=== PATIENT | male | born 1950 | race Caucasian/White ===

== ENCOUNTER 2016-11-11 10:48 | Inpatient (IN) | payer MEDICARE ==
[~2016-11-11] VITALS: Ht 177.8 cm; Wt 79.3 kg
[~2016-11-11 10:48] MED LIST: ALBU1AER INH; BACL10TA PO; FENT25DI T-DERMAL; LORA0.5T PO; METO25 PO; NITR.4 SL; OMEP40CA2 PO; PERC10TA27 PO
[2016-11-11 10:50] VITALS: BP 183/77; PULSE 74; RESP 18; TEMP 97.9; O2SAT 97
[2016-11-11 11:25] VITALS: RESP 18; O2SAT 97
--- NOTE | 2016-11-11 11:29 | PD ---
HPI Chief Complaint: Chest Pain Time Seen by Provider: 11:07 Travel History International Travel<30 days: No Contact w/Intl Traveler<30days: No Traveled to known affect area: No History of Present Illness HPI This patient complains of chest heaviness and pressure. It's located in the central sternal region. This been going on and off for 2 weeks now. He's had history of bypass grafting. He follows with Dr. Zuniga and reports having a nuclear stress test about one year ago. He has declined recommendations from the doctor to take aspirin and/or Plavix and does not do that. No shortness of breath. He is currently pain-free at this time. Severity is moderate when occurring. No obvious alleviating factors. PFSH Past Medical History Arthritis: Yes Asthma: No Autoimmune Disease: No Blood Disorders: No Anxiety: No Depression: No Heart Rhythm Problems: Yes Cancer: No Cardiovascular Problems: Yes (CABG (3 VESSEL)) High Cholesterol: Yes Chest Pain: Yes Congestive Heart Failure: No COPD: Yes Cerebrovascular Accident: No Coronary Artery Disease: Yes Diabetes: No Diminished Hearing: No Endocrine: No Gastrointestinal Disorders: Yes GERD: Yes Genitourinary: No Hepatitis: No Hiatal Hernia: Yes Hypertension: Yes Immune Disorder: No Implanted Vascular Access Dvce: Yes Kidney Stones: No Musculoskeletal: Yes (ARTHRITIS, DDD) Neurologic: Yes (NEUROPATHY LEFT FOOT/LEG/ARM/HAND) Psychiatric: Yes (ANXIETY) Reproductive: No Respiratory: Yes (COPD) Immunizations Current: No Migraines: No Renal Failure: No Seizures: No Sleep Apnea: No Thyroid Disease: No Triglycerides - High: Yes Ulcer: No PNEUMOCCOCAL Vaccine (Year): 2 Past Surgical History Abdominal Surgery: Yes (SARAH. ING. REP., (RIGHT SIDE X2), APPY) AICD: No Appendectomy: Yes Arteriovenous Shunt: No Body Medical Devices: LUMBAR HARDWARE Coronary Artery Bypass Graft: Yes (3x vessel) Ear Surgery: No Endocrine Surgery: No Eye Surgery: No Genitourinary Surgery: No Gynecologic Surgery: No Insulin Pump: No Joint Replacement: No Neurologic Surgery: Yes Oral Surgery: No Pacemaker: No Thoracic Surgery: Yes (CABG (3 VESSEL)) Social History Alcohol Use: No Tobacco Use: No Substance Use: No Allergies-Medications (Allergen,Severity, Reaction): Coded Allergies: Adhesives (Unverified Allergy, Severe, SKIN BREAKDOWN, 12/03/15) PAPER TAPE [place] Contrast Media (Verified Allergy, Severe, Anaphylaxis, 12/03/15) Flu Vaccine (Verified Allergy, Severe, GUILLIAN BARRE, 12/03/15) Betadine (Verified Allergy, Unknown, 12/03/15) Pt reacted to contrast dye request no Betadine Reported Meds & Prescriptions Reported Meds & Active Scripts Active Reported Infumorph 200 Inj (Morphine Sulfate) 10 Mg/Ml Inj 0.75 Mg EPIDURAL CONTINUOUS PRN Lorazepam 1 Mg Tab 1 Mg PO DAILY PRN Omeprazole 40 Mg Cap 40 Mg PO DAILY Oxycodone (Oxycodone HCl) 10 Mg Tab 10 Mg PO Q6H PRN Reglan (Metoclopramide HCl) 5 Mg Tab 5 Mg PO TIDAC Baclofen 10 Mg Tab 10 Mg PO Q8HR PRN Metoprolol Tartrate 25 Mg Tab 25 Mg PO DAILY Review of Systems General / Constitutional: No: Fever Eyes: No: Visual changes HENT: No: Headaches Cardiovascular: Positive: Chest Pain or Discomfort Respiratory: No: Shortness of Breath Gastrointestinal: No: Abdominal Pain Genitourinary: No: Dysuria Musculoskeletal: No: Pain Skin: No Rash Neurologic: No: Weakness Psychiatric: No: Depression Endocrine: No: Polydipsia Hematologic/Lymphatic: No: Easy Bruising Physical Exam Narrative GENERAL: Well-nourished, well-developed patient in no apparent distress. SKIN: Focused skin assessment reveals no rash and nodules. Skin is Warm and dry. HEAD: Atraumatic. Normocephalic. EYES: Pupils equal and round. No scleral icterus. No injection or drainage. ENT: No nasal bleeding or discharge. Mucous membranes pink and moist. NECK: Trachea midline. No JVD. CARDIOVASCULAR: Regular rate and rhythm. No murmur appreciated. RESPIRATORY: No accessory muscle use. Clear to auscultation. Breath sounds equal bilaterally. GASTROINTESTINAL: Abdomen soft, non-tender, nondistended. Hepatic and splenic margins not palpable. MUSCULOSKELETAL: No obvious deformities. No clubbing. No cyanosis. No edema. NEUROLOGICAL: Awake and alert. No obvious cranial nerve deficits. Motor grossly within normal limits. Normal speech. PSYCHIATRIC: Appropriate mood and affect; insight and judgment normal. Data Data Last Documented VS Vital Signs Date Time Temp Pulse Resp B/P Pulse Ox O2 Delivery O2 Flow Rate FiO2 11/11/16 12:04 68 18 132/84 98 Nasal Cannula 2 5/18/17 10:50 97.9 Orders Electrocardiogram (11/11/16 11:18) Basic Metabolic Panel (Bmp) (11/11/16 11:18) Ckmb (Isoenzyme) Profile (11/11/16 11:18) Complete Blood Count With Diff (11/11/16 11:18) Prothrombin Time / Inr (Pt) (11/11/16 11:18) Act Partial Throm Time (Ptt) (11/11/16 11:18) Troponin I (11/11/16 11:18) Chest, Single Ap (11/11/16 11:18) Ecg Monitoring (11/11/16 11:18) Iv Access Insert/Monitor (11/11/16 11:18) Oximetry (11/11/16 11:18) Aspirin (Aspirin) (11/11/16 11:30) Sodium Chloride 0.9% Flush (Ns Flush) (11/11/16 11:30) CKMB (11/11/16 11:26) CKMB% (11/11/16 11:26) Admit Order (Ed Use Only) (11/11/16 13:31) Labs Laboratory Tests Test 11/11/16 11:26 White Blood Count 10.2 TH/MM3 Red Blood Count 4.49 MIL/MM3 Hemoglobin 13.5 GM/DL Hematocrit 40.8 % Mean Corpuscular Volume 91.0 FL Mean Corpuscular Hemoglobin 30.2 PG Mean Corpuscular Hemoglobin 33.1 % Concent Red Cell Distribution Width 13.8 % Platelet Count 287 TH/MM3 Mean Platelet Volume 8.6 FL Neutrophils (%) (Auto) 52.5 % Lymphocytes (%) (Auto) 37.9 % Monocytes (%) (Auto) 6.4 % Eosinophils (%) (Auto) 2.0 % Basophils (%) (Auto) 1.2 % Neutrophils # (Auto) 5.3 TH/MM3 Lymphocytes # (Auto) 3.9 TH/MM3 Monocytes # (Auto) 0.6 TH/MM3 Eosinophils # (Auto) 0.2 TH/MM3 Basophils # (Auto) 0.1 TH/MM3 CBC Comment DIFF FINAL Differential Comment Prothrombin Time 11.0 SEC Prothromb Time International 1.0 RATIO Ratio Activated Partial 24.2 SEC Thromboplast Time Sodium Level 141 MEQ/L Potassium Level 3.8 MEQ/L Chloride Level 102 MEQ/L Carbon Dioxide Level 30.7 MEQ/L Anion Gap 8 MEQ/L Blood Urea Nitrogen 16 MG/DL Creatinine 0.98 MG/DL Estimat Glomerular Filtration 76 ML/MIN Rate Random Glucose 102 MG/DL Calcium Level 9.1 MG/DL Total Creatine Kinase 952 U/L Creatine Kinase MB 13.8 NG/ML Creatine Kinase MB % 1.4 % Troponin I LESS THAN 0.02 NG/ML MDM Medical Decision Making Medical Screen Exam Complete: Yes Emergency Medical Condition: Yes Medical Record Reviewed: Yes Differential Diagnosis Differential diagnosis includes MN, angina, pericarditis, pleurisy, GERD, anxiety. Narrative Course I have reviewed the patient's electronic medical record. Has been here multiple times for neck pain related events. He has had cervical surgery and has chronic pain and has a morphine pump IV placed I reviewed the EKG which shows sinus rhythm without ST elevation I reviewed the chest x-ray shows sinus rhythm without ectopy Extended cardiac monitoring shows sinus rhythm without ectopy CBC is normal Metabolic profile is normal CK is normal Troponin is normal Coagulation studies are normal I gave him an aspirin Patient's workup is negative and he is pain-free and asymptomatic. However he does have known coronary disease and has been having chest tightness on and off for 2 weeks. I was going to review with his registration representative Dr. Zuniga but he is out of town on vacation and unavailable. I'm going to make him a 23 hour observation in the chest pain center in order to rule out cardiac cause of his symptoms. Diagnosis Primary Impression: Chest pain Qualified Code: R07.2 - Precordial pain Admitting Information Admitting Physician Requests: Observation Darrion Griggs MD November 11, 2016 11:29
[2016-11-11] MEDS ORDERED: SODIUM CHLORIDE 0.9% FLUSH 10 ML FLUSH IVF PRN (11:30)
[2016-11-11] MEDS ORDERED: ASPIRIN 325 MG TAB PO ONE (11:30)
[2016-11-11 11:36] LABS: AUTOMATED NEUTROPHIL # 5.3 TH/MM3 (1.8-7.7); BASOPHIL # 0.1 TH/MM3 (0-0.2); BASOPHIL % 1.2 % (0.0-2.0); EOSINOPHIL # 0.2 TH/MM3 (0-0.4); HEMATOCRIT 40.8 % (39.0-51.0); HEMO FLAGS DIFF FINAL; LYMPH % 37.9 % (9.0-44.0); LYMPHOCYTE # 3.9 TH/MM3 (1.0-4.8); MEAN CORPUSCULAR HEMOGLOBIN 30.2 PG (27.0-34.0); MEAN CORPUSCULAR HGB CONC 33.1 % (32.0-36.0); MONO % 6.4 % (0.0-8.0); NEUT % 52.5 % (16.0-70.0); PLATELET COUNT 287 TH/MM3 (150-450); RED BLOOD COUNT 4.49 MIL/MM3 (4.50-5.90); RED CELL DISTRIBUTION WIDTH 13.8 % (11.6-17.2); WHITE BLOOD COUNT 10.2 TH/MM3 (4.0-11.0)
[2016-11-11 11:47] LABS: APTT (PATIENT) 24.2 SEC (24.3-30.1)
--- NOTE | 2016-11-11 11:50 | RADRPT ---
EXAM DATE/TIME: 11/11/2016 11:20 [place] COMPARISON: No previous studies available for comparison. INDICATIONS : Chest pains with shortness of breath. MEDICAL HISTORY : Myocardial infarction. Myocardial infarction. Diabetes mellitus type I. SURGICAL HISTORY : CABG. ENCOUNTER: Initial ACUITY: 1 day PAIN SCORE: Non-responsive. LOCATION: Bilateral chest FINDINGS: A single view of the chest demonstrates the lungs to be symmetrically aerated without evidence of mas s, infiltrate or effusion other than stable nodule right upper lobe. Clips and wires suggest CABG Th e cardiomediastinal contours are unremarkable. Osseous structures are intact. CONCLUSION: Stable examination. Clips and wires suggest CABG. Maxwell Edmondson MD on November 11, 2016 at 11:47 Board Certified Radiologist. This report was verified electronically.
[2016-11-11 11:51] LABS: ANION GAP 8 MEQ/L (5-15); BICARBONATE 30.7 MEQ/L (21.0-32.0); BLOOD UREA NITROGEN 16 MG/DL (7-18); CHLORIDE 102 MEQ/L (98-107); GLOMERULAR FILTRATION RATE 76 ML/MIN (>89); POTASSIUM 3.8 MEQ/L (3.5-5.1); SODIUM (NA) 141 MEQ/L (136-145)
[2016-11-11 11:55] LABS: CREATINE KINASE 952 U/L (39-308)
[2016-11-11 12:04] VITALS: BP 132/84; PULSE 68; RESP 18; O2SAT 98
[2016-11-11 12:07] LABS: CKMB 13.8 NG/ML (0.5-3.6)
[2016-11-11] MEDS ORDERED: LORA1TAB12 PO (12:38)
[2016-11-11] MEDS ORDERED: REGL5TAB PO (12:38)
[2016-11-11] MEDS ORDERED: METO25TA3 PO (12:38)
[2016-11-11] MEDS ORDERED: BACL10TA PO (12:38)
[2016-11-11] MEDS ORDERED: OXYC-395 PO (12:38)
[2016-11-11] MEDS ORDERED: [UNRECOGNIZED DRUG - CODE] EPIDURAL (12:38)
[2016-11-11] MEDS ORDERED: OMEP40CA2 PO (12:38)
[2016-11-11] MEDS ORDERED: SODIUM CHLOR 0.9% 1000 ML INJ 1,000 ML IV SCH (14:10)
[2016-11-11] MEDS ORDERED: ACETAMINOPHEN 500 MG CPLT PO PRN (14:15)
[2016-11-11] MEDS ORDERED: ONDANSETRON HCL 4 MG/2 ML VIAL IV PRN (14:15)
[2016-11-11] MEDS ORDERED: ALPRAZolam 0.25 MG TAB PO PRN (14:15)
[2016-11-11] MEDS ORDERED: SODIUM CHLORIDE 0.9% FLUSH 5 ML FLUSH IVF PRN (14:15)
--- NOTE | 2016-11-11 15:15 | HHI.HP ---
[facility] Primary Care Physician Ravi Ornelas DO Chief Complaint Chest pain History of Present Illness This is a 66-year-old male with history of CAD having a three-vessel bypass [address] Ortez that presents to ED complaining of one week of constant central chest pressure. He has been short of breath and diaphoretic intermittently. No nausea. He also states that he is having a hard time even standing up. He states after standing for about 45 minutes his legs become very weak and start to hurt and he has to sit down. He is having a difficult time even doing dishes. After sitting down for an hour the weakness will resolve. It doesn't really seem to affect his discomfort in his chest. He also history of hypertension. History of hyperlipidemia but does not take statins secondary to myalgias and weakness in extremities when he had a. He also has had Guillain [place] about 5 years ago. Review of Systems General: Patient denies fevers, chills recent, and recent travel HEENT: Patient denies headache, sore throat, difficulty swallowing. Cardiovascular: Has the chest discomfort as mentioned above. Denies sensation of heart beating rapidly or irregularly. No syncope. He has had diaphoresis. Respiratory: He has been short of breath. Denies inspirational chest discomfort. Denies coughing wheezing or hemoptysis. GI: Patient denies nausea, vomiting, diarrhea, abdominal pain, bloody stools. Musculoskeletal: He has had generalized myalgias were more so in the legs. Patient denies joint pain or edema. Denies calf pain or edema. Neurovascular: He has had generalized weakness but more so in the legs. Patient denies numbness, tingling. Denies headache. Endocrine: Denies polyuria and polydipsia. Hematologic: Denies easy bruising. Skin: Denies rash or itching. Past Family Social History Allergies: Coded Allergies: Adhesives (Unverified Allergy, Severe, SKIN BREAKDOWN, 12/03/15) PAPER TAPE OK Contrast Media (Verified Allergy, Severe, Anaphylaxis, 12/03/15) Flu Vaccine (Verified Allergy, Severe, GUILLIAN BARRE, 12/03/15) Betadine (Verified Allergy, Unknown, 12/03/15) Pt reacted to contrast dye request no Betadine Past Medical History CAD with a three-vessel bypass in 2009. Hypertension. Hyperlipidemia. Chronic neck pain. Guillan [place] 5 years ago. Denies diabetes. Past Surgical History He has had neck and back surgeries. He has had hernia repairs. He has had a three-vessel bypass in 2009. Appendectomy. Reported Medications Reported Meds & Active Scripts Active Reported Infumorph 200 Inj (Morphine Sulfate) 10 Mg/Ml Inj 0.75 Mg EPIDURAL CONTINUOUS PRN Lorazepam 1 Mg Tab 1 Mg PO DAILY PRN Omeprazole 40 Mg Cap 40 Mg PO DAILY Oxycodone (Oxycodone HCl) 10 Mg Tab 10 Mg PO Q6H PRN Reglan (Metoclopramide HCl) 5 Mg Tab 5 Mg PO TIDAC Baclofen 10 Mg Tab 10 Mg PO Q8HR PRN Metoprolol Tartrate 25 Mg Tab 25 Mg PO DAILY Active Ordered Medications Current Medications Medications (Trade) Dose Ordered Sig/Faviola Route Start Time Stop Time Status Last Admin (NS Flush) 2 ml UNSCH PRN IVF 11/11/16 14:15 (NS Flush) 2 ml BID IVF 11/11/16 21:00 (Tylenol) 500 mg Q4H PRN PO 11/11/16 14:15 ([place] 7.5-325 Mg) 1 tab Q4H PRN PO 11/11/16 14:15 (Zofran Inj) 4 mg Q6H PRN IV 11/11/16 14:15 Alprazolam 0.25 mg 0.25 mg Q8H PRN PO 11/11/16 14:15 (NS 1000 ml Inj) 1,000 ml @ 125 mls/hr Q8H IV 11/11/16 14:10 11/11/16 22:09 11/11/16 14:10 Family History His father had CAD. Social History Patient quit smoking in 2009 just prior to his bypass. Prior to that he smoked 2 and a pack of cigarettes daily for about 45 years. He denies alcohol or illicit drugs. He is . Physical Exam Vital Signs Vital Signs Date Time Temp Pulse Resp B/P Pulse Ox O2 Delivery O2 Flow Rate FiO2 11/11/16 12:04 68 18 132/84 98 Nasal Cannula 2 11/11/16 11:25 18 97 Room Air 11/11/16 10:58 70 18 98 Nasal Cannula 2 11/11/16 10:50 97.9 74 18 183/77 97 Physical Exam GENERAL: This is a well-nourished, well-developed patient, in no apparent distress. Patient speaks in clear complete sentences. Patient is pleasant. HEENT: Head is atraumatic and normocephalic. Neck is supple without lymphadenopathy and trachea is midline. No JVD or carotid bruits. CARDIOVASCULAR: Regular rate and rhythm without murmurs, gallops, or rubs. RESPIRATORY: Clear to auscultation. Breath sounds equal bilaterally. No wheezes , rales, or rhonchi. Chest wall is nontender. No use of accessory muscles. Well-healed midline scar over the sternum. GASTROINTESTINAL: Abdomen is nontender, nondistended. Abdomen soft. No obvious pulsatile mass or bruit. No CVA tenderness. Strong femoral pulses bilaterally. Normal bowel sounds in all quadrants. MUSCULOSKELETAL: Patient is moving upper and lower extremities freely however lower extremities are somewhat weaker. No calf tenderness or edema, no Homans sign. Strong pulses in upper and lower extremities. NEUROLOGICAL: Patient is alert and oriented. Cranial nerves 2-12 are grossly intact. Lower extremities are somewhat weaker as about a 4 out of 5 but symmetrical. Speech is clear. SKIN: No rash and turgor is normal. Laboratory Laboratory Tests Test 11/11/16 11:26 White Blood Count 10.2 Red Blood Count 4.49 Hemoglobin 13.5 Hematocrit 40.8 Mean Corpuscular Volume 91.0 Mean Corpuscular Hemoglobin 30.2 Mean Corpuscular Hemoglobin 33.1 Concent Red Cell Distribution Width 13.8 Platelet Count 287 Mean Platelet Volume 8.6 Neutrophils (%) (Auto) 52.5 Lymphocytes (%) (Auto) 37.9 Monocytes (%) (Auto) 6.4 Eosinophils (%) (Auto) 2.0 Basophils (%) (Auto) 1.2 Neutrophils # (Auto) 5.3 Lymphocytes # (Auto) 3.9 Monocytes # (Auto) 0.6 Eosinophils # (Auto) 0.2 Basophils # (Auto) 0.1 CBC Comment DIFF FINAL Differential Comment Prothrombin Time 11.0 Prothromb Time International 1.0 Ratio Activated Partial 24.2 Thromboplast Time Sodium Level 141 Potassium Level 3.8 Chloride Level 102 Carbon Dioxide Level 30.7 Anion Gap 8 Blood Urea Nitrogen 16 Creatinine 0.98 Estimat Glomerular Filtration 76 Rate Random Glucose 102 Calcium Level 9.1 Total Creatine Kinase 952 Creatine Kinase MB 13.8 Creatine Kinase MB % 1.4 Troponin I LESS THAN 0.02 Result Diagram: 11/11/16 1126 11/11/16 1126 Imaging Last 24 hours Impressions Chest X-Ray 11/11/16 1118 Signed Impressions: Service Date/Time: October 11:20 - CONCLUSION: Stable examination. Clips and wires suggest CABG. Maxwell Edmondson MD Course Initial EKG has sinus rhythm without significant ST segment depressions or elevations. Assessment and Plan Assessment and Plan * Chest pain: Patient's chest discomfort is atypical. He has had constant chest pressure for a week and his first troponin is normal. He has been seen by Dr. Moe Farrar of cardiology and the chest pain center. He will continue to have serial cardiac enzymes and EKGs for ruling out purposes. [facility] the weakness in his extremities and elevated CPK. * Elevated CPK: Patient will be given IV hydration. Will continue to trend. Will also get a ESR. * Weakness: This be further evaluated by Dr. Evans. I discussed this patient with Dr. Evans he will go for medical care at this time. Patient is agreeable to this plan. * Hypertension: Continue current medication. * Hyperlipidemia: Patient states he cannot tolerate statins. This can be discussed with his transfer specialist Dr. Zuniga. * Chronic neck and back pain: Patient has a morphine pump. Gabriel Chase November 11, 2016 15:15
[2016-11-11 15:30] LABS: CREATINE KINASE 839 U/L (39-308)
[2016-11-11 15:42] LABS: CKMB 10.6 NG/ML (0.5-3.6)
[2016-11-11] MEDS ORDERED: NALOXONE HCL 0.4 MG/ML AMP IV PRN (15:45)
[2016-11-11 15:49] VITALS: BP 139/74; PULSE 70; RESP 18; TEMP 98.3; O2SAT 93
--- NOTE | 2016-11-11 15:54 | HHI.HP ---
[facility] Service [facility] Primary Care Physician Ravi Ornelas DO Admission Diagnosis chest pain Diagnoses: (1) Chest pain (2) Lower extremity weakness (3) Hypertension (4) Rhabdomyolysis (5) Hyperlipidemia Chief Complaint: Chest pressure, leg weakness Travel History International Travel<30 Days: No Contact w/Intl Traveler <30 Da: No Traveled to Known Affected Are: No History of Present Illness The patient is a 66-year-old male with history of coronary artery disease and prior CABG 3 vessels who presented to the emergency department with complaint of chest pressure over the past week. He also states that he has been having episodes of significant lower extremity weakness. These have been occurring more frequently over the past few days. He reports that with chest pressure and lower extremity weakness, he has had dyspnea and diaphoretic episodes. He does not have chest pain currently. He reports intermittent shortness of breath, worse with exertion. He has a history of Guillain-Cuello syndrome, which was diagnosed about 5 years ago. Review of Systems Constitutional: COMPLAINS OF: Night Sweats (chronic), DENIES: Fever, Chills Eyes: DENIES: Blurred vision, Vision loss Ears, nose, mouth, throat: DENIES: Hearing loss Respiratory: COMPLAINS OF: Shortness of breath, DENIES: Cough, Wheezing, Sputum production Cardiovascular: COMPLAINS OF: Chest pain ("pressure"), Dyspnea on Exertion, DENIES: Palpitations, Lower Extremity Edema Gastrointestinal: DENIES: Abdominal pain, Constipation, Diarrhea, Nausea, Vomiting Genitourinary: DENIES: Urinary frequency, Urinary incontinence, Urgency, Hematuria, Dysuria, Nocturia Musculoskeletal: DENIES: Joint pain, Muscle aches Integumentary: DENIES: Pruritus, Rash Hematologic/lymphatic: DENIES: Bruising Neurologic: COMPLAINS OF: Localized weakness, DENIES: Headache, Paresthesias Past Family Social History Past Medical History Coronary artery disease Hypertension Hyperlipidemia Chronic neck pain Chronic back pain History of Guillain-Cuello syndrome Past Surgical History CABG 3 vessels in 2009 Multiple neck and back surgeries Multiple inguinal hernia repairs Appendectomy Reported Medications Infumorph 200 Inj (Morphine Sulfate) 10 Mg/Ml Inj 0.75 Mg EPIDURAL CONTINUOUS PRN Lorazepam 1 Mg Tab 1 Mg PO DAILY PRN Omeprazole 40 Mg Cap 40 Mg PO DAILY Oxycodone (Oxycodone HCl) 10 Mg Tab 10 Mg PO Q6H PRN Reglan (Metoclopramide HCl) 5 Mg Tab 5 Mg PO TIDAC Baclofen 10 Mg Tab 10 Mg PO Q8HR PRN Metoprolol Tartrate 25 Mg Tab 25 Mg PO DAILY Allergies: Coded Allergies: Adhesives (Unverified Allergy, Severe, SKIN BREAKDOWN, 12/03/15) PAPER TAPE OK Contrast Media (Verified Allergy, Severe, Anaphylaxis, 12/03/15) Flu Vaccine (Verified Allergy, Severe, GUILLIAN BARRE, 12/03/15) Betadine (Verified Allergy, Unknown, 12/03/15) Pt reacted to contrast dye request no Betadine Family History Denies Social History Denies alcohol or illicit drug use. Quit smoking in 2009. Had smoked 2 packs per day for about 45 years. Physical Exam Vital Signs Vital Signs Date Time Temp Pulse Resp B/P Pulse Ox O2 Delivery O2 Flow Rate FiO2 11/11/16 12:04 68 18 132/84 98 Nasal Cannula 2 11/11/16 11:25 18 97 Room Air 11/11/16 10:58 70 18 98 Nasal Cannula 2 11/11/16 10:50 97.9 74 18 183/77 97 Physical Exam GENERAL: Well-nourished, well-developed male in no acute distress. HEENT: Normocephalic, atraumatic. Pupils equal, round and reactive. Extraocular movements intact. No scleral icterus. No injection or drainage. Oropharynx is clear. Mucous membranes are moist. CARDIOVASCULAR: Regular rate and rhythm without murmurs, gallops, or rubs. RESPIRATORY: Clear to auscultation. No wheezes, rales, or rhonchi. Breathing is non-labored. GASTROINTESTINAL: Abdomen soft, non-tender, nondistended. EXTREMITIES: No lower extremity edema. No calf tenderness. PSYCH: Alert and oriented x 3. NEURO: Cranial nerves II through XII are grossly intact. Strength is 5/5 in all 4 extremities. Laboratory Laboratory Tests Test 11/11/16 11/11/16 11:26 14:36 White Blood Count 10.2 Red Blood Count 4.49 Hemoglobin 13.5 Hematocrit 40.8 Mean Corpuscular Volume 91.0 Mean Corpuscular Hemoglobin 30.2 Mean Corpuscular Hemoglobin 33.1 Concent Red Cell Distribution Width 13.8 Platelet Count 287 Mean Platelet Volume 8.6 Neutrophils (%) (Auto) 52.5 Lymphocytes (%) (Auto) 37.9 Monocytes (%) (Auto) 6.4 Eosinophils (%) (Auto) 2.0 Basophils (%) (Auto) 1.2 Neutrophils # (Auto) 5.3 Lymphocytes # (Auto) 3.9 Monocytes # (Auto) 0.6 Eosinophils # (Auto) 0.2 Basophils # (Auto) 0.1 CBC Comment DIFF FINAL Differential Comment Prothrombin Time 11.0 Prothromb Time International 1.0 Ratio Activated Partial 24.2 Thromboplast Time Sodium Level 141 Potassium Level 3.8 Chloride Level 102 Carbon Dioxide Level 30.7 Anion Gap 8 Blood Urea Nitrogen 16 Creatinine 0.98 Estimat Glomerular Filtration 76 Rate Random Glucose 102 Calcium Level 9.1 Total Creatine Kinase 952 839 Creatine Kinase MB 13.8 10.6 Creatine Kinase MB % 1.4 1.3 Troponin I LESS THAN 0.02 LESS THAN 0.02 Result Diagram: 11/11/16 1126 11/11/16 1126 Imaging Last Impressions Chest X-Ray 11/11/16 1118 Signed Impressions: Service Date/Time: October 11:20 - CONCLUSION: Stable examination. Clips and wires suggest CABG. Maxwell Edmondson MD Assessment and Plan Assessment and Plan 1. Chest pain/pressure: No pain currently. Initial troponin is negative. Patient sees Dr. Zuniga for cardiology. Check serial cardiac enzymes and EKGs. Continue aspirin, oxygen. 2. Lower extremity weakness: Uncertain etiology. CK is elevated. Possible rheumatologic versus neurologic etiology. Consult neurology. Monitor CK level. 3. Rhabdomyolysis: CK is elevated. Continue IV fluids. Monitor serum CK level as well as renal function. 4. Hypertension: Continue metoprolol. 5. Hyperlipidemia: Patient does not take statin secondary to adverse reactions in the past. 6. Coronary artery disease: Patient status post CABG 3 vessels in 2009. Continue blood pressure control. Will consult patient's chief electrician if necessary. 7. DVT prophylaxis: Heparin. Problem Qualifiers (1) Chest pain: Qualified Code: R07.2 - Precordial pain Darrion Evans MD November 11, 2016 15:54
[2016-11-11] MEDS ORDERED: BACLOFEN 10 MG TAB PO PRN (16:00)
[2016-11-11] MEDS ORDERED: PILL SPLITTER OTHER PRN (16:15)
--- NOTE | 2016-11-11 17:56 | MB ---
cc: BOLA EDWARDS DATE OF CONSULTATION: 11/11/2016 REASON FOR CONSULTATION: Weakness, rule out recurrent Guillain-Logan syndrome. HISTORY OF PRESENT ILLNESS Mr. Bonilla is a 66-year-old man who had a history Guillain Logan syndrome about ten years ago which responded well to IVIG. For the past week he notices a heaviness of his chest, difficulty with shortness of breath. Congestion feeling. He has had progressive weakness of both legs as well. No real weakness of the arms. PAST HISTORY 1. 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 History of hypertension 2. Hyperlipidemia 3. Coronary artery disease 4. Coronary artery bypass graft in 2009. MEDICATIONS: At home are; 1. Oxycodone for pain 2. Morphine sulfate 3. Lorazepam 4. Reglan 5. Baclofen 6. Metoprolol. ALLERGIES ADHESIVES CONTRAST MEDIA FLU VACCINE BETADINE NEUROLOGIC EXAMINATION VITAL SIGNS: Blood pressure is 139/74, pulse 70, respirations 18, temperature 9 degrees. NEUROLOGIC EXAMINATION: Higher cortical functions normal. Cranial nerves are intact. Motor exam he has 5/5 strength in all major groups in both upper extremities. She has 4/5 iliopsoas symmetric 5/5 quads symmetric 4/5 hamstring symmetric 4+/5 tib anterior and gastrocnemius after symmetric. He is areflexic in both upper and lower extremities. There is no Babinski. Sensory exam intact. LABORATORY DATA White count 10,002, hemoglobin 13.5, 140.8% platelet count 287,000, PT 11, INR one, APTT 24.2. Sodium is 141, potassium 3.8, chloride two, CO2 is 30.7. The BUN is 16, creatinine 0.98. 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 RECOMMENDATIONS We will get an MRI cervical, thoracic and lumbar spine if this is unremarkable. I recommend lumbar puncture and consider IVIG therapy. MD LITZY Mcneill/jori /4:53 PM /5:42 PM
[2016-11-11] MEDS: METOCLOPRAMIDE HCL 10 MG TAB PO SCH (18:00)
[2016-11-11] MEDS ORDERED: HEPARIN SODIUM - SQ 10,000 UNITS/ML VIAL SQ SCH (18:00)
[2016-11-11 18:23] LABS: CREATINE KINASE 955 U/L (39-308)
[2016-11-11 18:35] LABS: CKMB 11.4 NG/ML (0.5-3.6)
[2016-11-11] MEDS: LORazepam 1 MG TAB PO PRN (18:50)
[2016-11-11] MEDS: SODIUM CHLORIDE 0.9% FLUSH 5 ML FLUSH IVF SCH (19:52)
[2016-11-11] MEDS ORDERED: MORPHINE SULFATE 10 MG/ML OTHER PRN (20:00)
[2016-11-11] MEDS ORDERED: [UNRECOGNIZED DRUG - OTHER] OTHER PRN (20:00)
--- NOTE | 2016-11-11 21:09 | RADRPT ---
EXAM DATE/TIME: 11/11/2016 20:16 [facility] COMPARISON: No previous studies available for comparison. INDICATIONS : Neck pain. RADIATION DOSE: 29.79 CTDIvol (mGy) MEDICAL HISTORY : Gastroesophageal reflux disease. Anneliese Cuello, hiatal hernia SURGICAL HISTORY : Fusion, lumbar. CABG ENCOUNTER: Initial ACUITY: 1 day PAIN SCALE: 5/10 LOCATION: Bilateral neck TECHNIQUE: Volumetric scanning of the cervical spine was performed. Multiplanar reconstructions i n the sagittal, coronal and oblique axial planes were performed. Using automated exposure control a nd adjustment of the mA and/or kV according to patient size, radiation dose was kept as low as reason ably achievable to obtain optimal diagnostic quality images. FINDINGS: The patient has had a large laminectomy from C3 to C6 with unilateral fixation on the l eft. There is minimal central bulging at C2-C3 that is touching but not effacing the cord. There is inters pace ridging at C3-C4, C4-C5 and C5-C6. At C6-C7 there is a central disc bulge that is touching the cord. There is interspace ridging at C7-T1 that is touching the cord. CONCLUSION: 1. Extensive degenerative changes as described above. 2. Moderate spinal stenosis at C6-C7 and C7-T1. Kevin Lindquist MD FACR on November 11, 2016 at 20:52 Board Certified Radiologist. This report was verified electronically.
--- NOTE | 2016-11-11 21:21 | RADRPT ---
EXAM DATE/TIME: 11/11/2016 20:24 [facility] COMPARISON: No previous studies available for comparison. INDICATIONS : Upper back pain. RADIATION DOSE: 21.67 CTDIvol (mGy) ; Combined studies MEDICAL HISTORY : Chronic obstructive pulmonary disease. Anneliese Cuello, hiatal hernia SURGICAL HISTORY : CABG Fusion, lumbar. ENCOUNTER: Initial ACUITY: 1 day PAIN SCALE: 5/10 LOCATION: Bilateral upper back TECHNIQUE: Volumetric scanning of the thoracic spine was performed. Multiplanar reconstructions in the sagittal, coronal and oblique axial planes were performed. Using automated exposure control a nd adjustment of the mA and/or kV according to patient size, radiation dose was kept as low as reason ably achievable to obtain optimal diagnostic quality images. FINDINGS: There are degenerative changes in the thoracic spine. Upper thoracic spine is unremark able. T7-T8: There is mild interspace ridging at T7-T8 without significant spinal stenosis. T8-T9: The thecal sac has a normal diameter. No evidence of disc bulge or protrusion. T9-T10: The thecal sac has a normal diameter. No evidence of disc bulge or protrusion. T10-T11: The thecal sac has a normal diameter. No evidence of disc bulge or protrusion. T11-T12: The thecal sac has a normal diameter. No evidence of disc bulge or protrusion. T12-L1: There is mild interspace ridging. Spinal stimulator is noted. CONCLUSION: Degenerative changes, otherwise negative for radiographically significant stenosis. Kevin Lindquist MD FACR on November 11, 2016 at 21:16 Board Certified Radiologist. This report was verified electronically.
[2016-11-11 21:30] VITALS: BP 135/75; PULSE 70; RESP 19; TEMP 98.2; O2SAT 95
--- NOTE | 2016-11-11 21:38 | RADRPT ---
EXAM DATE/TIME: 11/11/2016 20:24 [facility] COMPARISON: No previous studies available for comparison. INDICATIONS : Lower back pain. RADIATION DOSE: 21.67 CTDIvol (mGy) ; Combined studies MEDICAL HISTORY : Chronic obstructive pulmonary disease. Anneliese Cuello, hiatal hernia SURGICAL HISTORY : CABG Inguinal hernia repair. Fusion, lumbar. ENCOUNTER: Initial ACUITY: 1 day PAIN SCALE: 5/10 LOCATION: Bilateral lower back TECHNIQUE: Volumetric scanning of the lumbar spine was performed. Multiplanar reconstructions in the sagittal, coronal and oblique axial planes were performed. Using automated exposure control and adjustment of the mA and/or kV according to patient size, radiation dose was kept as low as reasonab ly achievable to obtain optimal diagnostic quality images. FINDINGS: The patient has a spinal stimulator in place. There is hardware at the L3-4 level. L1-L2: Moderate interspace ridging is present at L1-2 with vacuum changes evident. Spinal stenosi s is minimal. L2-L3: There is mild disc bulging at L2-3 with degenerative changes of the facets. Spinal stenosi s is mild. L3-L4: Transpedicular fixation is evident. Spinal stenosis is mild. There is a hemilaminectomy o n the left. L4-L5: There is minimal anterolisthesis of L4 on L5 with moderate spinal stenosis and bilateral ne ural foraminal encroachment. Neural foraminal encroachment is worse on the right than the left. Lat eral recess stenosis is evident. L5-S1: There is mild bulging L5-S1 causing some flattening of the anterior thecal space. Mild deg enerative changes are present in the facets. CONCLUSION: Degenerative changes and previous fixation as described above. Most significant steno sis at the L4-5 level. Kevin Lindquist MD FACR on November 11, 2016 at 21:30 Board Certified Radiologist. This report was verified electronically.
[2016-11-11 23:35] VITALS: BP 125/70; PULSE 73; RESP 19; TEMP 98.2; O2SAT 96
[2016-11-12] VITALS (7 sets, daily range): BP systolic 103–130; BP diastolic 59–84; PULSE 68–93; RESP 18–20; TEMP 97.2–98.7; O2SAT 94–97
[2016-11-12 07:57] LABS: ALKALINE PHOSPHATASE 68 U/L (45-117); ALT (GPT) 21 U/L (12-78); ANION GAP 8 MEQ/L (5-15); AST (GOT) 23 U/L (15-37); BICARBONATE 28.9 MEQ/L (21.0-32.0); BLOOD UREA NITROGEN 15 MG/DL (7-18); CHLORIDE 104 MEQ/L (98-107); GLOMERULAR FILTRATION RATE 86 ML/MIN (>89); POTASSIUM 3.9 MEQ/L (3.5-5.1); SODIUM (NA) 141 MEQ/L (136-145); TOTAL BILIRUBIN ADULT 0.5 MG/DL (0.2-1.0)
--- NOTE | 2016-11-12 08:33 | HHI.PR ---
Review/Management Diagnosis Le weakness could be related to spinal stenosis Plan Will ask Dr Brewster opinion before proceeding with LP Diagnosis/Plan: Subjective Subjective Comments No acute events reported Active Medications Current Medications Medications (Trade) Dose Ordered Sig/Faviola Route Start Time Stop Time Status Last Admin (NS Flush) 2 ml UNSCH PRN IVF 11/11/16 14:15 (NS Flush) 2 ml BID IVF 11/11/16 21:00 (Tylenol) 500 mg Q4H PRN PO 11/11/16 14:15 (Smoaks 7.5-325 Mg) 1 tab Q4H PRN PO 11/11/16 14:15 (Zofran Inj) 4 mg Q6H PRN IV 11/11/16 14:15 (Xanax) 0.25 mg Q8H PRN PO 11/11/16 14:15 (Narcan Inj) 0.4 mg UNSCH PRN IV 11/11/16 15:45 (Lioresal) 10 mg Q8HR PRN PO 11/11/16 16:00 (Ativan) 1 mg DAILY PRN PO 11/11/16 16:00 11/11/16 18:50 (Lopressor) 25 mg DAILY PO 11/12/16 09:00 Patient Own Medication PT OWN MED: CONTINUOUS PRN OTHER 11/11/16 20:00 (Reglan) 5 mg TIDAC PO 11/11/16 17:00 11/11/16 18:00 (Protonix) 40 mg DAILY PO 11/12/16 09:00 (Pill Splitter) 1 ea UNSCH PRN OTHER 11/11/16 16:15 Allergies Allergies Coded Allergies Adhesives (Unverified Allergy, Severe, SKIN BREAKDOWN, 12/03/15) Contrast Media (Verified Allergy, Severe, Anaphylaxis, 12/03/15) Flu Vaccine (Verified Allergy, Severe, GUILLIAN BARRE, 12/03/15) Betadine (Verified Allergy, Unknown, 12/03/15) Exam I&O / VS Vital Signs Date Time Temp Pulse Resp B/P Pulse Ox O2 Delivery O2 Flow Rate FiO2 11/12/16 07:07 97.8 80 20 128/73 95 11/12/16 05:23 98.2 72 20 130/72 97 11/12/16 01:58 73 11/11/16 23:35 98.2 73 19 125/70 96 11/11/16 21:36 21 11/11/16 21:30 98.2 70 19 135/75 95 11/11/16 15:49 98.3 70 18 139/74 93 11/11/16 12:04 68 18 132/84 98 Nasal Cannula 2 11/11/16 11:25 18 97 Room Air 11/11/16 10:58 70 18 98 Nasal Cannula 2 11/11/16 10:50 97.9 74 18 183/77 97 Exam Comments alert, speech normal CN 2-12 normal MOTOR--5/5 BUE, 5/5 Bilateral iliopsoas, 4/5 bilateral hamstring, 5/5 bilateral tibialis anterior . He has spasticity in the right leg DTR--absent BUE and BLE, has babinski sign on left Objective Radiology Results CT cervical spine--stenosis C56, C7T1. Lumbar DT--stenosis Micro and Labs Laboratory Tests Test 11/11/16 11/11/16 11/11/16 11/12/16 11:26 14:36 17:30 06:58 White Blood Count 10.2 Red Blood Count 4.49 Hemoglobin 13.5 Hematocrit 40.8 Mean Corpuscular Volume 91.0 Mean Corpuscular Hemoglobin 30.2 Mean Corpuscular Hemoglobin 33.1 Concent Red Cell Distribution Width 13.8 Platelet Count 287 Mean Platelet Volume 8.6 Neutrophils (%) (Auto) 52.5 Lymphocytes (%) (Auto) 37.9 Monocytes (%) (Auto) 6.4 Eosinophils (%) (Auto) 2.0 Basophils (%) (Auto) 1.2 Neutrophils # (Auto) 5.3 Lymphocytes # (Auto) 3.9 Monocytes # (Auto) 0.6 Eosinophils # (Auto) 0.2 Basophils # (Auto) 0.1 CBC Comment DIFF FINAL Differential Comment Erythrocyte Sedimentation Rate 17 Prothrombin Time 11.0 Prothromb Time International 1.0 Ratio Activated Partial 24.2 Thromboplast Time Sodium Level 141 141 Potassium Level 3.8 3.9 Chloride Level 102 104 Carbon Dioxide Level 30.7 28.9 Anion Gap 8 8 Blood Urea Nitrogen 16 15 Creatinine 0.98 0.88 Estimat Glomerular Filtration 76 86 Rate Random Glucose 102 103 Calcium Level 9.1 8.7 Total Creatine Kinase 952 839 955 Creatine Kinase MB 13.8 10.6 11.4 Creatine Kinase MB % 1.4 1.3 1.2 Troponin I LESS THAN 0.02 LESS THAN 0.02 LESS THAN 0.02 Thyroid Stimulating Hormone 2.410 3rd Gen Total Bilirubin 0.5 Aspartate Amino Transf 23 (AST/SGOT) Alanine Aminotransferase 21 (ALT/SGPT) Alkaline Phosphatase 68 Total Protein 6.3 Albumin 3.2 Ravi Alvarado PhD November 12, 2016 08:33
--- NOTE | 2016-11-12 08:36 | HHI.PR ---
Subjective Remarks Follow up lower extremity weakness, chest pressure. Patient states that he has not been out of bed this morning, but still feels weak. He is still having chest pressure as well. Objective Vitals Vital Signs Date Time Temp Pulse Resp B/P Pulse Ox O2 Delivery O2 Flow Rate FiO2 11/12/16 07:07 97.8 80 20 128/73 95 11/12/16 05:23 98.2 72 20 130/72 97 11/12/16 01:58 73 11/11/16 23:35 98.2 73 19 125/70 96 11/11/16 21:36 21 11/11/16 21:30 98.2 70 19 135/75 95 11/11/16 15:49 98.3 70 18 139/74 93 11/11/16 12:04 68 18 132/84 98 Nasal Cannula 2 11/11/16 11:25 18 97 Room Air 11/11/16 10:58 70 18 98 Nasal Cannula 2 11/11/16 10:50 97.9 74 18 183/77 97 Result Diagram: 11/11/16 1126 11/12/16 0658 Imaging Last Impressions Chest X-Ray 11/11/16 1118 Signed Impressions: Service Date/Time: October 11:20 - CONCLUSION: Stable examination. Clips and wires suggest CABG. Maxwell Edmondson MD Thoracic Spine CT 11/11/16 0000 Signed Impressions: Service Date/Time: October 20:24 - CONCLUSION: Degenerative changes, otherwise negative for radiographically significant stenosis. Kevin Lindquist MD FACR Lumbar Spine CT 11/11/16 0000 Signed Impressions: Service Date/Time: October 20:24 - CONCLUSION: Degenerative changes and previous fixation as described above. Most significant stenosis at the L4-5 level. Kevin Lindquist MD FACR Cervical Spine CT 11/11/16 0000 Signed Impressions: Service Date/Time: October 20:16 - CONCLUSION: 1. Extensive degenerative changes as described above. 2. Moderate spinal stenosis at C6- C7 and C7-T1. Kevin Lindquist MD FACR Objective Remarks General: No acute distress. Heart: Regular rate and rhythm. No murmur. Lungs: Clear to auscultation bilaterally. No wheezes, rales, or rhonchi. Breathing is nonlabored. Abdomen: Soft, nontender, nondistended. Extremities: No lower extremity edema. Psych: Alert and oriented. Procedures None Urinary Catheter: No Vascular Central Line Catheter: No A/P Problem List: (1) Chest pain ICD Code: R07.9 Status: Acute (2) Lower extremity weakness ICD Code: R29.898 Status: Acute (3) Hypertension ICD Code: I10 Status: Chronic (4) Rhabdomyolysis ICD Code: M62.82 Status: Acute (5) Hyperlipidemia ICD Code: E78.5 Status: Chronic Assessment and Plan 1. Chest pain/pressure: Still having chest pressure. Serial troponins are negative. CK remains elevated. Consult patient's shirt marker, Dr. Zuniga. Continue aspirin, oxygen. 2. Lower extremity weakness: Uncertain etiology. CK remained elevated. Possible rheumatologic versus neurologic etiology. Appreciate neurology recommendations. Monitor CK level. CT reports noted. May need lumbar puncture. 3. Rhabdomyolysis: CK is elevated. Continue IV fluids. Monitor serum CK level as well as renal function. 4. Hypertension: Continue metoprolol. 5. Hyperlipidemia: Patient does not take statin secondary to adverse reactions in the past. 6. Coronary artery disease: Patient status post CABG 3 vessels in 2009. Continue blood pressure control. Will consult patient's shirt marker. 7. DVT prophylaxis: Heparin. Problem Qualifiers (1) Chest pain: Qualified Code: R07.2 - Precordial pain Darrion Evans MD November 12, 2016 08:36
[2016-11-12] MEDS ORDERED: METOPROLOL TARTRATE 25 MG TAB PO SCH (09:00)
[2016-11-12] MEDS ORDERED: ASPIRIN EC 325 MG TABEC PO SCH (09:00)
[2016-11-12] MEDS: METOCLOPRAMIDE HCL 10 MG TAB PO SCH ×3 (09:13→17:46)
[2016-11-12] MEDS: PANTOPRAZOLE SOD 40 MG DELAYED RELEASE TAB PO SCH (09:13)
[2016-11-12] MEDS: SODIUM CHLORIDE 0.9% FLUSH 5 ML FLUSH IVF SCH ×2 (09:14→19:56)
[2016-11-12 13:33] LABS: CKMB 7.5 NG/ML (0.5-3.6)
--- NOTE | 2016-11-12 18:14 | MB ---
cc: IAN REZA DATE OF CONSULTATION: 11/12/2016. HISTORY OF PRESENT ILLNESS: Mr. Bonilla is a 63-year-old white male with history of three-vessel bypass. He is a patient of Dr. Zuniga. He has had a one week history of substernal chest pressure and dyspnea on exertion. He has also had lower extremity weakness and episodes of diaphoresis. He continues to have intermittent chest pressure and dyspnea. History of Guillain-Davenport syndrome. PAST MEDICAL HISTORY: His past medical history is positive for: 1. Coronary bypass in 2009. 2. Hypertension. 3. Dyslipidemia. 4. Chronic neck pain and back pain. 5. History of Guillain-Davenport syndrome. 6. History of hernia repair. 7. Appendectomy. MEDICATIONS: His medications include: 1. Metoprolol. 2. Baclofen. 3. Reglan. 4. Oxycodone. 5. Lorazepam. ALLERGIES: 2. CONTRAST. 3. FLU VACCINE. 4. BETADINE. SOCIAL HISTORY: The patient does not smoke. He quit smoking in 2009. He does not drink alcohol. FAMILY HISTORY: Family history is negative for heart disease. REVIEW OF SYSTEMS: The review of systems is otherwise negative. PHYSICAL EXAMINATION: VITAL SIGNS: Blood pressure 125/64, pulse 68 and regular. HEAD, EYES, EARS, NOSE, THROAT: Negative. NECK: 2+ carotid upstrokes, no bruits. LUNGS: Clear. HEART: Regular with no murmurs, rubs or gallops. ABDOMEN: Abdomen soft. No bruits. EXTREMITIES: Without edema. 2+ distal pulses. NEUROLOGIC: Grossly nonfocal. EKGS: EKG was reviewed and showed normal sinus rhythm, normal axis and intervals, nonspecific T wave changes. LABS: Hemoglobin 13.5. Potassium 3.9, creatinine 0.9. CK 839, 955 and 1162. Troponin negative x3. DIAGNOSIS: 1. Unstable angina. 2. 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 3. Hypertension. 4. Rhabdomyolysis. 5. Dyslipidemia. 6. Previous history of smoking. DISPOSITION: Mr. Bonilla has continuing episodes of angina. He has been ruled out for myocardial infarction by enzymes. He has a history of previous bypass. 1. I recommend to continue therapy for angina. 2. Given his previous history, he may need cardiac catheterization for his further evaluation. 3. Dr. Zuniga, his primary tire man, will see him on Tuesday. MD GAYLE Handy/BEL /4:40 PM /6:02 PM RUTHY
--- NOTE | 2016-11-12 18:26 | MB ---
cc: MAYE LARSON M.D., ROHIT K. M.D. BYRNE, JAMES J. D.O. SCOTT, JAMES A. M.D. DATE OF CONSULTATION: 11/12/2016. REASON FOR CONSULTATION: Weakness. HISTORY OF PRESENT ILLNESS: This is a 66-year-old gentleman who presented to the emergency room on 11/11/16 with complaints of anterior chest and sternal area pressure and heaviness along with discomfort. He has a chronic history of neck and low back pain along with some numbness and paresthesias in the left ulnar aspect and the right anterior thigh. He has undergone C3-7 laminectomies with lateral mass fixation for multilevel cervical stenosis with spinal cord compression and myelopathy on August 04, 2015. He also has a history of L3-4 TLIF undertaken in March of 2014. More recently about five months ago, he had an intrathecal pain pump placed by the pain specialist which is helping with his back pain, but not as much the neck pain, he states. He also has a history of Guillain-Morley syndrome involving the lower extremities and from the mid thoracic spine area down although this was about twelve years ago. Because of his intrathecal pain pump, an MRI scan cannot be obtained but there is a complete spine CT scan obtained on 11/11/2016 which shows degenerative changes in the cervical, thoracic and lumbar spine. There is some degree of stenosis at the C6-7 and C7-T1 levels as well as L4-5 levels but it does not appear to be severe. He also had an MRI scan of the cervical and lumbar spine and January 20, 2016 which I reviewed 90 and this also did not show any significant cervical or lumbar spinal stenosis or any cord compression. There was mild to moderate stenosis noted at that time. PAST MEDICAL HISTORY: 1. Guillain-Morley syndrome. 2. Cervical myelopathy with multilevel stenosis status post decompression over a year ago. 3. chronic neck and low back pain with an intrathecal morphine pain pump placement. 4. Coronary artery disease status post bypass grafting in 2009. 5. Hyperlipidemia. MEDICATIONS: His medications are: 1. Baclofen 10 milligrams q. 8 hours PRN. 2. Lorazepam 1 milligram daily PRN. 3. Reglan 5 milligrams three times a day. 4. Metoprolol 25 milligrams daily. 5. Morphine intrathecal infusion. 6. Oxycodone 10 milligrams q. 6 hours PRN. 7. Prilosec 40 milligrams daily. ALLERGIES: 1. CONTRAST MEDIA. 2. FLU VACCINE. 3. BETADINE. 4. ADHESIVES. SOCIAL HISTORY: He is . Denies any alcohol or tobacco use. LABORATORY FINDINGS: White blood cell count is 10.2, hemoglobin 13.5, platelet count is 287,000. Sedimentation rate is 17. His creatine kinase is elevated at 1262, although his troponin level is less than 0.02. Sodium 141, potassium 3.9, BUN 15, creatinine 0.88, glucose 103. Toxicology screen is negative. PHYSICAL EXAMINATION: VITAL SIGNS: Temperature 97.2, pulse is 68, respiratory 18, blood pressure 125/64, oxygen saturation 96% on room air. HEAD: No Gonzalez's or raccoon sign. NECK: He has a posterior cervical well-healed incision site with moderate restriction of range of motion. CHEST: Clear bilaterally. HEART: Regular rate rhythm. Normal S1-S2. ABDOMEN: Abdomen soft and nontender. EXTREMITIES: No cyanosis or edema. NEUROLOGICAL EXAMINATION: He is awake, alert. Cranial nerves intact. Motor strength in the upper extremities is 5/5 and in the lower extremities overall slight iliopsoas weakness but 5/5 strength. No Lola's. No Babinski. Sensation is intact. No clonus. He denies any incontinence. IMPRESSION: History of multilevel cervical stenosis with myelopathy status post posterior cervical decompression over a year ago and subsequent postoperative MRI scan did not reveal any residual stenosis or any cord compression. He has also had an MRI scan last year which revealed mild to moderate L4-5 spinal stenosis. Findings currently on CT scan appear to be similar. His complaints of anterior chest wall pain and tightness along with subjective lower extremity weakness do not appear to be related to any spinal pathology at this point. PLAN: 1. Further work up per the neurology service and I believe lumbar puncture and workup for Guillain-Morley is being undertaken also. 2. Recommend rehabilitation with physical therapy along with pain control. 3. I believe is also awaiting a cardiology evaluation. At this point, he will not benefit from any neurosurgical intervention. I have discussed with the patient who appreciated evaluation and understands and all questions were answered. MD CHAPARRITA Moran/BEL /4:58 PM /6:11 PM
--- NOTE | 2016-11-12 19:40 | EKG ---
Date Performed: 11/11/2016 Time Performed: 17:38:07 PTAGE: 66 years EKG: Sinus rhythm NONSPECIFIC T-WAVE ABNORMALITY BORDERLINE ECG Artifact Since PREVIOUS TRACING , no significant change noted PREVIOUS TRACIN11/11/2016 11.00 DOCTOR: Margaret Do Interpretating Date/Time 11/12/2016 19:40:05
--- NOTE | 2016-11-12 19:41 | EKG ---
Date Performed: 11/11/2016 Time Performed: 14:27:07 PTAGE: 66 years EKG: Sinus rhythm NONSPECIFIC T-WAVE ABNORMALITY BORDERLINE ECG Since previous tracing, no significant change noted NO PREVIOUS TRACING DOCTOR: Margaret Do Interpretating Date/Time 11/12/2016 19:41:06
[2016-11-12] MEDS: LORazepam 1 MG TAB PO PRN (19:56)
[2016-11-12] MEDS: METOPROLOL TARTRATE 25 MG TAB PO SCH (19:56)
--- NOTE | 2016-11-12 20:11 | EKG ---
Date Performed: 11/11/2016 Time Performed: 11:00:31 PTAGE: 66 years EKG: Sinus rhythm WITH SINUS ARRHYTHMIA POSSIBLE LEFT ATRIAL ENLARGEMENT NONSPECIFIC T-WAVE ABNORMALITY BORDERLINE ECG Since PREVIOUS TRACING , no significant change noted DOCTOR: Margaret Do Interpretating Date/Time 11/12/2016 20:10:45
[2016-11-13] VITALS (9 sets, daily range): BP systolic 103–128; BP diastolic 56–81; PULSE 68–95; RESP 17–20; TEMP 96.8–98.6; O2SAT 93–99
[2016-11-13 06:09] LABS: CKMB 6.9 NG/ML (0.5-3.6)
[2016-11-13] MEDS: ISOSORBIDE MONONITRATE 30 MG TAB PO SCH (06:22)
[2016-11-13] MEDS ORDERED: ASPIRIN EC 81 MG TABEC PO SCH (09:00)
[2016-11-13] MEDS: SODIUM CHLORIDE 0.9% FLUSH 5 ML FLUSH IVF SCH ×2 (09:00→19:59)
--- NOTE | 2016-11-13 10:00 | HHI.PR ---
Subjective Remarks Follow up for lower extremity weakness, chest heaviness. The patient reports continued diffuse lower extremity weakness and unsteadiness with ambulation. 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 He is also still having episodes of chest heaviness and associated shortness of breath. He would like to proceed with lumbar puncture when possible. Thoroughly discussed the plan and recommendations with him and his . The patient is also requesting a room upstairs, wants a shower. Objective Vitals Vital Signs Date Time Temp Pulse Resp B/P Pulse Ox O2 Delivery O2 Flow Rate FiO2 11/13/16 07:51 96.8 79 17 103/70 93 11/13/16 03:44 77 11/13/16 03:43 98.2 68 18 115/60 94 11/12/16 23:48 98.3 78 19 103/59 94 11/12/16 19:05 98.7 93 19 130/84 94 11/12/16 15:25 97.2 68 18 125/64 96 11/12/16 11:13 98.4 71 18 125/63 95 Result Diagram: 11/11/16 1126 11/12/16 0658 Imaging Last Impressions Chest X-Ray 11/11/16 1118 Signed Impressions: Service Date/Time: October 11:20 - CONCLUSION: Stable examination. Clips and wires suggest CABG. Maxwell Edmondson MD Thoracic Spine CT 11/11/16 0000 Signed Impressions: Service Date/Time: October 20:24 - CONCLUSION: Degenerative changes, otherwise negative for radiographically significant stenosis. Kevin Lindquist MD FACR Lumbar Spine CT 11/11/16 0000 Signed Impressions: Service Date/Time: October 20:24 - CONCLUSION: Degenerative changes and previous fixation as described above. Most significant stenosis at the L4-5 level. Kevin Lindquist MD FACR Cervical Spine CT 11/11/16 0000 Signed Impressions: Service Date/Time: October 20:16 - CONCLUSION: 1. Extensive degenerative changes as described above. 2. Moderate spinal stenosis at C6- C7 and C7-T1. Kevin Lindquist MD FACR Objective Remarks GENERAL: Well-nourished, well-developed pleasant male patient in NAD. SKIN: Warm and dry. No rash. HEENT: Normocephalic. Atraumatic. Pupils equal and round. Mucous membranes pink and moist. NECK: Supple. Trachea midline. CARDIOVASCULAR: Regular rate and rhythm. S1, S2 noted. No murmur appreciated. RESPIRATORY: No accessory muscle use. Clear to auscultation. Breath sounds equal bilaterally. GASTROINTESTINAL: Abdomen soft, non-tender, nondistended. Normoactive bowel sounds x4. MUSCULOSKELETAL: No obvious deformities. Extremities without clubbing, cyanosis , or edema. NEUROLOGICAL: Awake and alert. No obvious cranial nerve deficits. Motor grossly within normal limits. 5/5 muscle strength in bilateral upper extremities , 4/5 strength bilateral lower extremities. Normal speech. PSYCHIATRIC: Appropriate mood and affect; insight and judgment normal. Procedures None Medications and IVs Current Medications Medications (Trade) Dose Ordered Sig/Faviola Route Start Time Stop Time Status Last Admin (NS Flush) 2 ml UNSCH PRN IVF 11/11/16 14:15 (NS Flush) 2 ml BID IVF 11/11/16 21:00 11/12/16 19:56 (Tylenol) 500 mg Q4H PRN PO 11/11/16 14:15 ([place] 7.5-325 Mg) 1 tab Q4H PRN PO 11/11/16 14:15 (Zofran Inj) 4 mg Q6H PRN IV 11/11/16 14:15 (Narcan Inj) 0.4 mg UNSCH PRN IV 11/11/16 15:45 (Lioresal) 10 mg Q8HR PRN PO 11/11/16 16:00 (Ativan) 1 mg DAILY PRN PO 11/11/16 16:00 11/12/16 19:56 Patient Own Medication PT OWN MED: CONTINUOUS PRN OTHER 11/11/16 20:00 (Reglan) 5 mg TIDAC PO 11/11/16 17:00 11/12/16 17:46 (Protonix) 40 mg DAILY PO 11/12/16 09:00 11/12/16 09:13 (Pill Splitter) 1 ea UNSCH PRN OTHER 11/11/16 16:15 (Lopressor) 25 mg BID PO 11/12/16 21:00 11/12/16 19:56 (Imdur) 30 mg DAILY@07 PO 11/13/16 07:00 11/13/16 06:22 A/P Problem List: (1) Chest pain ICD Code: R07.9 Status: Acute (2) Lower extremity weakness ICD Code: R29.898 Status: Acute (3) Hypertension ICD Code: I10 Status: Chronic (4) Rhabdomyolysis ICD Code: M62.82 Status: Acute (5) Hyperlipidemia ICD Code: E78.5 Status: Chronic Assessment and Plan 66-year-old male with history of CAD s/p CABG 3 vessels, 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 Chest pain/pressure/heaviness with hx of CAD s/p CABG: Still having chest pressure. ACS ruled out with negative serial troponins x3 however CK remains elevated. Consult patient's pediatric dentist, Dr. Zuniga, seen by Dr. Valverde who recommends continuing medical management for now and have Dr. Zuniga see him on Wednesday 11/15, may need cardiac catheterization. Aspirin on hold for LP. Continue BB, Imdur. O2 as needed. 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 CK remains elevated at 1250, Monitor CK level. 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 Consulted neurology, patient may need lumbar puncture, last received aspirin 325mg on 11/11. Neurosurgery consulted by neurologist, agrees with proceeding with LP. Await further neurology recommendations. Rhabdomyolysis: CK elevated 1250. Continue IV fluids. Monitor serum CK level as well as renal function. Hypertension: Continue metoprolol. Hyperlipidemia: Patient does not take statin secondary to adverse reactions in the past. DVT prophylaxis: teds/SCDs. Chemical prophylaxis on hold for possible upcoming Lumbar Puncture. Problem Qualifiers (1) Chest pain: Qualified Code: R07.2 - Precordial pain Blanca Day PA-C November 13, 2016 10:00 am
[2016-11-13] MEDS: METOCLOPRAMIDE HCL 10 MG TAB PO SCH ×3 (10:34→17:14)
[2016-11-13] MEDS: METOPROLOL TARTRATE 25 MG TAB PO SCH ×2 (10:34→19:59)
[2016-11-13] MEDS: PANTOPRAZOLE SOD 40 MG DELAYED RELEASE TAB PO SCH (10:34)
--- NOTE | 2016-11-13 19:36 | HHI.PR ---
Review/Management Diagnosis H/o GBS Recent onset LE weakness right > left Muscle cramps H/o cervical myelopathy, C6-7 spinal stenosis Lumbar spine degenerative disc disease, L4-5 Plan Neuro checks Q 4h Schedule LP for Tuesday morning Hold ASA Coordinated with ANIA Day in this regards Diagnosis/Plan: Subjective Subjective Comments No new complaints Mild chest pressure, denies SOB, difficulty swallowing or palpitations No neck pain or back pain NSG do not feel the symptoms are related to lumbar stenosis Active Medications Current Medications Medications (Trade) Dose Ordered Sig/Faviola Route Start Time Stop Time Status Last Admin (NS Flush) 2 ml UNSCH PRN IVF 11/11/16 14:15 (NS Flush) 2 ml BID IVF 11/11/16 21:00 11/12/16 19:56 (Tylenol) 500 mg Q4H PRN PO 11/11/16 14:15 ([place] 7.5-325 Mg) 1 tab Q4H PRN PO 11/11/16 14:15 (Zofran Inj) 4 mg Q6H PRN IV 11/11/16 14:15 (Narcan Inj) 0.4 mg UNSCH PRN IV 11/11/16 15:45 (Lioresal) 10 mg Q8HR PRN PO 11/11/16 16:00 (Ativan) 1 mg DAILY PRN PO 11/11/16 16:00 11/12/16 19:56 Patient Own Medication PT OWN MED: CONTINUOUS PRN OTHER 11/11/16 20:00 (Reglan) 5 mg TIDAC PO 11/11/16 17:00 11/13/16 17:14 (Protonix) 40 mg DAILY PO 11/12/16 09:00 11/13/16 10:34 (Pill Splitter) 1 ea UNSCH PRN OTHER 11/11/16 16:15 (Lopressor) 25 mg BID PO 11/12/16 21:00 11/13/16 10:34 (Imdur) 30 mg DAILY@07 PO 11/13/16 07:00 11/13/16 06:22 Allergies Allergies Coded Allergies Adhesives (Unverified Allergy, Severe, SKIN BREAKDOWN, 12/03/15) Contrast Media (Verified Allergy, Severe, Anaphylaxis, 12/03/15) Flu Vaccine (Verified Allergy, Severe, GUILLIAN BARRE, 12/03/15) Betadine (Verified Allergy, Unknown, 12/03/15) Exam I&O / VS 11/12/16 11/12/16 11/13/16 15:00 23:00 07:00 # Voids 3 Vital Signs Date Time Temp Pulse Resp B/P Pulse Ox O2 Delivery O2 Flow Rate FiO2 11/13/16 18:25 95 11/13/16 16:00 98.4 69 17 128/70 95 11/13/16 12:00 98.2 73 18 108/56 95 11/13/16 07:51 96.8 79 17 103/70 93 11/13/16 03:44 77 11/13/16 03:43 98.2 68 18 115/60 94 11/12/16 23:48 98.3 78 19 103/59 94 General: Alert and Oriented, No acute distress Eye: PERRL, Normal conjuctiva Respiratory: Lungs CTA Cardiology: Normal rate, No murmur Neurologic: Alert, Oriented, Normal sensory, CN II-XII intact, Other Psychiatric: Cooperative, Appropriate mood & affect Objective Radiology Results Last 72 hours Impressions Chest X-Ray 11/11/16 1118 Signed Impressions: Service Date/Time: October 11:20 - CONCLUSION: Stable examination. Clips and wires suggest CABG. Maxwell Edmondson MD Thoracic Spine CT 11/11/16 0000 Signed Impressions: Service Date/Time: October 20:24 - CONCLUSION: Degenerative changes, otherwise negative for radiographically significant stenosis. Kevin Lindquist MD FACR Lumbar Spine CT 11/11/16 0000 Signed Impressions: Service Date/Time: October 20:24 - CONCLUSION: Degenerative changes and previous fixation as described above. Most significant stenosis at the L4-5 level. Kevin Lindquist MD FACR Cervical Spine CT 11/11/16 0000 Signed Impressions: Service Date/Time: October 20:16 - CONCLUSION: 1. Extensive degenerative changes as described above. 2. Moderate spinal stenosis at C6- C7 and C7-T1. Kevin Lindquist MD FACR Micro and Labs Laboratory Tests Test 11/13/16 04:25 Total Creatine Kinase 1250 Creatine Kinase MB 6.9 Creatine Kinase MB % 0.6 Luis Hunt MD November 13, 2016 19:35
[2016-11-13] MEDS: ACETAMINOPHEN/HYDROcodone 325 MG/7.5 MG TAB PO PRN (19:59)
[2016-11-13] MEDS: LORazepam 1 MG TAB PO PRN (21:39)
[2016-11-14] VITALS (8 sets, daily range): BP systolic 106–128; BP diastolic 55–70; PULSE 69–85; RESP 16–20; TEMP 98–98.5; O2SAT 92–95
[2016-11-14] MEDS: ACETAMINOPHEN/HYDROcodone 325 MG/7.5 MG TAB PO PRN ×3 (06:21→21:21)
[2016-11-14] MEDS: ISOSORBIDE MONONITRATE 30 MG TAB PO SCH (06:21)
[2016-11-14] MEDS: SODIUM CHLORIDE 0.9% FLUSH 5 ML FLUSH IVF SCH ×2 (09:00→21:00)
[2016-11-14 09:38] LABS: CREATINE KINASE 1606 U/L (39-308)
[2016-11-14] MEDS: METOCLOPRAMIDE HCL 10 MG TAB PO SCH ×3 (09:42→17:00)
[2016-11-14] MEDS: METOPROLOL TARTRATE 25 MG TAB PO SCH ×2 (09:42→21:20)
[2016-11-14] MEDS: PANTOPRAZOLE SOD 40 MG DELAYED RELEASE TAB PO SCH (09:43)
[2016-11-14 09:50] LABS: CKMB 10.9 NG/ML (0.5-3.6)
[2016-11-14] MEDS ORDERED: HEPARIN SODIUM - SQ 10,000 UNITS/ML VIAL SQ ONE ×3 (11:30→22:00)
--- NOTE | 2016-11-14 11:52 | HHI.PR ---
Subjective Remarks Follow up for lower extremity weakness, chest heaviness. The patient believes his symptoms are worsening. He reports continued lower extremity weakness with muscle cramps in his calves and quadriceps; although still able to ambulate the hallway. He also reports continued chest heaviness and associated shortness of breath. He also feels he is now getting weak in his neck and starting to lose his voice. He is very concerned this is reactivation of Guillain [place]. He wants to proceed with lumbar puncture tomorrow as discussed with Dr. Alvarado and Dr. Hunt. Discussed extensively with patient and at bedside, the patient was very worried about anticoagulation ordered by cardiology. He does not want to delay his lumbar puncture however he does also agree to cardiac catheterization after the LP if recommended by his fire claims adjuster Dr. Zuniga. All questions were answered. Objective Vitals Vital Signs Date Time Temp Pulse Resp B/P Pulse Ox O2 Delivery O2 Flow Rate FiO2 11/14/16 08:00 98.2 85 18 127/61 92 11/14/16 04:00 98.1 75 18 106/55 94 11/14/16 00:00 98.0 73 16 108/66 94 11/13/16 20:48 99 11/13/16 20:03 Room Air 11/13/16 20:00 98.5 71 18 120/61 95 11/13/16 19:51 70 11/13/16 18:25 95 11/13/16 16:30 Room Air 11/13/16 16:00 98.4 69 17 128/70 95 11/13/16 12:00 98.2 73 18 108/56 95 I/O 11/13/16 11/13/16 11/13/16 11/14/16 11/14/16 11/14/16 07:00 15:00 23:00 07:00 15:00 23:00 Intake Total 1080 ml 240 ml Output Total 500 ml Balance 580 ml 240 ml Intake Oral 1080 ml 240 ml Output Urine Total 500 ml # Voids 1 # Bowel Movements 0 0 Result Diagram: 11/11/16 1126 11/12/16 0658 Imaging Last Impressions Chest X-Ray 11/11/16 1118 Signed Impressions: Service Date/Time: October 11:20 - CONCLUSION: Stable examination. Clips and wires suggest CABG. Maxwell Edmondson MD Thoracic Spine CT 11/11/16 0000 Signed Impressions: Service Date/Time: October 20:24 - CONCLUSION: Degenerative changes, otherwise negative for radiographically significant stenosis. Kevin Lindquist MD FACR Lumbar Spine CT 11/11/16 0000 Signed Impressions: Service Date/Time: October 20:24 - CONCLUSION: Degenerative changes and previous fixation as described above. Most significant stenosis at the L4-5 level. Kevin Lindquist MD FACR Cervical Spine CT 11/11/16 0000 Signed Impressions: Service Date/Time: October 20:16 - CONCLUSION: 1. Extensive degenerative changes as described above. 2. Moderate spinal stenosis at C6- C7 and C7-T1. Kevin Lindquist MD FACR Objective Remarks GENERAL: Well-nourished, well-developed pleasant male patient in [facility]. SKIN: Warm and dry. No rash. HEENT: Normocephalic. Atraumatic. Pupils equal and round. Mucous membranes pink and moist. NECK: Supple. Trachea midline. CARDIOVASCULAR: Regular rate and rhythm. S1, S2 noted. No murmur appreciated. RESPIRATORY: No accessory muscle use. Clear to auscultation. Breath sounds equal bilaterally. GASTROINTESTINAL: Abdomen soft, non-tender, nondistended. Normoactive bowel sounds x4. MUSCULOSKELETAL: No obvious deformities. Extremities without clubbing, cyanosis , or edema. NEUROLOGICAL: Awake and alert. No obvious cranial nerve deficits. Motor grossly within normal limits. 5/5 muscle strength in bilateral upper extremities , 4/5 strength bilateral lower extremities. Normal speech. PSYCHIATRIC: Appropriate mood and affect; insight and judgment normal. Procedures None Medications and IVs Current Medications Medications (Trade) Dose Ordered Sig/Faviola Route Start Time Stop Time Status Last Admin (NS Flush) 2 ml UNSCH PRN IVF 11/11/16 14:15 (NS Flush) 2 ml BID IVF 11/11/16 21:00 11/14/16 09:00 (Tylenol) 500 mg Q4H PRN PO 11/11/16 14:15 ([place] 7.5-325 Mg) 1 tab Q4H PRN PO 11/11/16 14:15 11/14/16 11:28 (Zofran Inj) 4 mg Q6H PRN IV 5/18/17 14:15 (Narcan Inj) 0.4 mg UNSCH PRN IV 11/11/16 15:45 (Lioresal) 10 mg Q8HR PRN PO 11/11/16 16:00 (Ativan) 1 mg DAILY PRN PO 11/11/16 16:00 11/13/16 21:39 Patient Own Medication PT OWN MED: CONTINUOUS PRN OTHER 11/11/16 20:00 (Reglan) 5 mg TIDAC PO 11/11/16 17:00 11/14/16 09:42 (Protonix) 40 mg DAILY PO 11/12/16 09:00 11/14/16 09:43 (Pill Splitter) 1 ea UNSCH PRN OTHER 11/11/16 16:15 (Lopressor) 25 mg BID PO 11/12/16 21:00 11/14/16 09:42 (Welchol) 625 mg Q12H PO 11/14/16 12:00 (Nitroglycerin 2% Oint) 0.5 inch Q6H TOPICAL 11/14/16 11:00 (Heparin Inj) 5,000 units ONCE ONCE SQ 11/14/16 16:00 11/14/16 16:01 (Heparin Inj) 5,000 units ONCE ONCE SQ 11/14/16 22:00 11/14/16 22:01 A/P Problem List: (1) Chest pain ICD Code: R07.9 Status: Acute (2) Lower extremity weakness ICD Code: R29.898 Status: Acute (3) Hypertension ICD Code: I10 Status: Chronic (4) Rhabdomyolysis ICD Code: M62.82 Status: Acute (5) Hyperlipidemia ICD Code: E78.5 Status: Chronic Assessment and Plan 66-year-old male with history of CAD s/p CABG 3 vessels, 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 Chest pain/pressure/heaviness with hx of CAD s/p CABG 7yrs ago: Still having chest "heaviness". ACS ruled out with negative serial troponins x3 however CK remains elevated. Consult patient's fire claims adjuster Dr. Zuniga, seen by Dr. Valverde & Dr. Green who recommends continuing medical management for now and have Dr. Zuniga see him on Wednesday 11/15, may need cardiac catheterization. Aspirin on hold for LP. Continue BB, Imdur. O2 as needed. Started on nitro paste. Cardiology ordered sq Heparin, RN confirmed with interventional radiology ok to give prior to LP tomorrow, discussed with the patient. 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 CK trending up to 1606, Monitor CK level. 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 Consulted neurology, ordered LP for tomorrow 11/15, last received aspirin 325mg on 11/11. Neurosurgery consulted by neurologist, agrees with proceeding with LP. Rhabdomyolysis: CK elevated 1606. Continue IV fluids. Monitor serum CK level as well as renal function. Hypertension: Continue metoprolol. Hyperlipidemia: Patient does not take statin secondary to adverse reactions in the past. Started on Welchol. DVT prophylaxis: teds/SCDs. SQ heparin for now. Problem Qualifiers (1) Chest pain: Qualified Code: R07.2 - Precordial pain Blanca Day PA-C November 14, 2016 11:52 Blanca Day PA-C November 14, 2016 11:52
[2016-11-14] MEDS: COLESEVELAM HCL 625 MG TAB PO SCH (12:02)
[2016-11-14] MEDS: NITROGLYCERIN 2% OINT 1 GM PACKET TOPICAL SCH ×3 (12:03→22:10)
[2016-11-14] MEDS: SODIUM CHLOR 0.9% 1000 ML INJ 1,000 ML IV SCH ×2 (12:09→22:10)
--- NOTE | 2016-11-14 16:51 | EKG ---
Date Performed: 11/14/2016 Time Performed: 06:16:56 PTAGE: 66 years EKG: Sinus rhythm . Possible anterior infarct - age undetermined Lateral T wave changes may be due to myocardial ischem ia Abnormal ECG PREVIOUS TRACING 11/11/16 @ 17.38.07 Compared to prior tracing no significant change DOCTOR: Margaret Do Interpretating Date/Time 11/14/2016 16:48:27
--- NOTE | 2016-11-14 20:58 | MG ---
cc: GABRIELA MA M.D. Lab No: Date: 11/14/2016 Age: Sex: M Race: DATE OF 1950, 66 years old ELECTROENCEPHALOGRAM NUMBER [id number] Hunt. ROOM 1412 With photic stimulation. EEG is awake, drowsy asleep. No imaging reported. This is a 66-year-old man with lower extremity weakness, right greater than left. History of cervical myelopathy, C6-C7 stenosis. Lumbar disease, Guillain-[place] syndrome history, heart disease, irregular heartbeat, posttraumatic stress disorder. MEDICATIONS 1. Imdur. 2. Protonix. 3. [place]. DESCRIPTION OF RECORD There is a lot of eye flutter. Some mild 5-6 Hz slowing seen. Somewhat low amplitude EEG. The patient noted to be talking, interference with muscle artifact, overall a slow background. There is some PVCs seen. Washcloth is put over his eyes. Looks like a sinus rhythm but difficult to tell on this one lead EKG. There is no epileptiform features. Just mild driving response with photic stimulation seen. IMPRESSION Abnormal EEG due to background slowing consistent with encephalopathy of various etiology. No evidence of any epileptic activity in this one recording. Clinical correlation. MD EVER Youssef/JONAS /8:25 PM /8:51 PM
[2016-11-14] MEDS: LORazepam 1 MG TAB PO PRN (22:10)
[2016-11-15] VITALS (7 sets, daily range): BP systolic 104–144; BP diastolic 60–76; PULSE 62–82; RESP 16–20; TEMP 97.4–98.8; O2SAT 92–96
[2016-11-15] MEDS: NITROGLYCERIN 2% OINT 1 GM PACKET TOPICAL SCH ×4 (06:25→23:18)
[2016-11-15 07:54] LABS: BASOPHIL # 0.1 TH/MM3 (0-0.2); BASOPHIL % 1.1 % (0.0-2.0); EOSINOPHIL # 0.3 TH/MM3 (0-0.4); EOSINOPHIL % 3.9 % (0.0-4.0); HEMATOCRIT 37.2 % (39.0-51.0); HEMO FLAGS DIFF FINAL; LYMPH % 38.1 % (9.0-44.0); MEAN CELL VOLUME 90.6 FL (80.0-100.0); MEAN CORPUSCULAR HEMOGLOBIN 30.8 PG (27.0-34.0); MONO % 7.1 % (0.0-8.0); NEUT % 49.8 % (16.0-70.0); PLATELET COUNT 219 TH/MM3 (150-450); RED CELL DISTRIBUTION WIDTH 13.5 % (11.6-17.2)
[2016-11-15 08:22] LABS: ANION GAP 5 MEQ/L (5-15); BICARBONATE 30.6 MEQ/L (21.0-32.0); BLOOD UREA NITROGEN 15 MG/DL (7-18); CHLORIDE 105 MEQ/L (98-107); CREATINE KINASE 1213 U/L (39-308); GLOMERULAR FILTRATION RATE 78 ML/MIN (>89); POTASSIUM 4.1 MEQ/L (3.5-5.1); SODIUM (NA) 141 MEQ/L (136-145)
[2016-11-15 08:35] LABS: CKMB 9.2 NG/ML (0.5-3.6)
[2016-11-15] MEDS: METOCLOPRAMIDE HCL 10 MG TAB PO SCH ×3 (08:36→16:43)
[2016-11-15] MEDS: PANTOPRAZOLE SOD 40 MG DELAYED RELEASE TAB PO SCH (08:37)
[2016-11-15] MEDS: ACETAMINOPHEN/HYDROcodone 325 MG/7.5 MG TAB PO PRN ×4 (08:37→23:19)
[2016-11-15] MEDS: SODIUM CHLORIDE 0.9% FLUSH 5 ML FLUSH IVF SCH ×2 (08:38→20:28)
[2016-11-15] MEDS: METOPROLOL TARTRATE 25 MG TAB PO SCH ×2 (08:43→20:29)
[2016-11-15] MEDS: COLESEVELAM HCL 625 MG TAB PO SCH ×3 (11:03→23:18)
[2016-11-15] MEDS: SODIUM CHLOR 0.9% 1000 ML INJ 1,000 ML IV SCH ×2 (11:05→23:19)
--- NOTE | 2016-11-15 14:23 | HHI.PR ---
Subjective Remarks Follow up for lower extremity weakness, chest heaviness. Patient seen and examined with Dr. Jones. The patient reports continued lower extremity weakness which he believes is getting worse. He is still able to ambulate the unit without difficulty but does report fatigue after ambulation. He reports continued shortness of breath and chest heaviness. Denies any dysphagia but does report losing some of his voice after talking for an extended period. Denies any other medical complaints at this time. Going for LP tomorrow. Objective Vitals Vital Signs Date Time Temp Pulse Resp B/P Pulse Ox O2 Delivery O2 Flow Rate FiO2 11/15/16 12:00 97.5 71 20 137/71 96 11/15/16 10:00 96 21 11/15/16 08:00 98.3 73 20 144/70 96 11/15/16 04:00 97.8 82 16 123/73 95 11/15/16 00:00 98.1 69 18 104/60 93 11/14/16 20:00 98.3 73 20 114/63 93 11/14/16 19:51 78 11/14/16 16:00 98.4 73 18 118/61 95 I/O 11/14/16 11/14/16 11/14/16 11/15/16 11/15/16 11/15/16 07:00 15:00 23:00 07:00 15:00 23:00 Intake Total 240 ml 960 ml 240 ml Balance 240 ml 960 ml 240 ml Intake Oral 240 ml 960 ml 240 ml IV Total 0 ml # Voids 1 4 1 # Bowel Movements 0 0 0 Result Diagram: 11/15/16 0700 11/15/16 0700 Imaging Last Impressions Chest X-Ray 11/11/16 1118 Signed Impressions: Service Date/Time: October 11:20 - CONCLUSION: Stable examination. Clips and wires suggest CABG. Maxwell Edmondson MD Thoracic Spine CT 11/11/16 0000 Signed Impressions: Service Date/Time: October 20:24 - CONCLUSION: Degenerative changes, otherwise negative for radiographically significant stenosis. Kevin Lindquist MD FACR Lumbar Spine CT 11/11/16 0000 Signed Impressions: Service Date/Time: October 20:24 - CONCLUSION: Degenerative changes and previous fixation as described above. Most significant stenosis at the L4-5 level. Kevin Lindquist MD FACR Cervical Spine CT 11/11/16 0000 Signed Impressions: Service Date/Time: October 20:16 - CONCLUSION: 1. Extensive degenerative changes as described above. 2. Moderate spinal stenosis at C6- C7 and C7-T1. Kevin Lindquist MD FACR Objective Remarks GENERAL: Well-nourished, well-developed pleasant male patient in NAD. SKIN: Warm and dry. No rash. HEENT: Normocephalic. Atraumatic. Pupils equal and round. Mucous membranes pink and moist. NECK: Supple. Trachea midline. CARDIOVASCULAR: Regular rate and rhythm. S1, S2 noted. No murmur appreciated. RESPIRATORY: No accessory muscle use. Clear to auscultation. Breath sounds equal bilaterally. GASTROINTESTINAL: Abdomen soft, non-tender, nondistended. Normoactive bowel sounds x4. MUSCULOSKELETAL: No obvious deformities. Extremities without clubbing, cyanosis , or edema. NEUROLOGICAL: Awake and alert. No obvious cranial nerve deficits. Motor grossly within normal limits. 5/5 muscle strength in bilateral upper extremities , 4/5 strength bilateral lower extremities. Normal speech. PSYCHIATRIC: Appropriate mood and affect; insight and judgment normal. Procedures None Medications and IVs Current Medications Medications (Trade) Dose Ordered Sig/Faviola Route Start Time Stop Time Status Last Admin (NS Flush) 2 ml UNSCH PRN IVF 11/11/16 14:15 (NS Flush) 2 ml BID IVF 11/11/16 21:00 11/15/16 08:38 (Tylenol) 500 mg Q4H PRN PO 11/11/16 14:15 ([place] 7.5-325 Mg) 1 tab Q4H PRN PO 11/11/16 14:15 11/15/16 12:27 (Zofran Inj) 4 mg Q6H PRN IV 11/11/16 14:15 (Narcan Inj) 0.4 mg UNSCH PRN IV 11/11/16 15:45 (Lioresal) 10 mg Q8HR PRN PO 11/11/16 16:00 (Ativan) 1 mg DAILY PRN PO 11/11/16 16:00 11/14/16 22:10 Patient Own Medication PT OWN MED: CONTINUOUS PRN OTHER 11/11/16 20:00 (Reglan) 5 mg TIDAC PO 11/11/16 17:00 11/15/16 11:03 (Protonix) 40 mg DAILY PO 11/12/16 09:00 11/15/16 08:37 (Pill Splitter) 1 ea UNSCH PRN OTHER 11/11/16 16:15 (Lopressor) 25 mg BID PO 11/12/16 21:00 11/15/16 08:43 (Welchol) 625 mg Q12H PO 11/14/16 12:00 11/15/16 11:03 Nitroglycerin 0.5 inch 0.5 inch Q6H TOPICAL 11/14/16 11:00 11/15/16 11:05 (NS 1000 ml Inj) 1,000 ml @ 84 mls/hr [id number] IV 11/14/16 12:00 11/15/16 11:05 A/P Problem List: (1) Chest pain ICD Code: R07.9 Status: Acute (2) Lower extremity weakness ICD Code: R29.898 Status: Acute (3) Hypertension ICD Code: I10 Status: Chronic (4) Rhabdomyolysis ICD Code: M62.82 Status: Acute (5) Hyperlipidemia ICD Code: E78.5 Status: Chronic Assessment and Plan 66-year-old male with history of CAD s/p CABG 3 vessels, hx of Guillain Shock 10years ago, who presented to the ED with complaint of chest pressure over the past week and episodes of significant lower extremity weakness. Chest pain/pressure/heaviness with hx of CAD s/p CABG 7yrs ago: Still having chest "heaviness". ACS ruled out with negative serial troponins x3 however CK remains elevated. Consult patient's kier hand Dr. Zuniga, may need cardiac catheterization. Aspirin on hold for LP. Continue BB, Imdur. O2 as needed. Started on nitro paste. Cardiology ordered sq Heparin, will continue, confirmed with IR ok to give prior to LP tomorrow. 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 CK trended up to 1606, Monitor CK level. 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 Consulted neurology, ordered LP for tomorrow 11/16, last received aspirin 325mg on 11/11. Neurosurgery consulted by neurologist, agrees with proceeding with LP. Rhabdomyolysis: CK elevated at 1606. Continue IV fluids. Monitor serum CK level as well as renal function. CK trending down, 1200 today. Hypertension: Continue metoprolol. Hyperlipidemia: Patient does not take statin secondary to adverse reactions in the past. Started on Welchol. DVT prophylaxis: teds/SCDs. SQ heparin for now. Discussed with RN and Dr. Jones. Attending Statement The exam, history, and the medical decision-making described in the above note were completed with the assistance of the mid-level provider. I reviewed and agree with the findings presented. I attest that I had a [id number] encounter with the patient on the same day, and personally performed and documented my assessment and findings in the medical record. Follow-up bilateral lower extremity weakness and chest pain. Still having bilateral lower extremity weakness but ambulating. No incontinence or numbness. Denies chest pain. Discussed with RN Regular rate and rhythm Lungs clear to auscultation Generalized weakness Chest pain with history of CAD. Plan for cardiac catheterization versus nuclear stress test Bilateral lower extremity weakness with history of GBS and lumbar degenerative disc disease. For lumbar puncture in the morning Problem Qualifiers (1) Chest pain: Qualified Code: R07.2 - Precordial pain Blanca Day PA-C November 15, 2016 14:23 Aly Jones MD November 15, 2016 18:19
[2016-11-15] MEDS ORDERED: HEPARIN SODIUM - SQ 10,000 UNITS/ML VIAL SQ ONE ×2 (16:00→22:00)
--- NOTE | 2016-11-15 17:22 | HHI.PR ---
Review/Management Diagnosis H/o GBS Recent onset LE weakness right > left Muscle cramps H/o cervical myelopathy, C6-7 spinal stenosis Lumbar spine degenerative disc disease, L4-5 Plan for LP tomorrow Diagnosis/Plan: Subjective Subjective Comments No acute events reported Active Medications Current Medications Medications (Trade) Dose Ordered Sig/Faviola Route Start Time Stop Time Status Last Admin (NS Flush) 2 ml UNSCH PRN IVF 11/11/16 14:15 (NS Flush) 2 ml BID IVF 11/11/16 21:00 11/15/16 08:38 (Tylenol) 500 mg Q4H PRN PO 11/11/16 14:15 ([place] 7.5-325 Mg) 1 tab Q4H PRN PO 11/11/16 14:15 11/15/16 16:42 (Zofran Inj) 4 mg Q6H PRN IV 11/11/16 14:15 (Narcan Inj) 0.4 mg UNSCH PRN IV 11/11/16 15:45 (Lioresal) 10 mg Q8HR PRN PO 11/11/16 16:00 (Ativan) 1 mg DAILY PRN PO 11/11/16 16:00 11/14/16 22:10 Patient Own Medication PT OWN MED: CONTINUOUS PRN OTHER 11/11/16 20:00 (Reglan) 5 mg TIDAC PO 11/11/16 17:00 11/15/16 16:43 (Protonix) 40 mg DAILY PO 11/12/16 09:00 11/15/16 08:37 (Pill Splitter) 1 ea UNSCH PRN OTHER 11/11/16 16:15 (Lopressor) 25 mg BID PO 11/12/16 21:00 11/15/16 08:43 (Welchol) 625 mg Q12H PO 11/14/16 12:00 11/15/16 11:03 Nitroglycerin 0.5 inch 0.5 inch Q6H TOPICAL 11/14/16 11:00 11/15/16 16:43 (NS 1000 ml Inj) 1,000 ml @ 84 mls/hr [id number] IV 11/14/16 12:00 11/15/16 11:05 (Heparin Inj) 5,000 units ONCE ONCE SQ 11/15/16 22:00 11/15/16 22:01 Allergies Allergies Coded Allergies Adhesives (Unverified Allergy, Severe, SKIN BREAKDOWN, 12/03/15) Contrast Media (Verified Allergy, Severe, Anaphylaxis, 12/03/15) Flu Vaccine (Verified Allergy, Severe, GUILLIAN BARRE, 12/03/15) Betadine (Verified Allergy, Unknown, 12/03/15) Exam I&O / VS 11/14/16 11/14/16 11/15/16 15:00 23:00 07:00 Intake Total 960 ml 240 ml Balance 960 ml 240 ml Intake Oral 960 ml 240 ml IV Total 0 ml # Voids 4 1 # Bowel Movements 0 0 Vital Signs Date Time Temp Pulse Resp B/P Pulse Ox O2 Delivery O2 Flow Rate FiO2 11/15/16 16:07 97.9 71 20 127/67 95 11/15/16 12:00 97.5 71 20 137/71 96 11/15/16 10:00 96 21 11/15/16 08:00 98.3 73 20 144/70 96 11/15/16 04:00 97.8 82 16 123/73 95 11/15/16 00:00 98.1 69 18 104/60 93 11/14/16 20:00 98.3 73 20 114/63 93 11/14/16 19:51 78 General: Alert and Oriented, No acute distress Eye: PERRL, Normal conjuctiva Respiratory: Lungs CTA Cardiology: Normal rate, No murmur Neurologic: Alert, Oriented, Normal sensory, CN II-XII intact, Other Psychiatric: Cooperative, Appropriate mood & affect Exam Comments alert, speech normal CN 2-12 normal MOTOR--5/5 BUE, 5/5 Bilateral iliopsoas, 4/5 bilateral hamstring, 5/5 bilateral tibialis anterior . He has spasticity in the right leg DTR--absent BUE and BLE, has babinski sign on left Objective Micro and Labs Laboratory Tests Test 11/15/16 07:00 White Blood Count 8.0 Red Blood Count 4.10 Hemoglobin 12.6 Hematocrit 37.2 Mean Corpuscular Volume 90.6 Mean Corpuscular Hemoglobin 30.8 Mean Corpuscular Hemoglobin 34.0 Concent Red Cell Distribution Width 13.5 Platelet Count 219 Mean Platelet Volume 8.6 Neutrophils (%) (Auto) 49.8 Lymphocytes (%) (Auto) 38.1 Monocytes (%) (Auto) 7.1 Eosinophils (%) (Auto) 3.9 Basophils (%) (Auto) 1.1 Neutrophils # (Auto) 4.0 Lymphocytes # (Auto) 3.0 Monocytes # (Auto) 0.6 Eosinophils # (Auto) 0.3 Basophils # (Auto) 0.1 CBC Comment DIFF FINAL Differential Comment Sodium Level 141 Potassium Level 4.1 Chloride Level 105 Carbon Dioxide Level 30.6 Anion Gap 5 Blood Urea Nitrogen 15 Creatinine 0.96 Estimat Glomerular Filtration 78 Rate Random Glucose 94 Calcium Level 8.3 Total Creatine Kinase 1213 Creatine Kinase MB 9.2 Creatine Kinase MB % 0.8 Troponin I LESS THAN 0.02 Ravi Alvarado PhD November 15, 2016 17:22
[2016-11-15 19:48] LABS: APTT (PATIENT) 24.5 SEC (24.3-30.1)
[2016-11-15] MEDS: LORazepam 1 MG TAB PO PRN (23:19)
[2016-11-16] VITALS (10 sets, daily range): BP systolic 130–169; BP diastolic 70–85; PULSE 64–99; RESP 16–20; TEMP 97.8–98.2; O2SAT 92–97
[2016-11-16] MEDS: NITROGLYCERIN 2% OINT 1 GM PACKET TOPICAL SCH ×4 (05:16→23:00)
[2016-11-16] MEDS: ACETAMINOPHEN/HYDROcodone 325 MG/7.5 MG TAB PO PRN ×4 (05:42→20:34)
[2016-11-16] MEDS: METOPROLOL TARTRATE 25 MG TAB PO SCH ×2 (08:02→20:37)
[2016-11-16] MEDS: METOCLOPRAMIDE HCL 10 MG TAB PO SCH ×3 (08:02→16:17)
[2016-11-16] MEDS: PANTOPRAZOLE SOD 40 MG DELAYED RELEASE TAB PO SCH (08:03)
[2016-11-16] MEDS: SODIUM CHLORIDE 0.9% FLUSH 5 ML FLUSH IVF SCH ×2 (08:03→20:33)
[2016-11-16 10:51] LABS: GROSS BLOOD TUBE #1 1+ (0); GROSS BLOOD TUBE #2 TRACE (0); GROSS BLOOD TUBE #3 TRACE (0); SUPERNATE COLOR TUBE #1 CLEAR (CLEAR); SUPERNATE COLOR TUBE #2 CLEAR (CLEAR); SUPERNATE COLOR TUBE #3 CLEAR (CLEAR); VOLUME TUBE # 1 3.3 ML; VOLUME TUBE # 3 2.3 ML; VOLUME TUBE # 4 2.2 ML; WBC TUBE #4 64 /MM3 (0-10)
[2016-11-16 10:52] LABS: CSF LYMPHOCYTES 89 %; CSF MONOCYTES 7 %; CSF NEUTROPHILS 4 %
[2016-11-16 10:57] LABS: GROSS BLOOD TUBE #4 TRACE (0); SUPERNATE COLOR TUBE #4 CLEAR (CLEAR)
--- NOTE | 2016-11-16 11:22 | RADRPT ---
EXAM DATE/TIME: 11/16/2016 09:32 [place] COMPARISON: No previous studies available for comparison. INDICATIONS : Patient is in need of a lumbar puncture for evaluation of CSF due to lower extremity weakness. MEDICAL HISTORY : History of Guillain-[place] syndrome, CAD, HTN, COPD, CHF, hyperlipidemia, cervical myelopathy, spinal stenosis, lumbar spine degenerative disc disease, irregular heartbeat. SURGICAL HISTORY : History of CABG, multiple neck and back surgeries, pain pump insertion, inguinal hernia repairs, appe ndectomy. ENCOUNTER: Initial ACUITY: 4 -6 days PAIN SCORE: 0/10 LUMBAR PUNCTURE TIME: 0932 hours FLUORO TIME: 2.2 minutes IMAGE SERIES: 0 ACCESS LEVEL: L2-3 FLUID: 10.5 cc of clear CSF was collected and sent to the laboratory for analysis. PROCEDURE : 1. Fluoroscopic guided lumbar puncture. The risks, benefits and alternatives to the procedure were explained and verbal and written consent w as obtained. The site was prepped in sterile fashion. Full sterile technique was used, including ca p, mask, sterile gloves and gown and a large sterile sheet. Hand hygiene and 2% chlorhexidine and/or betadine/alcohol prep was utilized per protocol for cutaneous antisepsis. The skin and subcutaneous tissues were infiltrated with local anesthetic solution. With fluoroscopic guidance the lumbar thecal sac was punctured at the level above. The fluid describ ed above was removed without difficulty. The patient tolerated the procedure well and there were no complications. CONCLUSION: Uncomplicated fluoroscopically guided lumbar puncture. Moe Colorado MD on November 16, 2016 at 11:20 Board Certified Radiologist. This report was verified electronically.
[2016-11-16] MEDS: COLESEVELAM HCL 625 MG TAB PO SCH (11:44)
[2016-11-16] MEDS: SODIUM CHLOR 0.9% 1000 ML INJ 1,000 ML IV SCH ×2 (12:02→23:00)
[2016-11-16 14:45] LABS: CKMB 7.7 NG/ML (0.5-3.6)
--- NOTE | 2016-11-16 14:57 | HHI.PR ---
Subjective Remarks Follow-up chest pressure and bilateral lower extremity weakness. States continues to have intermittent chest pressure and bilateral lower extremities weakness. No shortness of breath. Discussed with family and RN Objective Vitals Vital Signs Date Time Temp Pulse Resp B/P Pulse Ox O2 Delivery O2 Flow Rate FiO2 11/16/16 12:00 98.0 65 20 148/79 97 11/16/16 08:30 99 11/16/16 08:30 93 21 11/16/16 08:00 98.0 79 20 151/78 94 11/16/16 04:00 97.9 80 17 132/76 92 11/16/16 00:00 97.8 78 17 130/79 92 11/15/16 20:00 98.8 78 18 138/76 94 11/15/16 16:07 97.9 71 20 127/67 95 I/O 11/15/16 11/15/16 11/15/16 11/16/16 11/16/16 11/16/16 06:59 14:59 22:59 06:59 14:59 22:59 Intake Total 240 ml 289 ml 933 ml Balance 240 ml 289 ml 933 ml Intake Oral 240 ml IV Total 289 ml 933 ml # Voids 1 # Bowel Movements 0 Result Diagram: 11/15/16 0700 11/15/16 0700 Objective Remarks GENERAL: Well-nourished, well-developed pleasant male patient in [facility]. SKIN: Warm and dry. No rash. HEENT: Normocephalic. Atraumatic. Pupils equal and round. Mucous membranes pink and moist. NECK: Supple. Trachea midline. CARDIOVASCULAR: Regular rate and rhythm. S1, S2 noted. No murmur appreciated. RESPIRATORY: No accessory muscle use. Clear to auscultation. Breath sounds equal bilaterally. GASTROINTESTINAL: Abdomen soft, non-tender, nondistended. Normoactive bowel sounds x4. MUSCULOSKELETAL: No obvious deformities. Extremities without clubbing, cyanosis , or edema. NEUROLOGICAL: Awake and alert. No obvious cranial nerve deficits. Motor grossly within normal limits. 5/5 muscle strength in bilateral upper extremities , 4/5 strength bilateral lower extremities. Normal speech. PSYCHIATRIC: Appropriate mood and affect; insight and judgment normal. Procedures Lumbar puncture A/P Problem List: (1) Chest pain ICD Code: R07.9 Status: Acute (2) Lower extremity weakness ICD Code: R29.898 Status: Acute (3) Hypertension ICD Code: I10 Status: Chronic (4) Rhabdomyolysis ICD Code: M62.82 Status: Acute (5) Hyperlipidemia ICD Code: E78.5 Status: Chronic Assessment and Plan 66-year-old male with history of CAD s/p CABG 3 vessels, hx of Guillain [place] 10years ago, who presented to the ED with complaint of chest pressure over the past week and episodes of significant lower extremity weakness. Chest pain/pressure/heaviness with hx of CAD s/p CABG 7yrs ago: Still having chest "heaviness". ACS ruled out with negative serial troponins x3 however CK remains elevated. Consult patient's e commerce marketing manager Dr. Zuniga, may need cardiac catheterization. Aspirin on hold for LP. Continue BB, nitrate. O2 as needed. 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 CK trended up to 1606, Monitor CK level. 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 Consulted neurology, ordered LP for tomorrow 11/16, last received aspirin 325mg on 11/11. Neurosurgery consulted by neurologist, agrees with proceeding with LP. CSF studies indicate traumatic tap Rhabdomyolysis: CK elevated at 1606. Continue IV fluids. Monitor serum CK level as well as renal function. CK worse today we'll discontinue WelChol. PPI can also cause rhabdomyolysis. Repeat BMP and CK in the morning Hypertension: Continue metoprolol. Hyperlipidemia: Patient does not take statin secondary to adverse reactions in the past. WelChol on hold DVT prophylaxis: teds/SCDs. SQ heparin for now. Problem Qualifiers (1) Chest pain: Qualified Code: R07.2 - Precordial pain Aly Jones MD November 16, 2016 14:57
--- NOTE | 2016-11-16 15:36 | EKG ---
Date Performed: 11/15/2016 Time Performed: 06:23:38 PTAGE: 66 years EKG: Sinus rhythm . Ant/septal and lateral T wave changes are nonspecific Borderline ECG Compared to prior tracing no s ignificant change PREVIOUS TRACING : 11/14/2016 06.16 DOCTOR: Cate Zuniga Interpretating Date/Time 11/16/2016 15:34:30
--- NOTE | 2016-11-16 16:02 | HHI.PR ---
Review/Management Diagnosis There is a modest elevation in CSF protein and wbc which is out of proportion to the csf RBC count. 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 Diagnosis/Plan: Subjective Subjective Comments No acute events reported Tolerated LP well. Active Medications Current Medications Medications (Trade) Dose Ordered Sig/Faviola Route Start Time Stop Time Status Last Admin (NS Flush) 2 ml UNSCH PRN IVF 11/11/16 14:15 (NS Flush) 2 ml BID IVF 11/11/16 21:00 11/15/16 08:38 (Tylenol) 500 mg Q4H PRN PO 11/11/16 14:15 ([place] 7.5-325 Mg) 1 tab Q4H PRN PO 11/11/16 14:15 11/16/16 11:45 (Zofran Inj) 4 mg Q6H PRN IV 11/11/16 14:15 (Narcan Inj) 0.4 mg UNSCH PRN IV 11/11/16 15:45 (Lioresal) 10 mg Q8HR PRN PO 11/11/16 16:00 (Ativan) 1 mg DAILY PRN PO 11/11/16 16:00 11/15/16 23:19 Patient Own Medication PT OWN MED: CONTINUOUS PRN OTHER 11/11/16 20:00 (Reglan) 5 mg TIDAC PO 11/11/16 17:00 11/16/16 11:44 (Protonix) 40 mg DAILY PO 11/12/16 09:00 11/16/16 08:03 (Pill Splitter) 1 ea UNSCH PRN OTHER 11/11/16 16:15 (Lopressor) 25 mg BID PO 11/12/16 21:00 11/16/16 08:02 Nitroglycerin 0.5 inch 0.5 inch Q6H TOPICAL 11/14/16 11:00 11/16/16 11:44 (NS 1000 ml Inj) 1,000 ml @ 84 mls/hr [id number] IV 11/14/16 12:00 11/16/16 12:02 Allergies Allergies Coded Allergies Adhesives (Unverified Allergy, Severe, SKIN BREAKDOWN, 12/03/15) Contrast Media (Verified Allergy, Severe, Anaphylaxis, 12/03/15) Flu Vaccine (Verified Allergy, Severe, GUILLIAN BARRE, 12/03/15) Betadine (Verified Allergy, Unknown, 12/03/15) Exam I&O / VS 11/15/16 11/15/16 11/16/16 15:00 23:00 07:00 Intake Total 289 ml 933 ml Balance 289 ml 933 ml IV Total 289 ml 933 ml Vital Signs Date Time Temp Pulse Resp B/P Pulse Ox O2 Delivery O2 Flow Rate FiO2 11/16/16 12:00 98.0 65 20 148/79 97 11/16/16 08:30 99 11/16/16 08:30 93 21 11/16/16 08:00 98.0 79 20 151/78 94 11/16/16 04:00 97.9 80 17 132/76 92 11/16/16 00:00 97.8 78 17 130/79 92 11/15/16 20:00 98.8 78 18 138/76 94 11/15/16 16:07 97.9 71 20 127/67 95 General: Alert and Oriented, No acute distress Eye: PERRL, Normal conjuctiva Respiratory: Lungs CTA Cardiology: Normal rate, No murmur Neurologic: Alert, Oriented, Normal sensory, CN II-XII intact, Other Psychiatric: Cooperative, Appropriate mood & affect Exam Comments alert, speech normal CN 2-12 normal MOTOR--5/5 BUE, 5/5 Bilateral iliopsoas, 4/5 bilateral hamstring, 5/5 bilateral tibialis anterior . He has spasticity in the right leg DTR--absent BUE and BLE, has babinski sign on left Objective Micro and Labs Laboratory Tests Test 11/15/16 11/16/16 11/16/16 19:05 09:34 12:58 Activated Partial 24.5 Thromboplast Time CSF Volume (Tube 1) 3.3 CSF Supernatant Color (tube 1) CLEAR CSF Gross Blood (Tube 1) 1+ CSF Volume (Tube 2) 2.0 CSF Supernatant Color (tube 2) CLEAR CSF Gross Blood (Tube 2) TRACE CSF Volume (Tube 3) 2.3 CSF Supernatant Color (tube 3) CLEAR CSF Gross Blood (Tube 3) TRACE CSF Volume (Tube 4) 2.2 CSF Supernatant Color (tube 4) CLEAR CSF Gross Blood (Tube 4) TRACE CSF WBC (Tube 4) 64 CSF RBC (Tube 4) 2201 CSF Neutrophils 4 CSF Lymphocytes 89 CSF Monocytes 7 CSF Glucose 52 CSF Total Protein 60.0 Total Creatine Kinase 2002 Creatine Kinase MB 7.7 Creatine Kinase MB % 0.4 Ravi Alvarado PhD November 16, 2016 16:02
[2016-11-16] MEDS ORDERED: IMMUNE GLOBULIN IV SCH (17:15)
[2016-11-16] MEDS ORDERED: DIPHENHYDRAMINE HCL 50 MG/ML VIAL Reaction Med IV PUSH PRN (17:30)
[2016-11-16] MEDS ORDERED: EPINEPHRINE HCL (1:1000) 1 MG/ML AMP Reaction Med OTHER PRN (17:30)
[2016-11-16] MEDS: DIPHENHYDRAMINE HCL 25 MG CAP Pre-med PO SCH (18:47)
[2016-11-16] MEDS: ACETAMINOPHEN 325 MG TAB Pre-med PO SCH (18:48)
[2016-11-16] MEDS: NS 500 ML Pre-hydration IV SCH (19:00)
--- NOTE | 2016-11-16 19:34 | PD.CARD.PN ---
Subjective Subjective Remarks Has marked pressure in chest and leg discomfort identical to the prior G [place] activation. Offered cath he would like to hold off and see if the immunoglobulin works to help his breathing and chest tightness Objective Medications Administered Medications Medications (Trade) Dose Ordered Sig/Faviola Route PRN Reason Start Time Stop Time Status Last Admin Dose Admin IV Flush (NS Flush) 2 ml BID IVF 11/11/16 21:00 11/15/16 08:38 Acetaminophen/ Hydrocodone Bitart ([place] 7.5-325 Mg) 1 tab Q4H PRN PO PAIN SCALE 1 TO 10 11/11/16 14:15 11/16/16 16:17 Lorazepam (Ativan) 1 mg DAILY PRN PO ANXIETY 11/11/16 16:00 11/15/16 23:19 Metoclopramide HCl (Reglan) 5 mg TIDAC PO 11/11/16 17:00 11/16/16 16:17 Pantoprazole Sodium (Protonix) 40 mg DAILY PO 11/12/16 09:00 11/16/16 08:03 Metoprolol Tartrate (Lopressor) 25 mg BID PO 11/12/16 21:00 11/16/16 08:02 Nitroglycerin 0.5 inch 0.5 inch Q6H TOPICAL 11/14/16 11:00 11/16/16 16:17 Sodium Chloride (NS 1000 ml Inj) 1,000 ml @ 84 mls/hr [id number] IV 11/14/16 12:00 11/16/16 12:02 Acetaminophen (Tylenol) 650 mg Q24H PO 11/16/16 19:00 11/20/16 19:01 11/16/16 18:48 Diphenhydramine HCl (Benadryl) 25 mg Q24H PO 11/16/16 19:00 11/20/16 19:01 11/16/16 18:47 Vital Signs / I&O Vital Signs Date Time Temp Pulse Resp B/P Pulse Ox O2 Delivery O2 Flow Rate FiO2 11/16/16 17:55 97 21 11/16/16 16:00 98.2 76 20 169/81 97 11/16/16 12:00 98.0 65 20 148/79 97 11/16/16 08:30 99 11/16/16 08:30 93 21 11/16/16 08:00 98.0 79 20 151/78 94 11/16/16 04:00 97.9 80 17 132/76 92 11/16/16 00:00 97.8 78 17 130/79 92 11/15/16 20:00 98.8 78 18 138/76 94 I/O 11/15/16 11/15/16 11/15/16 11/16/16 11/16/16 11/16/16 06:59 14:59 22:59 06:59 14:59 22:59 Intake Total 240 ml 289 ml 933 ml Balance 240 ml 289 ml 933 ml Intake Oral 240 ml IV Total 289 ml 933 ml # Voids 1 # Bowel Movements 0 Physical Exam GENERAL: Well-nourished, well-developed patient in no apparent distress. SKIN: Warm and dry. NECK: JVD normal - less than or equal to 5 cm H20. CARDIOVASCULAR: Regular rate and rhythm without murmurs, gallops or rubs. RESPIRATORY: Normal breath sounds - equal bilaterally. No accessory muscle use. No wheezes, rales or rubs. PERIPHERY: No cyanosis or edema. Laboratory Laboratory Tests Test 11/16/16 11/16/16 09:34 12:58 CSF Volume (Tube 1) 3.3 ML CSF Supernatant Color (tube 1) CLEAR CSF Gross Blood (Tube 1) 1+ CSF Volume (Tube 2) 2.0 ML CSF Supernatant Color (tube 2) CLEAR CSF Gross Blood (Tube 2) TRACE CSF Volume (Tube 3) 2.3 ML CSF Supernatant Color (tube 3) CLEAR CSF Gross Blood (Tube 3) TRACE CSF Volume (Tube 4) 2.2 ML CSF Supernatant Color (tube 4) CLEAR CSF Gross Blood (Tube 4) TRACE CSF WBC (Tube 4) 64 /MM3 CSF RBC (Tube 4) 2201 /MM3 CSF Neutrophils 4 % CSF Lymphocytes 89 % CSF Monocytes 7 % CSF Glucose 52 MG/DL CSF Total Protein 60.0 MG/DL Total Creatine Kinase 2003 U/L Creatine Kinase MB 7.7 NG/ML Creatine Kinase MB % 0.4 % Assessment and Plan Assessment and Plan Will hold cath and see if immunoglobulin helps his symptoms as the csf is suggestive of need for immunoglobulin treatment. If not better consider cath. Pt and family feel this episode is very similar to prior GB episode and would like to hold off cath. Cate Zuniga MD November 16, 2016 19:34
[2016-11-16] MEDS: D5W as prime bag (IVIG as secondary) IV SCH (20:00)
[2016-11-16] MEDS: IMMUNE GLOBULIN INJ 30 GM in SYRINGE/BAG 1 EA IV SCH (20:30)
[2016-11-16] MEDS: LORazepam 1 MG TAB PO PRN (23:00)
[2016-11-17] VITALS (8 sets, daily range): BP systolic 137–149; BP diastolic 69–79; PULSE 70–90; RESP 16–18; TEMP 97.5–98.5; O2SAT 91–97
[2016-11-17] MEDS: NITROGLYCERIN 2% OINT 1 GM PACKET TOPICAL SCH ×4 (04:53→22:26)
[2016-11-17] MEDS: ACETAMINOPHEN/HYDROcodone 325 MG/7.5 MG TAB PO PRN ×5 (05:02→22:32)
[2016-11-17] MEDS: METOPROLOL TARTRATE 25 MG TAB PO SCH ×2 (08:17→20:38)
[2016-11-17] MEDS: PANTOPRAZOLE SOD 40 MG DELAYED RELEASE TAB PO SCH (08:17)
[2016-11-17] MEDS: METOCLOPRAMIDE HCL 10 MG TAB PO SCH ×3 (08:18→17:07)
[2016-11-17] MEDS: SODIUM CHLORIDE 0.9% FLUSH 5 ML FLUSH IVF SCH ×2 (08:20→20:37)
[2016-11-17 08:26] LABS: BICARBONATE 32.2 MEQ/L (21.0-32.0); MAGNESIUM 2.1 MG/DL (1.5-2.5); POTASSIUM 4.1 MEQ/L (3.5-5.1)
[2016-11-17 08:56] LABS: CKMB 6.7 NG/ML (0.5-3.6)
--- NOTE | 2016-11-17 11:11 | HHI.PR ---
Subjective Remarks Follow-up GBS. Improving strength after receiving first dose of IVIG last night. Seen with family. Discussed with RN Objective Vitals Vital Signs Date Time Temp Pulse Resp B/P Pulse Ox O2 Delivery O2 Flow Rate FiO2 11/17/16 08:30 74 11/17/16 08:00 97.8 76 18 141/73 94 11/17/16 04:15 97.5 70 16 149/79 91 11/16/16 23:18 97.9 64 16 136/70 92 11/16/16 20:12 98.2 74 16 144/85 95 11/16/16 20:00 68 11/16/16 17:55 97 21 11/16/16 16:00 98.2 76 20 169/81 97 11/16/16 12:00 98.0 65 20 148/79 97 I/O 11/16/16 11/16/16 11/16/16 11/17/16 11/17/16 11/17/16 07:00 15:00 23:00 07:00 15:00 23:00 Intake Total 933 ml 1518 ml 685 ml Output Total 1000 ml Balance 933 ml 1518 ml -315 ml Intake Oral 240 ml 360 ml IV Total 933 ml 1278 ml 325 ml Output Urine Total 1000 ml # Voids 7 # Bowel Movements 1 0 Result Diagram: 11/15/16 0700 11/17/16 0719 Imaging Last Impressions Lumbar Puncture Fluoroscopy 11/15/16 0700 Signed Impressions: Service Date/Time: Wednesday, November 16, 2016 09:32 - CONCLUSION: Uncomplicated fluoroscopically guided lumbar puncture. Moe Colorado MD Chest X-Ray 11/11/16 1118 Signed Impressions: Service Date/Time: October 11:20 - CONCLUSION: Stable examination. Clips and wires suggest CABG. Maxwell Edmondson MD Thoracic Spine CT 11/11/16 0000 Signed Impressions: Service Date/Time: October 20:24 - CONCLUSION: Degenerative changes, otherwise negative for radiographically significant stenosis. Kevin Lindquist MD FACR Lumbar Spine CT 11/11/16 0000 Signed Impressions: Service Date/Time: October 20:24 - CONCLUSION: Degenerative changes and previous fixation as described above. Most significant stenosis at the L4-5 level. Kevin Lindquist MD FACR Cervical Spine CT 11/11/16 0000 Signed Impressions: Service Date/Time: October 20:16 - CONCLUSION: 1. Extensive degenerative changes as described above. 2. Moderate spinal stenosis at C6- C7 and C7-T1. Kevin Lindquist MD FACR Objective Remarks GENERAL: Well-nourished, well-developed pleasant male patient in [facility]. SKIN: Warm and dry. No rash. HEENT: Normocephalic. Atraumatic. Pupils equal and round. Mucous membranes pink and moist. NECK: Supple. Trachea midline. CARDIOVASCULAR: Regular rate and rhythm. S1, S2 noted. No murmur appreciated. RESPIRATORY: No accessory muscle use. Clear to auscultation. Breath sounds equal bilaterally. GASTROINTESTINAL: Abdomen soft, non-tender, nondistended. Normoactive bowel sounds x4. MUSCULOSKELETAL: No obvious deformities. Extremities without clubbing, cyanosis , or edema. NEUROLOGICAL: Awake and alert. No obvious cranial nerve deficits. Motor grossly within normal limits. 5/5 muscle strength in bilateral upper extremities , 4/5 strength bilateral lower extremities. Normal speech. PSYCHIATRIC: Appropriate mood and affect; insight and judgment normal. 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 Chest pain/pressure/heaviness with hx of CAD s/p CABG 7yrs ago: Still having chest "heaviness". ACS ruled out with negative serial troponins x3 however CK remains elevated. Consult patient's lead project manager Dr. Zuniga, may need cardiac catheterization. Restart aspirin status post appendectomy Continue BB, nitrate. O2 as needed. 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 CK trended up to 1606, Monitor CK level. 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 Neurology started IVIG for 5 days. Monitor for response Rhabdomyolysis: CK elevated at 1606. Continue IV fluids. Monitor serum CK level as well as renal function. CK improve today off WelChol. PPI can also cause rhabdomyolysis. Repeat BMP and CK in the morning Hypertension: Continue metoprolol. Hyperlipidemia: Patient does not take statin secondary to adverse reactions in the past. WelChol on hold DVT prophylaxis: teds/SCDs. SQ heparin for now. Problem Qualifiers (1) Chest pain: Qualified Code: R07.2 - Precordial pain Aly Jones MD November 17, 2016 11:11
[2016-11-17] MEDS: SODIUM CHLOR 0.9% 1000 ML INJ 1,000 ML IV SCH ×2 (12:17→22:29)
--- NOTE | 2016-11-17 15:09 | PD.CARD.PN ---
Subjective Subjective Remarks Better, much better, sob better tightness better following immunoglobulin shot. Objective Medications Laboratory Tests Test 11/15/16 11/16/16 11/16/16 11/17/16 07:00 09:34 12:58 07:19 Red Blood Count 4.10 MIL/MM3 (4.50-5.90) Hemoglobin 12.6 GM/DL (13.0-17.0) Hematocrit 37.2 % (39.0-51.0) Estimat Glomerular Filtration 78 ML/MIN (>89) 82 ML/MIN (>89) Rate Calcium Level 8.3 MG/DL (8.5-10.1) Total Creatine Kinase 1213 U/L 2002 U/L 1840 U/L (39-308) (39-308) (39-308) Creatine Kinase MB 9.2 NG/ML 7.7 NG/ML 6.7 NG/ML (0.5-3.6) (0.5-3.6) (0.5-3.6) Troponin I LESS THAN 0.02 NG/ML (0.02-0.05) CSF Gross Blood (Tube 1) 1+ (0) CSF Gross Blood (Tube 2) TRACE (0) CSF Gross Blood (Tube 3) TRACE (0) CSF Gross Blood (Tube 4) TRACE (0) CSF WBC (Tube 4) 64 /MM3 (0-10) CSF RBC (Tube 4) 2201 /MM3 (NONE) CSF Total Protein 60.0 MG/DL (15.0-45.0) Carbon Dioxide Level 32.2 MEQ/L (21.0-32.0) Administered Medications Medications (Trade) Dose Ordered Sig/[place] Route PRN Reason Start Time Stop Time Status Last Admin Dose Admin IV Flush (NS Flush) 2 ml BID IVF 11/11/16 21:00 11/15/16 08:38 Acetaminophen/ Hydrocodone Bitart ([place] 7.5-325 Mg) 1 tab Q4H PRN PO PAIN SCALE 1 TO 10 11/11/16 14:15 11/17/16 14:33 Lorazepam (Ativan) 1 mg DAILY PRN PO ANXIETY 11/11/16 16:00 11/16/16 23:00 Metoclopramide HCl (Reglan) 5 mg TIDAC PO 11/11/16 17:00 11/17/16 12:12 Pantoprazole Sodium (Protonix) 40 mg DAILY PO 11/12/16 09:00 11/17/16 08:17 Metoprolol Tartrate (Lopressor) 25 mg BID PO 11/12/16 21:00 11/17/16 08:17 Nitroglycerin 0.5 inch 0.5 inch Q6H TOPICAL 11/14/16 11:00 11/17/16 12:12 Sodium Chloride 1,000 ml @ 84 mls/hr [id number] IV 11/14/16 12:00 11/17/16 12:17 Immune Globulin/ Syringe / Bag (Privigen Inj/ Syringe/Bag) 300 ml @ 23.34 mls/ hr Q24H IV 11/16/16 20:00 11/21/16 08:52 11/16/16 20:30 Acetaminophen (Tylenol) 650 mg Q24H PO 11/16/16 19:00 11/20/16 19:01 11/16/16 18:48 Diphenhydramine HCl 25 mg 25 mg Q24H PO 11/16/16 19:00 11/20/16 19:01 11/16/16 18:47 Dextrose (D5W 500 ml Inj) 500 ml @ 30 mls/hr Q24H IV 11/16/16 20:00 11/21/16 12:39 11/16/16 20:00 Vital Signs / I&O Vital Signs Date Time Temp Pulse Resp B/P Pulse Ox O2 Delivery O2 Flow Rate FiO2 11/17/16 13:42 97 21 11/17/16 12:00 98.5 80 18 142/69 96 11/17/16 08:30 74 11/17/16 08:00 97.8 76 18 141/73 94 11/17/16 04:15 97.5 70 16 149/79 91 11/16/16 23:18 97.9 64 16 136/70 92 11/16/16 20:12 98.2 74 16 144/85 95 11/16/16 20:00 68 11/16/16 17:55 97 21 11/16/16 16:00 98.2 76 20 169/81 97 I/O 11/16/16 11/16/16 11/16/16 11/17/16 11/17/16 11/17/16 07:00 15:00 23:00 07:00 15:00 23:00 Intake Total 933 ml 1518 ml 685 ml Output Total 1000 ml Balance 933 ml 1518 ml -315 ml Intake Oral 240 ml 360 ml IV Total 933 ml 1278 ml 325 ml Output Urine Total 1000 ml # Voids 7 # Bowel Movements 1 0 Physical Exam GENERAL: breathing better SKIN: Warm and dry. NECK: JVD normal - less than or equal to 5 cm H20. CARDIOVASCULAR: Regular rate and rhythm without murmurs, gallops or rubs. RESPIRATORY: Normal breath sounds - equal bilaterally. No accessory muscle use. No wheezes, rales or rubs. PERIPHERY: No cyanosis or edema. 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 will follow as needed next week . Cate Zuniga MD November 17, 2016 15:09
--- NOTE | 2016-11-17 15:56 | HHI.PR ---
Review/Management Diagnosis There is a modest elevation in CSF protein and wbc which is out of proportion to the csf RBC count. 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 Diagnosis/Plan: Subjective Subjective Comments No acute events reported received first ivig and tolerated it well. He feels stronger in legs. Active Medications Current Medications Medications (Trade) Dose Ordered Sig/Faviola Route Start Time Stop Time Status Last Admin (NS Flush) 2 ml UNSCH PRN IVF 11/11/16 14:15 (NS Flush) 2 ml BID IVF 11/11/16 21:00 11/15/16 08:38 (Tylenol) 500 mg Q4H PRN PO 11/11/16 14:15 ([place] 7.5-325 Mg) 1 tab Q4H PRN PO 11/11/16 14:15 11/17/16 14:33 (Zofran Inj) 4 mg Q6H PRN IV 11/11/16 14:15 (Narcan Inj) 0.4 mg UNSCH PRN IV 11/11/16 15:45 (Lioresal) 10 mg Q8HR PRN PO 11/11/16 16:00 (Ativan) 1 mg DAILY PRN PO 11/11/16 16:00 11/16/16 23:00 Patient Own Medication PT OWN MED: CONTINUOUS PRN OTHER 11/11/16 20:00 (Reglan) 5 mg TIDAC PO 11/11/16 17:00 11/17/16 12:12 (Protonix) 40 mg DAILY PO 11/12/16 09:00 11/17/16 08:17 (Pill Splitter) 1 ea UNSCH PRN OTHER 11/11/16 16:15 (Lopressor) 25 mg BID PO 11/12/16 21:00 11/17/16 08:17 Nitroglycerin 0.5 inch 0.5 inch Q6H TOPICAL 11/14/16 11:00 11/17/16 12:12 Sodium Chloride 1,000 ml @ 84 mls/hr [id number] IV 11/14/16 12:00 11/17/16 12:17 Sodium Chloride 500 ml @ 500 mls/hr Q24H IV 11/16/16 19:00 11/20/16 19:59 (Privigen Inj/ Syringe/Bag) 300 ml @ 23.34 mls/ hr Q24H IV 11/16/16 20:00 11/21/16 08:52 11/16/16 20:30 (Tylenol) 650 mg Q24H PO 11/16/16 19:00 11/20/16 19:01 11/16/16 18:48 Diphenhydramine HCl 25 mg 25 mg Q24H PO 11/16/16 19:00 11/20/16 19:01 11/16/16 18:47 (D5W 500 ml Inj) 500 ml @ 30 mls/hr Q24H IV 11/16/16 20:00 11/21/16 12:39 11/16/16 20:00 (Benadryl Inj) 50 mg UNSCH PRN IV PUSH 11/16/16 17:30 11/21/16 12:00 (Adrenalin (1:1000) Inj) 0.3 mg Q10M PRN OTHER 11/16/16 17:30 11/21/16 12:00 (Ecotrin Ec) 325 mg DAILY PO 11/18/16 09:00 Allergies Allergies Coded Allergies Adhesives (Unverified Allergy, Severe, SKIN BREAKDOWN, 12/03/15) Contrast Media (Verified Allergy, Severe, Anaphylaxis, 12/03/15) Flu Vaccine (Verified Allergy, Severe, GUILLIAN BARRE, 12/03/15) Betadine (Verified Allergy, Unknown, 12/03/15) Exam I&O / VS 11/16/16 11/16/16 11/17/16 15:00 23:00 07:00 Intake Total 1518 ml 685 ml Output Total 1000 ml Balance 1518 ml -315 ml Intake Oral 240 ml 360 ml IV Total 1278 ml 325 ml Output Urine Total 1000 ml # Voids 7 # Bowel Movements 1 0 Vital Signs Date Time Temp Pulse Resp B/P Pulse Ox O2 Delivery O2 Flow Rate FiO2 11/17/16 13:42 97 21 11/17/16 12:00 98.5 80 18 142/69 96 11/17/16 08:30 74 11/17/16 08:00 97.8 76 18 141/73 94 11/17/16 04:15 97.5 70 16 149/79 91 11/16/16 23:18 97.9 64 16 136/70 92 11/16/16 20:12 98.2 74 16 144/85 95 11/16/16 20:00 68 11/16/16 17:55 97 21 11/16/16 16:00 98.2 76 20 169/81 97 General: Alert and Oriented, No acute distress Eye: PERRL, Normal conjuctiva Respiratory: Lungs CTA Cardiology: Normal rate, No murmur Neurologic: Alert, Oriented, Normal sensory, CN II-XII intact, Other Psychiatric: Cooperative, Appropriate mood & affect Exam Comments alert, speech normal CN 2-12 normal MOTOR--5/5 BUE, 5/5 Bilateral iliopsoas, 5/5 bilateral hamstring, 5/5 bilateral tibialis anterior . DTR--absent BUE and BLE, has babinski sign on left Objective Micro and Labs Laboratory Tests Test 11/17/16 07:19 Sodium Level 142 Potassium Level 4.1 Chloride Level 105 Carbon Dioxide Level 32.2 Anion Gap 5 Blood Urea Nitrogen 14 Creatinine 0.92 Estimat Glomerular Filtration 82 Rate Random Glucose 92 Calcium Level 8.6 Magnesium Level 2.1 Total Creatine Kinase 1840 Creatine Kinase MB 6.7 Creatine Kinase MB % 0.4 Ravi Alvarado PhD November 17, 2016 15:56
[2016-11-17] MEDS: DIPHENHYDRAMINE HCL 25 MG CAP Pre-med PO SCH (18:38)
[2016-11-17] MEDS: ACETAMINOPHEN 325 MG TAB Pre-med PO SCH (18:38)
[2016-11-17] MEDS: NS 500 ML Pre-hydration IV SCH (19:00)
[2016-11-17] MEDS: D5W as prime bag (IVIG as secondary) IV SCH (20:00)
[2016-11-17] MEDS: IMMUNE GLOBULIN INJ 30 GM in SYRINGE/BAG 1 EA IV SCH (20:37)
[2016-11-17] MEDS: LORazepam 1 MG TAB PO PRN (22:26)
[2016-11-18] VITALS (8 sets, daily range): BP systolic 118–164; BP diastolic 57–85; PULSE 61–88; RESP 16–20; TEMP 97.2–98.3; O2SAT 92–97
[2016-11-18] MEDS: ACETAMINOPHEN/HYDROcodone 325 MG/7.5 MG TAB PO PRN ×5 (02:37→21:15)
[2016-11-18] MEDS: NITROGLYCERIN 2% OINT 1 GM PACKET TOPICAL SCH ×4 (06:44→22:11)
[2016-11-18] MEDS: ASPIRIN EC 325 MG TABEC PO SCH (08:55)
[2016-11-18] MEDS: METOPROLOL TARTRATE 25 MG TAB PO SCH ×2 (08:56→21:15)
[2016-11-18] MEDS: METOCLOPRAMIDE HCL 10 MG TAB PO SCH ×3 (08:56→17:32)
[2016-11-18] MEDS: PANTOPRAZOLE SOD 40 MG DELAYED RELEASE TAB PO SCH (08:56)
[2016-11-18] MEDS: SODIUM CHLORIDE 0.9% FLUSH 5 ML FLUSH IVF SCH ×2 (08:58→21:00)
--- NOTE | 2016-11-18 10:50 | HHI.PR ---
Subjective Remarks Follow-up GBS. States he is improving each day looking forward for his discharge. Intermittent chest discomfort. Wants to wait for completion of IVIG before making a decision regarding cardiac catheterization. Currently on room air. Seen with sister. Discussed with RN Objective Vitals Vital Signs Date Time Temp Pulse Resp B/P Pulse Ox O2 Delivery O2 Flow Rate FiO2 11/18/16 08:00 98.2 69 18 158/82 92 11/18/16 07:43 18 11/18/16 04:00 97.2 68 20 135/77 92 11/18/16 00:00 97.8 73 16 118/57 92 11/17/16 20:47 Room Air 11/17/16 20:03 90 11/17/16 20:00 97.9 80 18 144/78 93 11/17/16 17:51 21 11/17/16 16:00 98.2 71 18 137/77 93 11/17/16 13:42 97 21 11/17/16 12:00 98.5 80 18 142/69 96 I/O 11/17/16 11/17/16 11/17/16 11/18/16 11/18/16 11/18/16 07:00 15:00 23:00 07:00 15:00 23:00 Intake Total 685 ml 720 ml 240 ml 0 ml Output Total 1000 ml 750 ml 250 ml Balance -315 ml -30 ml 240 ml -250 ml Intake Oral 360 ml 720 ml 240 ml 0 ml IV Total 325 ml Output Urine Total 1000 ml 750 ml 250 ml # Voids 0 1 # Bowel Movements 0 0 0 0 Result Diagram: 11/15/16 0700 11/17/16 0719 Imaging Last Impressions Lumbar Puncture Fluoroscopy 11/15/16 0700 Signed Impressions: Service Date/Time: Wednesday, November 16, 2016 09:32 - CONCLUSION: Uncomplicated fluoroscopically guided lumbar puncture. Moe [place] MD Chest X-Ray 11/11/16 1118 Signed Impressions: Service Date/Time: October 11:20 - CONCLUSION: Stable examination. Clips and wires suggest CABG. Maxwell Edmondson MD Thoracic Spine CT 11/11/16 0000 Signed Impressions: Service Date/Time: October 20:24 - CONCLUSION: Degenerative changes, otherwise negative for radiographically significant stenosis. Kevin Lindquist MD FACR Lumbar Spine CT 11/11/16 0000 Signed Impressions: Service Date/Time: October 20:24 - CONCLUSION: Degenerative changes and previous fixation as described above. Most significant stenosis at the L4-5 level. Kevin Lindquist MD FACR Cervical Spine CT 11/11/16 0000 Signed Impressions: Service Date/Time: October 20:16 - CONCLUSION: 1. Extensive degenerative changes as described above. 2. Moderate spinal stenosis at C6- C7 and C7-T1. Kevin Lindquist MD FACR Objective Remarks GENERAL: Well-nourished, well-developed pleasant male patient in NAD. SKIN: Warm and dry. No rash. HEENT: Normocephalic. Atraumatic. Pupils equal and round. Mucous membranes pink and moist. NECK: Supple. Trachea midline. CARDIOVASCULAR: Regular rate and rhythm. S1, S2 noted. No murmur appreciated. RESPIRATORY: No accessory muscle use. Clear to auscultation. Breath sounds equal bilaterally. GASTROINTESTINAL: Abdomen soft, non-tender, nondistended. Normoactive bowel sounds x4. MUSCULOSKELETAL: No obvious deformities. Extremities without clubbing, cyanosis , or edema. NEUROLOGICAL: Awake and alert. No obvious cranial nerve deficits. Motor grossly within normal limits. 5/5 muscle strength in bilateral upper extremities , 4/5 strength bilateral lower extremities. Normal speech. Nonfocal PSYCHIATRIC: Appropriate mood and affect; insight and judgment normal. 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 Chest pain/pressure/heaviness with hx of CAD s/p CABG 7yrs ago: Still having chest "heaviness". ACS ruled out with negative serial troponins x3 however CK remains elevated. 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 Zuniga, may need cardiac catheterization. Restarted aspirin status post lumbar puncture Continue BB, nitrate. O2 as needed. 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 CK trended up to 1606, Monitor CK level. 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 Neurology started IVIG for 5 days last dose November 20. Monitor for response Rhabdomyolysis: CK elevated at 1606. Continue IV fluids. Monitor serum CK level as well as renal function. Off WelChol. PPI can also cause rhabdomyolysis. Repeat BMP and CK in the morning Hypertension: Continue metoprolol. Hyperlipidemia: Patient does not take statin secondary to adverse reactions in the past. WelChol on hold DVT prophylaxis: teds/SCDs. Patient ambulatory Discharge Planning Discharge after last dose of IVIG 11/20/16 Problem Qualifiers (1) Chest pain: Qualified Code: R07.2 - Precordial pain Aly Jones MD November 18, 2016 10:50
[2016-11-18] MEDS: SODIUM CHLOR 0.9% 1000 ML INJ 1,000 ML IV SCH ×2 (11:50→22:13)
--- NOTE | 2016-11-18 14:06 | PD.CARD.PN ---
Subjective Subjective Remarks Feels better with immunoglobulin Objective Medications Administered Medications Medications (Trade) Dose Ordered Sig/Faviola Route PRN Reason Start Time Stop Time Status Last Admin Dose Admin IV Flush (NS Flush) 2 ml BID IVF 11/11/16 21:00 11/18/16 08:58 Acetaminophen/ Hydrocodone Bitart ([place] 7.5-325 Mg) 1 tab Q4H PRN PO PAIN SCALE 1 TO 10 11/11/16 14:15 11/18/16 11:43 Lorazepam (Ativan) 1 mg DAILY PRN PO ANXIETY 11/11/16 16:00 11/17/16 22:26 Metoclopramide HCl (Reglan) 5 mg TIDAC PO 11/11/16 17:00 11/18/16 11:44 Pantoprazole Sodium (Protonix) 40 mg DAILY PO 11/12/16 09:00 11/18/16 08:56 Metoprolol Tartrate (Lopressor) 25 mg BID PO 11/12/16 21:00 11/18/16 08:56 Nitroglycerin 0.5 inch 0.5 inch Q6H TOPICAL 11/14/16 11:00 11/18/16 11:00 Sodium Chloride 1,000 ml @ 84 mls/hr [id number] IV 11/14/16 12:00 11/18/16 11:50 Sodium Chloride (NS 500 ml Inj) 500 ml @ 500 mls/hr Q24H IV 11/16/16 19:00 11/20/16 19:59 11/17/16 19:00 Acetaminophen (Tylenol) 650 mg Q24H PO 11/16/16 19:00 11/20/16 19:01 11/17/16 18:38 Diphenhydramine HCl 25 mg 25 mg Q24H PO 11/16/16 19:00 11/20/16 19:01 11/17/16 18:38 Dextrose (D5W 500 ml Inj) 500 ml @ 30 mls/hr Q24H IV 11/16/16 20:00 11/21/16 12:39 11/17/16 20:00 Aspirin (Ecotrin Ec) 325 mg DAILY PO 11/18/16 09:00 11/18/16 08:55 Vital Signs / I&O Vital Signs Date Time Temp Pulse Resp B/P Pulse Ox O2 Delivery O2 Flow Rate FiO2 11/18/16 12:00 98.3 88 18 149/68 97 11/18/16 08:00 98.2 69 18 158/82 92 11/18/16 07:43 18 11/18/16 04:00 97.2 68 20 135/77 92 11/18/16 00:00 97.8 73 16 118/57 92 11/17/16 20:47 Room Air 11/17/16 20:03 90 11/17/16 20:00 97.9 80 18 144/78 93 11/17/16 17:51 21 11/17/16 16:00 98.2 71 18 137/77 93 I/O 11/17/16 11/17/16 11/17/16 11/18/16 11/18/16 11/18/16 07:00 15:00 23:00 07:00 15:00 23:00 Intake Total 685 ml 720 ml 240 ml 0 ml Output Total 1000 ml 750 ml 250 ml Balance -315 ml -30 ml 240 ml -250 ml Intake Oral 360 ml 720 ml 240 ml 0 ml IV Total 325 ml Output Urine Total 1000 ml 750 ml 250 ml # Voids 0 1 # Bowel Movements 0 0 0 0 Physical Exam GENERAL:Feels much better on therapy for GB SKIN: Warm and dry. NECK: JVD normal - less than or equal to 5 cm H20. CARDIOVASCULAR: Regular rate and rhythm without murmurs, gallops or rubs. RESPIRATORY: Normal breath sounds - equal bilaterally. No accessory muscle use. No wheezes, rales or rubs. PERIPHERY: No cyanosis or edema. 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 Laboratory Laboratory Tests Test 11/16/16 11/16/16 11/17/16 09:34 12:58 07:19 CSF Gross Blood (Tube 1) 1+ (0) CSF Gross Blood (Tube 2) TRACE (0) CSF Gross Blood (Tube 3) TRACE (0) CSF Gross Blood (Tube 4) TRACE (0) CSF WBC (Tube 4) 64 /MM3 (0-10) CSF RBC (Tube 4) 2201 /MM3 (NONE) CSF Total Protein 60.0 MG/DL (15.0-45.0) Total Creatine Kinase 2003 U/L 1840 U/L (39-308) (39-308) Creatine Kinase MB 7.7 NG/ML 6.7 NG/ML (0.5-3.6) (0.5-3.6) Carbon Dioxide Level 32.2 MEQ/L (21.0-32.0) Estimat Glomerular Filtration 82 ML/MIN (>89) Rate Assessment and Plan Assessment and Plan Overall stable cv, doing better Will sign off and see Cate Francois MD November 18, 2016 14:06
[2016-11-18] MEDS: NS 500 ML Pre-hydration IV SCH (15:00)
[2016-11-18] MEDS: ACETAMINOPHEN 325 MG TAB Pre-med PO SCH (15:00)
[2016-11-18] MEDS: DIPHENHYDRAMINE HCL 25 MG CAP Pre-med PO SCH (15:00)
[2016-11-18] MEDS: D5W as prime bag (IVIG as secondary) IV SCH ×2 (16:00→16:32)
[2016-11-18] MEDS ORDERED: IMMUNE GLOBULIN INJ 30 GM in SYRINGE/BAG 1 EA IV ONE (16:00)
--- NOTE | 2016-11-18 20:44 | HHI.PR ---
Review/Management Diagnosis There is a modest elevation in CSF protein and wbc which is out of proportion to the csf RBC count. 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 Diagnosis/Plan: Subjective Subjective Comments No acute events reported day 2 ivig Active Medications Current Medications Medications (Trade) Dose Ordered Sig/Faviola Route Start Time Stop Time Status Last Admin (NS Flush) 2 ml UNSCH PRN IVF 11/11/16 14:15 (NS Flush) 2 ml BID IVF 11/11/16 21:00 11/18/16 08:58 (Tylenol) 500 mg Q4H PRN PO 11/11/16 14:15 ([place] 7.5-325 Mg) 1 tab Q4H PRN PO 11/11/16 14:15 11/18/16 17:00 (Zofran Inj) 4 mg Q6H PRN IV 11/11/16 14:15 (Narcan Inj) 0.4 mg UNSCH PRN IV 11/11/16 15:45 (Lioresal) 10 mg Q8HR PRN PO 11/11/16 16:00 (Ativan) 1 mg DAILY PRN PO 11/11/16 16:00 11/17/16 22:26 Patient Own Medication PT OWN MED: CONTINUOUS PRN OTHER 11/11/16 20:00 (Reglan) 5 mg TIDAC PO 11/11/16 17:00 11/18/16 17:32 (Protonix) 40 mg DAILY PO 11/12/16 09:00 11/18/16 08:56 (Pill Splitter) 1 ea UNSCH PRN OTHER 11/11/16 16:15 (Lopressor) 25 mg BID PO 11/12/16 21:00 11/18/16 08:56 Nitroglycerin 0.5 inch 0.5 inch Q6H TOPICAL 11/14/16 11:00 11/18/16 17:32 Sodium Chloride 1,000 ml @ 84 mls/hr [id number] IV 11/14/16 12:00 11/18/16 11:50 (NS 500 ml Inj) 500 ml @ 500 mls/hr Q24H IV 11/16/16 19:00 11/20/16 19:59 11/18/16 15:00 (Tylenol) 650 mg Q24H PO 11/16/16 19:00 11/20/16 19:01 11/18/16 15:00 Diphenhydramine HCl 25 mg 25 mg Q24H PO 11/16/16 19:00 11/20/16 19:01 11/18/16 15:00 (D5W 500 ml Inj) 500 ml @ 30 mls/hr Q24H IV 11/16/16 20:00 11/21/16 12:39 11/18/16 16:32 (Benadryl Inj) 50 mg UNSCH PRN IV PUSH 11/16/16 17:30 11/21/16 12:00 (Adrenalin (1:1000) Inj) 0.3 mg Q10M PRN OTHER 11/16/16 17:30 11/21/16 12:00 Aspirin 325 mg 325 mg DAILY PO 11/18/16 09:00 11/18/16 08:55 Immune Globulin 30 gm/Syringe / Bag 300 ml @ 23.76 mls/ hr ONCE ONCE IV 11/18/16 16:00 11/19/16 04:37 11/18/16 16:21 Immune Globulin 30 gm/Syringe / Bag 300 ml @ 23.76 mls/ hr ONCE ONCE IV 11/19/16 12:00 11/20/16 00:37 (Privigen Inj/ Syringe/Bag) 300 ml @ 23.76 mls/ hr ONCE ONCE IV 11/20/16 08:00 11/20/16 20:37 Allergies Allergies Coded Allergies Adhesives (Unverified Allergy, Severe, SKIN BREAKDOWN, 12/03/15) Contrast Media (Verified Allergy, Severe, Anaphylaxis, 12/03/15) Flu Vaccine (Verified Allergy, Severe, GUILLIAN BARRE, 12/03/15) Betadine (Verified Allergy, Unknown, 12/03/15) Exam I&O / VS 11/17/16 11/17/16 11/18/16 15:00 23:00 07:00 Intake Total 720 ml 240 ml 0 ml Output Total 750 ml 250 ml Balance -30 ml 240 ml -250 ml Intake Oral 720 ml 240 ml 0 ml Output Urine Total 750 ml 250 ml # Voids 0 1 # Bowel Movements 0 0 0 Vital Signs Date Time Temp Pulse Resp B/P Pulse Ox O2 Delivery O2 Flow Rate FiO2 11/18/16 20:15 Room Air 11/18/16 20:00 98.3 71 18 155/85 96 11/18/16 18:42 20 11/18/16 16:00 98.0 67 18 164/79 93 11/18/16 12:00 98.3 88 18 149/68 97 11/18/16 08:00 98.2 69 18 158/82 92 11/18/16 07:15 93 Room Air 11/18/16 04:00 97.2 68 20 135/77 92 11/18/16 00:00 97.8 73 16 118/57 92 11/17/16 20:47 Room Air General: Alert and Oriented, No acute distress Eye: PERRL, Normal conjuctiva Respiratory: Lungs CTA Cardiology: Normal rate, No murmur Neurologic: Alert, Oriented, Normal sensory, CN II-XII intact, Other Psychiatric: Cooperative, Appropriate mood & affect Exam Comments alert, speech normal CN 2-12 normal MOTOR--5/5 BUE, 5/5 Bilateral iliopsoas, 5/5 bilateral hamstring, 5/5 bilateral tibialis anterior . DTR--absent BUE and BLE, has babinski sign on left Ravi Alvarado PhD November 18, 2016 20:44
[2016-11-18] MEDS: LORazepam 1 MG TAB PO PRN (22:11)
[2016-11-19] VITALS: BP 108/71; PULSE 73; RESP 18; TEMP 98; O2SAT 94
[2016-11-19] MEDS: ACETAMINOPHEN/HYDROcodone 325 MG/7.5 MG TAB PO PRN ×4 (03:41→20:08)
[2016-11-19 04:00] VITALS: BP 150/79; PULSE 72; RESP 20; TEMP 98.4; O2SAT 92
[2016-11-19] MEDS: NITROGLYCERIN 2% OINT 1 GM PACKET TOPICAL SCH ×4 (06:18→22:18)
[2016-11-19 07:36] LABS: BICARBONATE 31.7 MEQ/L (21.0-32.0); MAGNESIUM 1.8 MG/DL (1.5-2.5); POTASSIUM 4.1 MEQ/L (3.5-5.1)
[2016-11-19 08:00] VITALS: BP 173/89; PULSE 73; PULSE 75; RESP 18; TEMP 98.2; O2SAT 92
[2016-11-19] MEDS: METOCLOPRAMIDE HCL 10 MG TAB PO SCH ×3 (08:28→18:00)
[2016-11-19] MEDS: ASPIRIN EC 325 MG TABEC PO SCH (08:28)
[2016-11-19] MEDS: METOPROLOL TARTRATE 25 MG TAB PO SCH ×2 (08:28→20:02)
[2016-11-19] MEDS: PANTOPRAZOLE SOD 40 MG DELAYED RELEASE TAB PO SCH (08:28)
[2016-11-19] MEDS: SODIUM CHLORIDE 0.9% FLUSH 5 ML FLUSH IVF SCH ×2 (08:36→20:01)
[2016-11-19 08:47] LABS: CKMB 6.3 NG/ML (0.5-3.6)
[2016-11-19] MEDS ORDERED: DIPHENHYDRAMINE HCL 25 MG CAP Pre-med PO SCH (11:00)
[2016-11-19] MEDS ORDERED: ACETAMINOPHEN 325 MG TAB Pre-med PO SCH (11:30)
[2016-11-19] MEDS: SODIUM CHLOR 0.9% 1000 ML INJ 1,000 ML IV SCH ×2 (11:51→22:19)
[2016-11-19 12:00] VITALS: BP 166/82; PULSE 72; RESP 18; TEMP 97.8; O2SAT 94
[2016-11-19] MEDS ORDERED: IMMUNE GLOBULIN INJ 30 GM in SYRINGE/BAG 1 EA IV ONE (12:00)
[2016-11-19] MEDS: NS 500 ML Pre-hydration IV SCH (12:00)
[2016-11-19 16:00] VITALS: BP 147/80; PULSE 79; RESP 18; TEMP 98.8; O2SAT 92
--- NOTE | 2016-11-19 18:06 | HHI.PR ---
Subjective Remarks doing well Objective Vital Signs Date Time Temp Pulse Resp B/P Pulse Ox O2 Delivery O2 Flow Rate FiO2 11/19/16 16:00 98.8 79 18 147/80 92 11/19/16 12:00 97.8 72 18 166/82 94 11/19/16 09:33 Room Air 11/19/16 08:00 75 11/19/16 08:00 98.2 73 18 173/89 92 11/19/16 04:00 98.4 72 20 150/79 92 11/19/16 00:00 98.0 73 18 108/71 94 11/18/16 20:44 93 21 11/18/16 20:16 61 11/18/16 20:15 Room Air 11/18/16 20:00 98.3 71 18 155/85 96 11/18/16 18:42 20 I/O 11/18/16 11/18/16 11/18/16 11/19/16 11/19/16 11/19/16 07:00 15:00 23:00 07:00 15:00 23:00 Intake Total 0 ml 720 ml 2357 ml 180 ml 960 ml 582 ml Output Total 250 ml 375 ml 400 ml Balance -250 ml 720 ml 2357 ml -195 ml 560 ml 582 ml Intake Oral 0 ml 720 ml 480 ml 180 ml 960 ml IV Total 1877 ml 582 ml Output Urine Total 250 ml 375 ml 400 ml # Voids 1 3 5 1 # Bowel Movements 0 1 1 0 1 Result Diagram: 11/15/16 0700 11/19/16 0644 Objective Remarks awke alert voice strong 5/5 bue and ble no reflexes Assessment and Plan Assessment and Plan imp gbs? day 4 ivig today can dc after 5th dose tomorrow and fu dr whtimore next week by phone on tuesday Moe Loya MD November 19, 2016 18:06
[2016-11-19 20:00] VITALS: BP 134/74; PULSE 72; RESP 18; TEMP 98.2; O2SAT 93
[2016-11-19] MEDS: D5W as prime bag (IVIG as secondary) IV SCH (20:00)
[2016-11-19] MEDS: LORazepam 1 MG TAB PO PRN (22:14)
--- NOTE | 2016-11-19 23:58 | HHI.PR ---
Subjective Remarks Patient seen the morning of 11/19. Patient continues on IVIG. Last dose tomorrow. Reports he is feeling better every day. Objective Vital Signs Date Time Temp Pulse Resp B/P Pulse Ox O2 Delivery O2 Flow Rate FiO2 11/19/16 21:30 16 11/19/16 20:05 96 Room Air 11/19/16 20:00 98.2 72 18 134/74 93 11/19/16 16:00 98.8 79 18 147/80 92 11/19/16 16:00 Room Air 11/19/16 12:00 Room Air 11/19/16 12:00 97.8 72 18 166/82 94 11/19/16 09:33 Room Air 11/19/16 08:00 75 11/19/16 08:00 98.2 73 18 173/89 92 11/19/16 04:00 98.4 72 20 150/79 92 11/19/16 00:00 98.0 73 18 108/71 94 I/O 11/18/16 11/18/16 11/18/16 11/19/16 11/19/16 11/19/16 07:00 15:00 23:00 07:00 15:00 23:00 Intake Total 0 ml 720 ml 2357 ml 180 ml 960 ml 582 ml Output Total 250 ml 375 ml 400 ml Balance -250 ml 720 ml 2357 ml -195 ml 560 ml 582 ml Intake Oral 0 ml 720 ml 480 ml 180 ml 960 ml IV Total 1877 ml 582 ml Output Urine Total 250 ml 375 ml 400 ml # Voids 1 3 5 1 # Bowel Movements 0 1 1 0 1 Result Diagram: 11/15/16 0700 11/19/16 0644 Objective Remarks GENERAL: patient sitting up in chair. Appears comfortable. Alert and oriented 3. SKIN: Warm and dry. HEAD: Normocephalic. EYES: No scleral icterus. No injection or drainage. NECK: Supple, trachea midline. No JVD. CARDIOVASCULAR: Regular rate and rhythm without murmurs, gallops, or rubs. RESPIRATORY: Breath sounds equal bilaterally. No accessory muscle use. GASTROINTESTINAL: Abdomen soft, non-tender, nondistended. MUSCULOSKELETAL: No cyanosis, or edema. BACK: Nontender without obvious deformity. No CVA tenderness. 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 //Chest pain/pressure/heaviness with hx of CAD s/p CABG 7yrs ago: Still having chest "heaviness". ACS ruled out with negative serial troponins x3 however CK remains elevated. 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 Restarted aspirin status post lumbar puncture Continue BB, nitrate. O2 as needed. 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 Patient reports chest pain is improving. Continue on aspirin. 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 CK trended up to 1606, Monitor CK level. 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 Neurology started IVIG for 5 days last dose November 20. Monitor for response -11/19. Appears improving. Continue to monitor. //Rhabdomyolysis: CK elevated at 1606. Continue IV fluids. Monitor serum CK level as well as renal function. Off WelChol. PPI is unlikely cause of rhabdomyolysis. -11/19. CK improved 1000. Follow-Up As Outpatient with Neurology. //Hypertension: Continue metoprolol. //Hyperlipidemia: Patient does not take statin secondary to adverse reactions in the past. WelChol on hold //DVT prophylaxis: teds/SCDs. Patient ambulatory Discharge Planning discharge tomorrow after last dose of IVIG Ceasar Esteves MD November 19, 2016 23:58
[2016-11-20] VITALS: BP 146/70; PULSE 71; RESP 18; TEMP 98.7; O2SAT 93
[2016-11-20] MEDS: ACETAMINOPHEN/HYDROcodone 325 MG/7.5 MG TAB PO PRN ×2 (03:57→10:00)
[2016-11-20 04:00] VITALS: BP 147/97; PULSE 98; RESP 20; TEMP 98.4; O2SAT 93
[2016-11-20] MEDS: NITROGLYCERIN 2% OINT 1 GM PACKET TOPICAL SCH ×2 (04:13→12:26)
[2016-11-20 04:22] VITALS: PULSE 73
[2016-11-20] MEDS ORDERED: DIPHENHYDRAMINE HCL 25 MG CAP Pre-med PO SCH (07:00)
[2016-11-20] MEDS ORDERED: ACETAMINOPHEN 325 MG TAB Pre-med PO SCH (07:00)
[2016-11-20] MEDS ORDERED: IMMUNE GLOBULIN INJ 30 GM in SYRINGE/BAG 1 EA IV ONE (08:00)
[2016-11-20 08:02] VITALS: O2SAT 93
[2016-11-20 08:07] VITALS: BP 175/89; PULSE 79; RESP 18; TEMP 98.9; O2SAT 94
[2016-11-20] MEDS: SODIUM CHLORIDE 0.9% FLUSH 5 ML FLUSH IVF SCH (09:00)
[2016-11-20] MEDS: PANTOPRAZOLE SOD 40 MG DELAYED RELEASE TAB PO SCH (09:03)
[2016-11-20] MEDS: METOCLOPRAMIDE HCL 10 MG TAB PO SCH ×2 (09:03→12:26)
[2016-11-20] MEDS: ASPIRIN EC 325 MG TABEC PO SCH (09:03)
[2016-11-20] MEDS: METOPROLOL TARTRATE 25 MG TAB PO SCH (09:03)
--- NOTE | 2016-11-20 10:25 | HHI.PR ---
Subjective Remarks doing well Objective Vital Signs Date Time Temp Pulse Resp B/P Pulse Ox O2 Delivery O2 Flow Rate FiO2 11/20/16 08:07 98.9 79 18 175/89 94 11/20/16 05:13 18 11/20/16 04:22 73 11/20/16 04:00 98.4 98 20 147/97 93 11/20/16 00:00 98.7 71 18 146/70 93 11/19/16 20:05 96 Room Air 11/19/16 20:00 98.2 72 18 134/74 93 11/19/16 16:00 98.8 79 18 147/80 92 11/19/16 16:00 Room Air 11/19/16 12:00 Room Air 11/19/16 12:00 97.8 72 18 166/82 94 I/O 11/19/16 11/19/16 11/19/16 11/20/16 11/20/16 11/20/16 07:00 15:00 23:00 07:00 15:00 23:00 Intake Total 180 ml 960 ml 972 ml 590 ml Output Total 375 ml 400 ml 400 ml Balance -195 ml 560 ml 972 ml 190 ml Intake Oral 180 ml 960 ml 240 ml 240 ml IV Total 732 ml 350 ml Output Urine Total 375 ml 400 ml 400 ml # Voids 1 1 2 # Bowel Movements 0 1 0 0 Result Diagram: 11/19/16 0644 Objective Remarks awke alert voice strong 10/29 bue and ble stands w/o arms nl gait can stand on toes Assessment and Plan Assessment and Plan imp gbs? day 5 ivig today can dc later today after ivig in and fu dr whitmore next week by phone on tuesday Moe Loya MD November 20, 2016 10:25
[2016-11-20 12:09] VITALS: BP_SYST 103; BP_SYST 134; BP_DIAS 62; BP_DIAS 70; PULSE 70; RESP 18; TEMP 98.5; O2SAT 95; O2SAT 97
[2016-11-20] MEDS ORDERED: ASPI325T33 PO (14:08)
--- NOTE | 2016-11-25 07:20 | HHI.DS ---
Discharge Summary Admission Date November 11, 2016 at 13:32 Discharge Date: November 20, 2016 Admitting Diagnosis chest pain (1) Chest pain ICD Code: R07.9 (2) Lower extremity weakness ICD Code: R29.898 (3) Hypertension ICD Code: I10 (4) Rhabdomyolysis ICD Code: M62.82 (5) Hyperlipidemia ICD Code: E78.5 Procedures Lumbar puncture Brief History - From Admission The patient is a 66-year-old male with history of coronary artery disease and prior CABG 3 vessels who presented to the emergency department with complaint of chest pressure over the past week. He also states that he has been having episodes of significant lower extremity weakness. These have been occurring more frequently over the past few days. He reports that with chest pressure and lower extremity weakness, he has had dyspnea and diaphoretic episodes. He does not have chest pain currently. He reports intermittent shortness of breath, worse with exertion. He has a history of Guillain-Cuello syndrome, which was diagnosed about 5 years ago. Imaging Last Impressions Lumbar Puncture Fluoroscopy 11/15/16 0700 Signed Impressions: Service Date/Time: Wednesday, November 16, 2016 09:32 - CONCLUSION: Uncomplicated fluoroscopically guided lumbar puncture. Moe Colorado MD Chest X-Ray 11/11/16 1118 Signed Impressions: Service Date/Time: October 11:20 - CONCLUSION: Stable examination. Clips and wires suggest CABG. Maxwell Edmondson MD Thoracic Spine CT 11/11/16 0000 Signed Impressions: Service Date/Time: October 20:24 - CONCLUSION: Degenerative changes, otherwise negative for radiographically significant stenosis. Kevin Lindquist MD FAC[facility] Lumbar Spine CT 11/11/16 0000 Signed Impressions: Service Date/Time: October 20:24 - CONCLUSION: Degenerative changes and previous fixation as described above. Most significant stenosis at the L4-5 level. Kevin Lindquist MD [facility] Cervical Spine CT 11/11/16 0000 Signed Impressions: Service Date/Time: October 20:16 - CONCLUSION: 1. Extensive degenerative changes as described above. 2. Moderate spinal stenosis at C6- C7 and C7-T1. Kevin Lindquist MD FACR PE at Discharge GENERAL: patient sitting up in chair. Appears comfortable. Alert and oriented 3.no change on exam from Day prior. SKIN: Warm and dry. HEAD: Normocephalic. EYES: No scleral icterus. No injection or drainage. NECK: Supple, trachea midline. No JVD. CARDIOVASCULAR: Regular rate and rhythm without murmurs, gallops, or rubs. RESPIRATORY: Breath sounds equal bilaterally. No accessory muscle use. GASTROINTESTINAL: Abdomen soft, non-tender, nondistended. MUSCULOSKELETAL: No cyanosis, or edema. BACK: Nontender without obvious deformity. No CVA tenderness. Pt update on day of discharge patient feeling well. no complaints today. Hospital Course 66-year-old male with history of CAD s/p CABG 3 vessels, hx of Guillain [place] 10years ago, who presented to the ED with complaint of chest pressure over the past week and episodes of significant lower extremity weakness. //Chest pain/pressure/heaviness with hx of CAD s/p CABG 7yrs ago: Still having chest "heaviness". ACS ruled out with negative serial troponins x3 however CK remains elevated. Consult patient's clock assembler Dr. Zuniga, may need cardiac catheterization. Restarted aspirin status post lumbar puncture Continue BB, nitrate. O2 as needed. 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 Patient reports chest pain is improving. Continue on aspirin. -11/20. Chest pain much improved. Cardiology has signed off. Likely secondary to [place] Cu[place] syndrome/rhabdomyolysis. //Lower extremity weakness: Uncertain etiology, concern for recurrence of Guillain [place] Syndrome. CK trended up to 1606, Monitor CK level. 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 Neurology started IVIG for 5 days last dose November 20. Monitor for response -11/19. Appears improving. Continue to monitor. -11/20. Patient says he continues to improve. We'll need to follow-up with neurology as outpatient. //Rhabdomyolysis: CK elevated at 1606. Continue IV fluids. Monitor serum CK level as well as renal function. Off WelChol. PPI is unlikely cause of rhabdomyolysis. -11/19. CK improved 1000. Follow-Up As Outpatient with Neurology. -11/20. Follow-up with neurology as outpatient. //Hypertension: Continue metoprolol. //Hyperlipidemia: Patient does not take statin secondary to adverse reactions in the past. WelChol on hold //DVT prophylaxis: teds/SCDs. Patient ambulatory Pt Condition on Discharge: Good Discharge Disposition: Discharge Home Discharge Time: <= 30 minutes Discharge Instructions DIET: Follow Instructions for: Heart Healthy Diet Activities you can perform: Regular-No Restrictions Follow up Referrals: Cardiology - 2 Weeks with Cate Zuniga MD PCP Follow-up - 2-3 Days with Ravi Alvarado PhD MD New Medications: Aspirin DR (Aspirin EC) 325 Mg Tabdr 325 MG PO DAILY heart Days 30 TAB Continued Medications: Baclofen (Baclofen) 10 Mg Tab 10 MG PO Q8HR PRN MUSCLE SPASM Ref 0 TAB Lorazepam (Lorazepam) 1 Mg Tab 1 MG PO DAILY PRN ANXIETY Ref 0 TAB Metoclopramide (Reglan) 5 Mg Tab 5 MG PO TIDAC Ref 0 TAB Metoprolol Tartrate (Metoprolol Tartrate) 25 Mg Tab 25 MG PO DAILY #30 Ref 0 TAB Morphine PF Inj (Infumorph 200 Inj) 10 Mg/Ml Inj 0.75 MG EPIDURAL CONTINUOUS PRN PAIN SCALE 1 TO 10 Omeprazole (Omeprazole) 40 Mg Cap 40 MG PO DAILY #30 Ref 0 CAP Oxycodone (Oxycodone) 10 Mg Tab 10 MG PO Q6H PRN PAIN Ref 0 TAB Ceasar Esteves MD Nov 25, 2016 07:20 Ceasar Esteves MD Nov 25, 2016 07:20
== END 2016-11-20 15:35 | disposition home or self-care (01) | DRG 95 ==
LOC: NEPC 10:48 → OBSVTOIN 13:32 → NEDA 13:32 → NEPGCP 14:51 → N04A 11-13 11:22
PROVIDERS: ADMIT Family Medicine; ATTEND Internal Medicine
PROC: 009U3ZX Drainage of Spinal Canal, Percutaneous Approach, Diagnostic (ICD-10-PCS; principal; 2016-11-16)
PROC: 30233S1 Transfusion of Nonautologous Globulin into Peripheral Vein, Percutaneous Approach (ICD-10-PCS; 2016-11-16)
DX: G61.0 Guillain-Barre syndrome (principal); M62.82 Rhabdomyolysis; R07.89 Other chest pain; I25.10 Atherosclerotic heart disease of native coronary artery without angina pectoris; I10 Essential (primary) hypertension; E78.5 Hyperlipidemia, unspecified; M51.36 Other intervertebral disc degeneration, lumbar region; G89.29 Other chronic pain; Z95.1 Presence of aortocoronary bypass graft; Z87.891 Personal history of nicotine dependence; Z91.041 Radiographic dye allergy status; Z88.7 Allergy status to serum and vaccine
CPT/HCPCS: 62270; 71010; 72125; 72128; 72131; 76937; 77003; 80048; 80053; 82550; 82552; 82945; 83735; 84157; 84443; 84484; 85025; 85610; 85652; 85730; 86038; 89051; 93005; 95819; J1459; J1644; J7030; J7040; J7060

== ENCOUNTER 2017-03-10 16:29 | Inpatient (IN) | payer MEDICARE ==
[~2017-03-10] VITALS: Ht 177.8 cm; Wt 78.0 kg
[~2017-03-10 16:29] MED LIST changes: -ALBU1AER INH; +ASPI325T33 PO; -FENT25DI T-DERMAL; -LORA0.5T PO; +LORA1TAB12 PO; -METO25 PO; +METO25TA3 PO; -NITR.4 SL; +OXYC-395 PO; -PERC10TA27 PO; +REGL5TAB PO; +[UNRECOGNIZED DRUG - CODE] EPIDURAL
[2017-03-10 16:31] VITALS: BP 132/78; PULSE 98; RESP 20; TEMP 97.7; O2SAT 93
[2017-03-10] MEDS ORDERED: ASPIRIN 325 MG TAB PO ONE (17:00)
[2017-03-10] MEDS ORDERED: SODIUM CHLORIDE 0.9% FLUSH 10 ML FLUSH IVF PRN (17:00)
--- NOTE | 2017-03-10 17:19 | RADRPT ---
EXAM DATE/TIME: 03/10/2017 17:04 [facility] COMPARISON: CHEST SINGLE AP, November 11, 2016, 11:20. INDICATIONS : Chest pain. MEDICAL HISTORY : Chronic obstructive pulmonary disease. SURGICAL HISTORY : CABG. ENCOUNTER: Initial ACUITY: 4 - 6 days PAIN SCORE: 5/10 LOCATION: Bilateral chest FINDINGS: A single view of the chest demonstrates the lungs to be symmetrically aerated without evidence of mas s, infiltrate or effusion other than the stable nodule in the right upper lobe. The cardiomediastina l contours are unremarkable. Osseous structures are intact. CONCLUSION: Stable nodule in the right upper lobe. Clips and wires suggest CABG. Maxwell Edmondson MD on March 10, 2017 at 17:16 Board Certified Radiologist. This report was verified electronically.
[2017-03-10 17:31] LABS: BASOPHIL # 0.1 TH/MM3 (0-0.2); BASOPHIL % 1.1 % (0.0-2.0); EOSINOPHIL # 0.1 TH/MM3 (0-0.4); EOSINOPHIL % 1.2 % (0.0-4.0); HEMATOCRIT 38.3 % (39.0-51.0); HEMO FLAGS DIFF FINAL; LYMPH % 33.1 % (9.0-44.0); LYMPHOCYTE # 3.6 TH/MM3 (1.0-4.8); MEAN CELL VOLUME 93.8 FL (80.0-100.0); MEAN CORPUSCULAR HEMOGLOBIN 32.1 PG (27.0-34.0); MEAN CORPUSCULAR HGB CONC 34.2 % (32.0-36.0); MONO % 9.7 % (0.0-8.0); NEUT % 54.9 % (16.0-70.0); PLATELET COUNT 229 TH/MM3 (150-450); RED BLOOD COUNT 4.08 MIL/MM3 (4.50-5.90); RED CELL DISTRIBUTION WIDTH 13.4 % (11.6-17.2); WHITE BLOOD COUNT 10.9 TH/MM3 (4.0-11.0)
[2017-03-10 17:38] LABS: APTT (PATIENT) 24.5 SEC (24.3-30.1); INTERNATIONAL NORMALIZED RATIO 1.1 RATIO
[2017-03-10 17:54] LABS: BICARBONATE 28.6 MEQ/L (21.0-32.0); MAGNESIUM 2.2 MG/DL (1.5-2.5); POTASSIUM 4.4 MEQ/L (3.5-5.1)
[2017-03-10 18:20] LABS: CKMB 11.9 NG/ML (0.5-3.6)
[2017-03-10] MEDS ORDERED: METOPROLOL TARTRATE 5 MG/5 ML VIAL SLOW IVP SCH (18:30)
[2017-03-10] MEDS ORDERED: HEPARIN SODIUM - IV 10,000 UNITS/10 ML VIAL IV ONE (18:30)
[2017-03-10] MEDS: HEPARIN-D5W 25,000 U/250 ML 250 ML IV PRN (18:44)
[2017-03-10] MEDS ORDERED: LACTULOSE SYRUP 20 GM/30 ML CUP PO PRN (18:45)
[2017-03-10] MEDS ORDERED: SODIUM CHLORIDE 0.9% FLUSH 10 ML FLUSH IV FLUSH PRN (18:45)
[2017-03-10] MEDS ORDERED: ACETAMINOPHEN 325 MG TAB PO PRN (18:45)
[2017-03-10] MEDS ORDERED: NALOXONE HCL 0.4 MG/ML AMP IV PUSH PRN (18:45)
[2017-03-10] MEDS ORDERED: ONDANSETRON HCL 4 MG/2 ML VIAL IVP PRN (18:45)
[2017-03-10] MEDS ORDERED: SENNOSIDES 8.6 MG TAB PO PRN (18:45)
[2017-03-10] MEDS ORDERED: BISACODYL 10 MG SUPP RECTAL PRN (18:45)
[2017-03-10] MEDS ORDERED: MAGNESIUM HYDROXIDE SUSP 30 ML CUP PO PRN (18:45)
--- NOTE | 2017-03-10 19:01 | PD ---
HPI Chief Complaint: Cardiac Complaint Time Seen by Provider: 16:46 Travel History International Travel<30 days: No Contact w/Intl Traveler<30days: No Traveled to known affect area: No History of Present Illness HPI Patient is 66 years old. He has a history of coronary artery bypass surgery. He reports shortness of breath and fatigue for the past 4 days or so. Even walking about 30 feet or so because of fairly severe fatigue. He denies any change in his normal routine per se. He's had no fever or cough. His notes that he has been diaphoretic at home. He has been spending most the day in bed for the past few days. PFSH Past Medical History Arthritis: Yes Asthma: No Autoimmune Disease: No Blood Disorders: No Anxiety: No Depression: No Heart Rhythm Problems: Yes (REPORTS TAKING METOPROLOL) Cancer: No Cardiac Catheterization: No Cardiovascular Problems: Yes Chest Pain: Yes Congestive Heart Failure: Yes COPD: Yes Cerebrovascular Accident: No Coronary Artery Disease: Yes Diabetes: No Diminished Hearing: No Endocrine: No Gastrointestinal Disorders: Yes (REFLUX) GERD: Yes Genitourinary: No Hepatitis: No Hiatal Hernia: Yes Hypertension: Yes Immune Disorder: No Implanted Vascular Access Dvce: Yes Kidney Stones: No Medical other: Yes (HX GUILLIAN BARRE SYNDROME) Musculoskeletal: Yes (ARTHRITIS, DDD) Neurologic: Yes (NEUROPATHY LEFT FOOT/LEG/ARM/HAND) Reproductive: No Respiratory: Yes (COPD) Immunizations Current: No Migraines: No Renal Failure: No Seizures: No Sleep Apnea: No Thyroid Disease: No Triglycerides - High: Yes Ulcer: No PNEUMOCCOCAL Vaccine (Year): 2 Past Surgical History Abdominal Surgery: Yes (SARAH. ING. REP., (RIGHT SIDE X2), APPY) AICD: No Appendectomy: Yes Arteriovenous Shunt: No Body Medical Devices: LUMBAR HARDWARE Coronary Artery Bypass Graft: Yes Ear Surgery: No Endocrine Surgery: No Eye Surgery: No Genitourinary Surgery: No Gynecologic Surgery: No Insulin Pump: No Joint Replacement: No Neurologic Surgery: Yes Oral Surgery: No Pacemaker: No Thoracic Surgery: Yes (CABG (3 VESSEL)) Other Surgery: Yes (hernia x2) Social History Alcohol Use: No Tobacco Use: No Substance Use: No Allergies-Medications (Allergen,Severity, Reaction): Coded Allergies: Influenza Virus Vaccines (Unverified Allergy, Severe, GUILLIAN BARRE, 02/08) adhesive (Unverified Allergy, Severe, SKIN BREAKDOWN, 02/08/17) PAPER TAPE [place] diatrizoate meglumine (Unverified Allergy, Severe, Anaphylaxis, 02/08/17) gadobenic acid (Unverified Allergy, Severe, Anaphylaxis, 02/08/17) gadodiamide (Unverified Allergy, Severe, Anaphylaxis, 02/08/17) gadoteridol (Unverified Allergy, Severe, Anaphylaxis, 02/08/17) iodixanol (Unverified Allergy, Severe, Anaphylaxis, 02/08/17) iohexol (Unverified Allergy, Severe, Anaphylaxis, 02/08/17) povidone-iodine (Unverified Allergy, Unknown, 02/08/17) Pt reacted to contrast dye request no Betadine Reported Meds & Prescriptions Reported Meds & Active Scripts Active Aspirin EC (Aspirin) 325 Mg Tabdr 325 Mg PO DAILY 30 Days Reported Infumorph 200 Inj (Morphine Sulfate) 10 Mg/Ml Inj 0.75 Mg EPIDURAL CONTINUOUS PRN Lorazepam 1 Mg Tab 1 Mg PO DAILY PRN Omeprazole 40 Mg Cap 40 Mg PO DAILY Oxycodone (Oxycodone HCl) 10 Mg Tab 10 Mg PO Q6H PRN Reglan (Metoclopramide HCl) 5 Mg Tab 5 Mg PO TIDAC Baclofen 10 Mg Tab 10 Mg PO Q8HR PRN Metoprolol Tartrate 25 Mg Tab 25 Mg PO BID Review of Systems Except as stated in HPI: all other systems reviewed are Neg General / Constitutional: No: Fever Physical Exam Narrative GENERAL: 66 yo M, WNWD, NAD, speaking sentences SKIN: Warm and dry. HEAD: Atraumatic. Normocephalic. EYES: Pupils equal and round. No scleral icterus. No injection or drainage. ENT: No nasal bleeding or discharge. Mucous membranes pink and moist. NECK: Trachea midline. No JVD. CARDIOVASCULAR: Regular rate and rhythm. RESPIRATORY: No accessory muscle use. Clear to auscultation. Breath sounds equal bilaterally. GASTROINTESTINAL: Abdomen soft, non-tender, nondistended. Hepatic and splenic margins not palpable. MUSCULOSKELETAL: Extremities without clubbing, cyanosis, or edema. No obvious deformities. NEUROLOGICAL: Awake and alert. No obvious cranial nerve deficits. Motor grossly within normal limits. Five out of 5 muscle strength in the arms and legs. Normal speech. PSYCHIATRIC: Appropriate mood and affect; insight and judgment normal. Data Data Last Documented VS Vital Signs Date Time Temp Pulse Resp B/P (MAP) Pulse Ox O2 Delivery O2 Flow Rate FiO2 03/10/17 16:31 97.7 98 20 132/78 (96) 93 Room Air VS reviewed Orders Orders Basic Metabolic Panel (Bmp) (03/10/17 16:54) Ckmb (Isoenzyme) Profile (03/10/17 16:54) Complete Blood Count With Diff (03/10/17 16:54) Magnesium (Mg) (03/10/17 16:54) Prothrombin Time / Inr (Pt) (03/10/17 16:54) Act Partial Throm Time (Ptt) (03/10/17 16:54) Troponin I (03/10/17 16:54) Chest, Single Ap (03/10/17 16:54) Ecg Monitoring (03/10/17 16:54) Iv Access Insert/Monitor (03/10/17 16:54) Oximetry (03/10/17 16:54) Oxygen Administration (03/10/17 16:54) Aspirin (Aspirin) (03/10/17 17:00) Sodium Chloride 0.9% Flush (Ns Flush) (03/10/17 17:00) Electrocardiogram (03/10/17 16:43) CKMB (03/10/17 17:10) CKMB% (03/10/17 17:10) Metoprolol Tartrate Inj (Lopressor Inj) (03/10/17 18:30) Heparin Inj (Heparin Inj) (03/10/17 18:30) Heparin Inj (Heparin Inj) (03/11/17 00:30) Heparin Inj (Heparin Inj) (03/11/17 00:30) Heparin-D5w 25,000 U/250 Ml (Heparin-D5w (03/10/17 18:30) Cbc No Diff, Includes Plts (03/13/17 06:00) Act Partial Throm Time (Ptt) (03/11/17 01:26) Occult Blood (Hemoccult) Stool (03/10/17 18:26) Admit Order (Ed Use Only) (03/10/17 18:40) Labs Laboratory Tests Test 03/10/17 17:10 White Blood Count 10.9 TH/MM3 Red Blood Count 4.08 MIL/MM3 Hemoglobin 13.1 GM/DL Hematocrit 38.3 % Mean Corpuscular Volume 93.8 FL Mean Corpuscular Hemoglobin 32.1 PG Mean Corpuscular Hemoglobin Concent 34.2 % Red Cell Distribution Width 13.4 % Platelet Count 229 TH/MM3 Mean Platelet Volume 9.2 FL Neutrophils (%) (Auto) 54.9 % Lymphocytes (%) (Auto) 33.1 % Monocytes (%) (Auto) 9.7 % Eosinophils (%) (Auto) 1.2 % Basophils (%) (Auto) 1.1 % Neutrophils # (Auto) 6.0 TH/MM3 Lymphocytes # (Auto) 3.6 TH/MM3 Monocytes # (Auto) 1.1 TH/MM3 Eosinophils # (Auto) 0.1 TH/MM3 Basophils # (Auto) 0.1 TH/MM3 CBC Comment DIFF FINAL Differential Comment Prothrombin Time 12.0 SEC Prothromb Time International Ratio 1.1 RATIO Activated Partial Thromboplast Time 24.5 SEC Blood Urea Nitrogen 24 MG/DL Creatinine 1.30 MG/DL Random Glucose 97 MG/DL Calcium Level 8.7 MG/DL Magnesium Level 2.2 MG/DL Sodium Level 139 MEQ/L Potassium Level 4.4 MEQ/L Chloride Level 105 MEQ/L Carbon Dioxide Level 28.6 MEQ/L Anion Gap 5 MEQ/L Estimat Glomerular Filtration Rate 55 ML/MIN Total Creatine Kinase 1754 U/L Creatine Kinase MB 11.9 NG/ML Creatine Kinase MB % 0.7 % Troponin I 0.17 NG/ML MDM Medical Decision Making Medical Screen Exam Complete: Yes Emergency Medical Condition: Yes Medical Record Reviewed: Yes Differential Diagnosis NSTEMI, unstable angina, coronary vasospasm, PE, PTX, aortic dissection, pericarditis, myocarditis, endocarditis, PNA, esophageal disease, aneurysm, musculoskeletal etiologies, anxiety, cocaine/sympathomimetic abuse Narrative Course CBC & BMP Diagram 03/10/17 17:10 Calcium Level 8.7, Magnesium Level 2.2 Tn 0.17 Total CK 1754 EKG: sinus, rate 83, TWI V1-V5, no ST elevations Last 24 hours Impressions Chest X-Ray 03/10/17 5814 Signed Impressions: Service Date/Time: February 17:04 - CONCLUSION: Stable nodule in the right upper lobe. Clips and wires suggest CABG. Maxwell Edmondson MD d/w Dr Schultz. d/w Dr Zuniga. Heparin started. CT pulm angio added on d/w Dr Schultz Critical Care Narrative Aggregate critical care time was 35 minutes. Time to perform other separately billable procedures was not included in the critical care time. My time did not include minutes spent treating any other patients simultaneously or on activities that did not directly contribute to the patient's treatment. The services I provided to this patient were to treat and/or prevent clinically significant deterioration that could result in: cardiopulmonary arrest; permanent disability I provided critical care services requiring my management, as noted below: Chart data review, documentation time, medication orders and management, vital sign assessments/reviewing monitor data, ordering and reviewing lab tests, ordering and interpreting/reviewing x-rays and diagnostic studies, care of the patient and discussion of the patient with the admitting physicians. Diagnosis Primary Impression: NSTEMI (non-ST elevated myocardial infarction) Additional Impression: SOB (shortness of breath) Admitting Information Admitting Physician Requests: it Des Roche MD Mar 10, 2017 19:01
[2017-03-10 20:35] VITALS: BP 120/73; PULSE 83; RESP 16; O2SAT 97
--- NOTE | 2017-03-10 21:35 | RADRPT ---
EXAM DATE/TIME: 03/10/2017 20:38 [facility] COMPARISON: CHEST SINGLE AP, March 10, 2017, 17:04. LUNG VENTILATION & PERFUSION SCAN, August 14, 2014, 19 :47. INDICATIONS : Dyspnea with fatigue for four days. DOSE: 32.2 mCi Tc99m MAA IV 1.7 mCi Tc99m DTPA aerosol MEDICAL HISTORY : Chronic obstructive pulmonary disease. Congestive heart failure. Guillian [place] Syndrome and coronar y artery disease. SURGICAL HISTORY : Appendectomy. CABG Lumbar spine surgery and hernia repair. ENCOUNTER: Initial ACUITY: 4 - 6 days PAIN SCALE: 0/10 LOCATION: chest TECHNIQUE: Following five minutes of tidal breathing of DTPA aerosol, planar images of the lungs were performed in eight projections. The patient was then injected with MAA, and eight-view perfusion scan was perf ormed. FINDINGS: Comparison one view chest x-ray today shows no significant infiltrate or effusion. There is diffusely heterogeneous ventilation. There is heterogeneous perfusion with numerous small peripheral subsegmental defects noted on both si ronen, right worse than left. Also, in general, and there is decrease perfusion of the right lung. CONCLUSION: High probability study for pulmonary embolus with numerous peripheral subsegmental defects of both dat ngs typical of small pulmonary emboli and also concern for a more central pulmonary embolus on the ri ght. James Lopez MD on March 10, 2017 at 21:31 Board Certified Radiologist. This report was verified electronically.
[2017-03-10] MEDS: SODIUM CHLORIDE 0.9% FLUSH 10 ML FLUSH IV FLUSH SCH (21:42)
[2017-03-10] MEDS: DOCUSATE SODIUM 50 MG/SENNA 8.6 MG TAB PO SCH (21:54)
[2017-03-10 22:07] VITALS: BP 115/82; PULSE 80; PULSE 83; RESP 20; TEMP 98.7; O2SAT 95
[2017-03-10 23:00] VITALS: PULSE 81
[2017-03-11] VITALS (13 sets, daily range): BP systolic 94–125; BP diastolic 65–83; PULSE 76–89; RESP 16–20; TEMP 97.5–98.7; O2SAT 93–99
[2017-03-11] MEDS ORDERED: HEPARIN SODIUM - IV 10,000 UNITS/10 ML VIAL IV PRN ×2 (00:30)
[2017-03-11] MEDS ORDERED: LORazepam 0.5 MG TAB PO ONE (04:30)
[2017-03-11 04:50] LABS: AUTOMATED NEUTROPHIL # 4.5 TH/MM3 (1.8-7.7); BASOPHIL # 0.1 TH/MM3 (0-0.2); EOSINOPHIL # 0.2 TH/MM3 (0-0.4); EOSINOPHIL % 2.1 % (0.0-4.0); HEMATOCRIT 35.5 % (39.0-51.0); HEMO FLAGS DIFF FINAL; LYMPH % 39.6 % (9.0-44.0); LYMPHOCYTE # 3.7 TH/MM3 (1.0-4.8); MEAN CELL VOLUME 93.8 FL (80.0-100.0); MEAN CORPUSCULAR HEMOGLOBIN 30.8 PG (27.0-34.0); MEAN CORPUSCULAR HGB CONC 32.8 % (32.0-36.0); MONO % 9.1 % (0.0-8.0); NEUT % 48.2 % (16.0-70.0); PLATELET COUNT 217 TH/MM3 (150-450); RED BLOOD COUNT 3.78 MIL/MM3 (4.50-5.90); RED CELL DISTRIBUTION WIDTH 13.5 % (11.6-17.2); WHITE BLOOD COUNT 9.3 TH/MM3 (4.0-11.0)
[2017-03-11 05:05] LABS: APTT (PATIENT) 40.2 SEC (24.3-30.1)
[2017-03-11 06:56] LABS: BICARBONATE 28.4 MEQ/L (21.0-32.0)
[2017-03-11 06:58] LABS: CKMB 9.2 NG/ML (0.5-3.6)
[2017-03-11 07:09] LABS: CKMB 9.8 NG/ML (0.5-3.6)
--- NOTE | 2017-03-11 07:34 | HHI.HP ---
[facility] Service [facility] Primary Care Physician Ravi Ornelas, DO Admission Diagnosis NSTEMI Diagnoses: Travel History International Travel<30 Days: No Contact w/Intl Traveler <30 Da: No Traveled to Known Affected Are: No History of Present Illness History from patient, ER physician notes, and review of medical records. Patient reports that he was having chest pressure with associated dyspnea for the past 3 days. Denies any peripheral edema. Also reports a feeling of palpitations. He states this was the main problem though. She also started feeling dizziness although he did not pass out. He states that his palpitations were quite severe that he measured as had home and the heart rate was around 119 when he walks from the living room to dining room. His normal heart rate is around 80s on medications. He states he takes metoprolol because he does have history of high heart rate. Denies any radiations of his chest tightness. Denies fever. But did have cold sweats. He reports of coughing episodes but this only happened early in the mornings when he woke up. He states all the phlegm from overnight stayed behind and he would cough so hard in the morning that he would vomit about once in the morning. No yellow or green sputum. No hematemesis. When asked about diarrhea, patient states he only had one episode of diarrhea this morning. Denies seeing any blood in his stool or in his urine. Patient reports of history of CADstatus post CABG many years ago. 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 Review of Systems Except as stated in HPI: all other systems reviewed are Neg Past Family Social History Past Medical History HTN CAD- CABG 2009 CHF Tachycardia- but not sure what afib is COPD Gilian Bare syndrome- 2011 Chronic back pains- on morphine pain pump Past Surgical History CABG 3 disc in lower back Upper neck sx [employer] implant morphine pump Appendectomy 3 hernia surgeries Allergies: Coded Allergies: Influenza Virus Vaccines (Unverified Allergy, Severe, GUILLIAN BARRE, 02/08) adhesive (Unverified Allergy, Severe, SKIN BREAKDOWN, 02/08/17) PAPER TAPE OK diatrizoate meglumine (Unverified Allergy, Severe, Anaphylaxis, 02/08/17) gadobenic acid (Unverified Allergy, Severe, Anaphylaxis, 02/08/17) gadodiamide (Unverified Allergy, Severe, Anaphylaxis, 02/08/17) gadoteridol (Unverified Allergy, Severe, Anaphylaxis, 02/08/17) iodixanol (Unverified Allergy, Severe, Anaphylaxis, 02/08/17) iohexol (Unverified Allergy, Severe, Anaphylaxis, 02/08/17) povidone-iodine (Unverified Allergy, Unknown, 02/08/17) Pt reacted to contrast dye request no Betadine Family History Dad- heart problems; brother- dm Social History Used to smoke, quit in 2009 No etoh no drugs Physical Exam Vital Signs Vital Signs Date Time Temp Pulse Resp B/P (MAP) Pulse Ox O2 Delivery O2 Flow Rate FiO2 03/11/17 05:00 80 03/11/17 05:00 98.5 80 20 101/68 (79) 96 03/11/17 04:00 80 20 95/66 (76) 03/11/17 03:00 80 20 94/67 (76) 96 03/11/17 03:00 80 03/11/17 02:00 80 20 97/67 (77) 93 03/11/17 02:00 80 03/11/17 01:00 80 03/11/17 01:00 81 20 119/78 (92) 95 03/11/17 00:00 83 03/11/17 00:00 97.5 83 20 125/83 (97) 97 03/10/17 23:00 81 03/10/17 22:36 03/10/17 22:07 83 03/10/17 22:07 98.7 80 20 115/82 (93) 95 03/10/17 20:35 83 16 120/73 (89) 97 Nasal Cannula 03/10/17 16:31 97.7 98 20 132/78 (96) 93 Room Air Physical Exam GENERAL: This is a well-nourished, well-developed patient, in no apparent distress. SKIN: No rashes, ecchymoses or lesions. Cool and dry. HEAD: Atraumatic. Normocephalic. No temporal or scalp tenderness. EYES: No scleral icterus. No injection or drainage. ENT: Nose without bleeding, purulent drainage or septal hematoma.. Airway patent. NECK: Trachea midline. No JVD CARDIOVASCULAR: Regular rate and rhythm without murmurs, gallops, or rubs. RESPIRATORY: Clear to auscultation. Breath sounds equal bilaterally. No wheezes , rales, or rhonchi. GASTROINTESTINAL: Abdomen soft, non-tender, nondistended.No guarding. MUSCULOSKELETAL: Extremities without clubbing, cyanosis, or edema. No calf tenderness. NEUROLOGICAL: Awake and alert Motor and sensory grossly within normal limits. Normal speech. Laboratory Laboratory Tests Test 03/10/17 17:10 03/10/17 23:30 03/11/17 02:00 White Blood Count 10.9 9.3 Red Blood Count 4.08 3.78 Hemoglobin 13.1 11.6 Hematocrit 38.3 35.5 Mean Corpuscular Volume 93.8 93.8 Mean Corpuscular Hemoglobin 32.1 30.8 Mean Corpuscular Hemoglobin Concent 34.2 32.8 Red Cell Distribution Width 13.4 13.5 Platelet Count 229 217 Mean Platelet Volume 9.2 8.5 Neutrophils (%) (Auto) 54.9 48.2 Lymphocytes (%) (Auto) 33.1 39.6 Monocytes (%) (Auto) 9.7 9.1 Eosinophils (%) (Auto) 1.2 2.1 Basophils (%) (Auto) 1.1 1.0 Neutrophils # (Auto) 6.0 4.5 Lymphocytes # (Auto) 3.6 3.7 Monocytes # (Auto) 1.1 0.8 Eosinophils # (Auto) 0.1 0.2 Basophils # (Auto) 0.1 0.1 CBC Comment DIFF FINAL DIFF FINAL Differential Comment Prothrombin Time 12.0 Prothromb Time International Ratio 1.1 Activated Partial Thromboplast Time 24.5 40.2 Blood Urea Nitrogen 24 22 Creatinine 1.30 1.11 Random Glucose 97 85 Calcium Level 8.7 8.5 Magnesium Level 2.2 Sodium Level 139 139 Potassium Level 4.4 4.0 Chloride Level 105 104 Carbon Dioxide Level 28.6 28.4 Anion Gap 5 7 Estimat Glomerular Filtration Rate 55 66 Total Creatine Kinase 1754 1346 1228 Creatine Kinase MB 11.9 9.8 9.2 Creatine Kinase MB % 0.7 0.7 0.7 Troponin I 0.17 0.16 0.15 Result Diagram: 03/11/17 0200 03/11/17 0200 Imaging Last 48 hours Impressions Chest X-Ray 03/10/17 1654 Signed Impressions: Service Date/Time: February 17:04 - CONCLUSION: Stable nodule in the right upper lobe. Clips and wires suggest CABG. Maxwell Edmondson MD Lung Scan-V Nuclear Medicine 03/10/17 0000 Signed Impressions: Service Date/Time: February 20:38 - CONCLUSION: High probability study for pulmonary embolus with numerous peripheral subsegmental defects of both lungs typical of small pulmonary emboli and also concern for a more central pulmonary embolus on the right. MD Osmani Jj VTE Risk Assessment Caprini VTE Risk Assessment: Mod/High Risk (score >= 2) Caprini Risk Assessment Model Point Value = 1 Point Value = 2 Point Value = 3 Point Value = 5 Age 41-60 Minor surgery BMI > 25 kg/m2 Swollen legs Varicose veins or History of unexplained or recurrent spontaneous Oral contraceptives or hormone replacement Sepsis (< 1 month) Serious lung disease, including pneumonia (< 1 month) Abnormal pulmonary function Acute myocardial infarction Congestive heart failure (< 1 month) History of inflammatory bowel disease Medical patient at bed rest Age 61-74 Arthroscopic surgery Major open surgery (> 45 min) Laparoscopic surgery (> 45 min) Malignancy Confined to bed (> 72 hours) Immobilizing plaster cast Central venous access Age >= 75 History of VTE Family history of VTE Factor V Leiden Prothrombin [id number] Lupus anticoagulant Anticardiolipin antibodies Elevated serum homocysteine Heparin-induced thrombocytopenia Other congenital or acquired thrombophilia Stroke (< 1 month) Elective arthroplasty Hip, pelvis, or leg fracture Acute spinal cord injury (< 1 month) Prophylaxis Regimen Total Risk Factor Score Risk Level Prophylaxis Regimen 0-1 Low Early ambulation 2 Moderate Order ONE of the following: *Sequential Compression Device (SCD) *Heparin 5000 units SQ BID 3-4 Higher Order ONE of the following medications: *Heparin 5000 units SQ TID *Enoxaparin/Lovenox 40 mg SQ daily (WT < 150 kg, CrCl > 30 mL/min) *Enoxaparin/Lovenox 30 mg SQ daily (WT < 150 kg, CrCl > 10-29 mL/min) *Enoxaparin/Lovenox 30 mg SQ BID (WT < 150 kg, CrCl > 30 mL/min) AND/OR *Sequential Compression Device (SCD) 5 or more Highest Order ONE of the following medications: *Heparin 5000 units SQ TID (Preferred with Epidurals) *Enoxaparin/Lovenox 40 mg SQ daily (WT < 150 kg, CrCl > 30 mL/min) *Enoxaparin/Lovenox 30 mg SQ daily (WT < 150 kg, CrCl > 10-29 mL/min) *Enoxaparin/Lovenox 30 mg SQ BID (WT < 150 kg, CrCl > 30 mL/min) AND *Sequential Compression Device (SCD) Assessment and Plan Assessment and Plan Impression: chest pain/ sob/ weakness- given hx of palpitations, normal cxr and lung exam- VQ done- high probabilty VQ elevated cardiac enzymes- non specific, more of mild rhabdo HTN CAD- CABG 2009 CHF Tachycardia- but not sure what afib is COPD Anneliese Berr syndrome- 2011 Chronic back pains- on morphine pain pump Plan heparin drip Hematology consult for hypercoagulable workup since patient is quite active lifestyle in no apparent risk factors for pulmonary embolism. cardio was consulted from ER serial enzymes and ekg resume home meds DVT prophylaxis on heparin drip Discussed Condition With patient, nursing staff Physician Certification 2 Midnight Certification Type: Admission for Inpatient Services Order for Inpatient Services The services are ordered in accordance with Medicare regulations or non- Medicare payer requirements, as applicable. In the case of services not specified as inpatient-only, they are appropriately provided as inpatient services in accordance with the 2-midnight benchmark. Estimated LOS (days): 2 days is the estimated time the patient will need to remain in the hospital, assuming treatment plan goals are met and no additional complications. Post-Hospital Plan: Home Wiliam Felton MD Mar 11, 2017 07:34
[2017-03-11] MEDS: DOCUSATE SODIUM 50 MG/SENNA 8.6 MG TAB PO SCH ×2 (08:02→21:00)
[2017-03-11] MEDS: SODIUM CHLORIDE 0.9% FLUSH 10 ML FLUSH IV FLUSH SCH ×2 (08:02→21:00)
[2017-03-11] MEDS ORDERED: BACLOFEN 10 MG TAB PO PRN (08:45)
[2017-03-11] MEDS ORDERED: LORazepam 1 MG TAB PO PRN (08:45)
[2017-03-11] MEDS ORDERED: PILL SPLITTER OTHER PRN (09:45)
--- NOTE | 2017-03-11 09:47 | PD.CONS ---
HPI Service Cardiology Physicians Consult Requested By Dr Schultz Reason for Consult chest pain Primary Care Physician Ravi Ornelas, DO History of Present Illness The patient is a 66 year old male known to our practice with a cardiac history of CABG, HTN, and HLD. Other notable history of DVT and questionable PE. The patient had a sudden onset of SOB, chest tightness, weakness, palpitation that feels like his heart is racing and nausea with dry heaving five days ago. The symptoms have been constant since. He denies BLE edema or lightheadedness. Work up reveals increased troponin and high probability VQ. On examination today , he continues to have some SOB and chest pressure at rest. HR stable. BP trending down. On O2. (Nayely Vazquez) Review of Systems Consitutional: COMPLAINS OF: Fatigue, DENIES: Fever, Chills, Weight gain, Weight loss Eyes: DENIES: Amaurosis Fugax, Change in vision HEENT: DENIES: Lightheadedness, Change in hearing Respiratory: COMPLAINS OF: Shortness of breath, DENIES: See HPI, Cough, Snoring , Wheezing, Sputum production Cardiovascular: COMPLAINS OF: Chest pain, Palpitations, Tachycardia, DENIES: See HPI, Syncope Gastrointestinal: COMPLAINS OF: Nausea, Vomiting, DENIES: Change in bowel habits, Reflux, Bloody stools, Melena Genitourinary: DENIES: Urinary incontinence, Difficulty voiding Integumentary: DENIES: Rash Neurologic: DENIES: Tingling or numbness, Memory problems, Poor Balance, Stroke symptoms Musculoskeletal: COMPLAINS OF: Joint pain, DENIES: Muscle pain, Limited range of motion, Back pain Psychiatric: DENIES: Anxiety, Depression, Sleep disturbances Hematologic: DENIES: Bruising tendencies, Bleeding tendencies Endocrine: DENIES: Weight gain, Weight loss, Thyroid disease (Nayely Vazquez ) Past Family Social History Allergies: Coded Allergies: Influenza Virus Vaccines (Unverified Allergy, Severe, GUILLIAN BARRE, 02/08) adhesive (Unverified Allergy, Severe, SKIN BREAKDOWN, 02/08/17) PAPER TAPE OK diatrizoate meglumine (Unverified Allergy, Severe, Anaphylaxis, 02/08/17) gadobenic acid (Unverified Allergy, Severe, Anaphylaxis, 02/08/17) gadodiamide (Unverified Allergy, Severe, Anaphylaxis, 02/08/17) gadoteridol (Unverified Allergy, Severe, Anaphylaxis, 02/08/17) iodixanol (Unverified Allergy, Severe, Anaphylaxis, 02/08/17) iohexol (Unverified Allergy, Severe, Anaphylaxis, 02/08/17) povidone-iodine (Unverified Allergy, Unknown, 02/08/17) Pt reacted to contrast dye request no Betadine Past Medical History Hx DVT and questionable PE Decreased LV function EF 45% ASHD HLD intolerant to statins HTN GERD Lung nodule Anneliese [place] Spinal stenosis Chronic pain Past Surgical History CABG 2010 Cervical spinal fusion 2016 Hernia surgery 2015 Lumbar surgery 2013 Reported Medications Reported Meds & Active Scripts Active Aspirin EC (Aspirin) 325 Mg Tabdr 325 Mg PO DAILY 30 Days Reported Infumorph 200 Inj (Morphine Sulfate) 10 Mg/Ml Inj 0.75 Mg EPIDURAL CONTINUOUS PRN Lorazepam 1 Mg Tab 1 Mg PO DAILY PRN Omeprazole 40 Mg Cap 40 Mg PO DAILY Oxycodone (Oxycodone HCl) 10 Mg Tab 10 Mg PO Q6H PRN Reglan (Metoclopramide HCl) 5 Mg Tab 5 Mg PO TIDAC Baclofen 10 Mg Tab 10 Mg PO Q8HR PRN Metoprolol Tartrate 25 Mg Tab 25 Mg PO BID Active Ordered Medications Current Medications Medications (Trade) Dose Ordered Sig/Faviola Route Start Time Stop Time Status Last Admin (NS Flush) 2 ml UNSCH PRN IVF 03/10/17 17:00 (Heparin Inj) 5,000 units UNSCH PRN IV 03/11/17 00:30 (Heparin Inj) 2,500 units UNSCH PRN IV 03/11/17 00:30 Heparin Sodium/ Dextrose 250 ml @ 9 mls/hr TITRATE PRN IV 03/10/17 18:30 03/10/17 18:44 (NS Flush) 2 ml UNSCH PRN IV FLUSH 03/10/17 18:45 (NS Flush) 2 ml BID IV FLUSH 03/10/17 21:00 03/11/17 08:02 (Tylenol) 650 mg Q4H PRN PO 03/10/17 18:45 (Zofran Inj) 4 mg Q6H PRN IVP 03/10/17 18:45 03/11/17 08:09 (Narcan Inj) 0.4 mg UNSCH PRN IV PUSH 03/10/17 18:45 (Nivia-Colace) 1 tab BID PO 03/10/17 21:00 03/10/17 21:54 (Milk Of Magnesia Liq) 30 ml Q12H PRN PO 03/10/17 18:45 (Senokot) 17.2 mg Q12H PRN PO 03/10/17 18:45 (Dulcolax Supp) 10 mg DAILY PRN RECTAL 03/10/17 18:45 (Lactulose Liq) 30 ml DAILY PRN PO 03/10/17 18:45 (Ecotrin Ec) 325 mg DAILY PO 03/11/17 09:00 UNV (Lioresal) 10 mg Q8HR PRN PO 03/11/17 08:45 UNV (Ativan) 1 mg DAILY PRN PO 03/11/17 08:45 UNV (Lopressor) 25 mg BID PO 03/11/17 09:00 UNV Non-Formulary Medication 5 mg TIDAC PO 03/11/17 12:00 UNV Non-Formulary Medication 40 mg DAILY PO 03/11/17 09:00 UNV Family History non contributory Social History Lives with , former smoker (Nayely Vazquez) Physical Exam Vital Signs Vital Signs Date Time Temp Pulse Resp B/P (MAP) Pulse Ox O2 Delivery O2 Flow Rate FiO2 03/11/17 07:00 98.7 85 20 102/70 (81) 99 03/11/17 05:00 80 03/11/17 05:00 98.5 80 20 101/68 (79) 96 03/11/17 04:00 80 20 95/66 (76) 03/11/17 03:00 80 20 94/67 (76) 96 03/11/17 03:00 80 03/11/17 02:00 80 20 97/67 (77) 93 03/11/17 02:00 80 03/11/17 01:00 80 03/11/17 01:00 81 20 119/78 (92) 95 03/11/17 00:00 83 03/11/17 00:00 97.5 83 20 125/83 (97) 97 03/10/17 23:00 81 03/10/17 22:36 03/10/17 22:07 83 03/10/17 22:07 98.7 80 20 115/82 (93) 95 03/10/17 20:35 83 16 120/73 (89) 97 Nasal Cannula 03/10/17 16:31 97.7 98 20 132/78 (96) 93 Room Air Physical Exam GENERAL: Thin, middle age male, NAD SKIN: Warm and dry. HEAD: Atraumatic. Normocephalic. EYES: Pupils equal and round. No scleral icterus. ENT: No nasal bleeding or discharge. NECK: Trachea midline. CARDIOVASCULAR: Regular rate and rhythm. RESPIRATORY: No accessory muscle use. Breath sounds equal bilaterally. Nasal cannula, exp wheeze GASTROINTESTINAL: Abdomen soft, non-tender, nondistended. MUSCULOSKELETAL: Extremities without clubbing, cyanosis, or edema. NEUROLOGICAL: Awake and alert. No obvious cranial nerve deficits. Motor grossly within normal limits. Five out of 5 muscle strength in the arms and legs. Normal speech. PSYCHIATRIC: Appropriate mood and affect; insight and judgment normal. Laboratory Laboratory Tests Test 03/10/17 17:10 03/10/17 23:30 03/11/17 02:00 White Blood Count 10.9 9.3 Red Blood Count 4.08 3.78 Hemoglobin 13.1 11.6 Hematocrit 38.3 35.5 Mean Corpuscular Volume 93.8 93.8 Mean Corpuscular Hemoglobin 32.1 30.8 Mean Corpuscular Hemoglobin Concent 34.2 32.8 Red Cell Distribution Width 13.4 13.5 Platelet Count 229 217 Mean Platelet Volume 9.2 8.5 Neutrophils (%) (Auto) 54.9 48.2 Lymphocytes (%) (Auto) 33.1 39.6 Monocytes (%) (Auto) 9.7 9.1 Eosinophils (%) (Auto) 1.2 2.1 Basophils (%) (Auto) 1.1 1.0 Neutrophils # (Auto) 6.0 4.5 Lymphocytes # (Auto) 3.6 3.7 Monocytes # (Auto) 1.1 0.8 Eosinophils # (Auto) 0.1 0.2 Basophils # (Auto) 0.1 0.1 CBC Comment DIFF FINAL DIFF FINAL Differential Comment Prothrombin Time 12.0 Prothromb Time International Ratio 1.1 Activated Partial Thromboplast Time 24.5 40.2 Blood Urea Nitrogen 24 22 Creatinine 1.30 1.11 Random Glucose 97 85 Calcium Level 8.7 8.5 Magnesium Level 2.2 Sodium Level 139 139 Potassium Level 4.4 4.0 Chloride Level 105 104 Carbon Dioxide Level 28.6 28.4 Anion Gap 5 7 Estimat Glomerular Filtration Rate 55 66 Total Creatine Kinase 1754 1346 1228 Creatine Kinase MB 11.9 9.8 9.2 Creatine Kinase MB % 0.7 0.7 0.7 Troponin I 0.17 0.16 0.15 (Nayely Vazquez) Result Diagram: 03/11/17 0200 03/11/17 0200 Imaging Last 72 hours Impressions Chest X-Ray 03/10/17 1654 Signed Impressions: Service Date/Time: February 17:04 - CONCLUSION: Stable nodule in the right upper lobe. Clips and wires suggest CABG. Maxwell Edmondson MD Lung Scan-VQ Nuclear Medicine 03/10/17 0000 Signed Impressions: Service Date/Time: February 20:38 - CONCLUSION: High probability study for pulmonary embolus with numerous peripheral subsegmental defects of both lungs typical of small pulmonary emboli and also concern for a more central pulmonary embolus on the right. James Lopez MD (Nayely Vazquez) Assessment and Plan Assessment and Plan New PE with history of DVT and questionable PE. HR stable. BP trending down. Elevated troponin due to insult from PE ASHD Hx of CABG HTN HLD intolerant of statins Former smoker Chronic pain PLAN: Transfer to ICU Stat Echo to evaluate for right heart strain Continue heparin. Transition to Eliis once echo completed, remains stable Discussed with Dr Schultz Patient seen and evaluated by who completed face to face encounter and physical exam, and participated in evaluation management. (Nayely Vazquez) Assessment and Plan The exam, history, and the medical decision-making described in the above note were completed with the assistance of the mid-level provider. I reviewed and agree with the findings presented. I attest that I had a [id number] encounter with the patient on the same day, and personally performed and documented my assessment and findings in the medical record. Has Pulmonary embolus on meds (Cate Zuniga MD) Nayely Vazquez Mar 11, 2017 09:47 Cate Zuniga MD Mar 11, 2017 17:08
[2017-03-11] MEDS: PANTOPRAZOLE SOD 40 MG DELAYED RELEASE TAB PO SCH (10:25)
[2017-03-11] MEDS: METOCLOPRAMIDE HCL 10 MG TAB PO SCH ×2 (10:25→17:36)
[2017-03-11] MEDS: ASPIRIN EC 325 MG TABEC PO SCH (10:25)
[2017-03-11] MEDS: METOPROLOL TARTRATE 25 MG TAB PO SCH ×2 (10:25→21:00)
--- NOTE | 2017-03-11 11:40 | EKG ---
Date Performed: 03/10/2017 Time Performed: 18:32:04 PTAGE: 66 years EKG: Sinus rhythm MODERATE T-WAVE ABNORMALITY, CONSIDER ANTEROLATERAL ISCHEMIA ABNORMAL ECG Compared to prior tracing no significant change PREVIOUS TRACING : 03/10/2017 16.43 DOCTOR: Asher Caceres Interpretating Date/Time 03/11/2017 11:38:23
--- NOTE | 2017-03-11 12:10 | EKG ---
Date Performed: 03/10/2017 Time Performed: 16:43:29 PTAGE: 66 years EKG: Sinus rhythm POSSIBLE LEFT ATRIAL ENLARGEMENT MODERATE T-WAVE ABNORMALITY, CONSIDER ANTEROLATERAL ISCHEMIA ABNORM AL ECG Compared to PREVIOUS TRACING , anterior T-wave abnormalities are markedly more prominent and clinical correlation for ischemia is recommended. PREVIOUS TRACING DOCTOR: Asher Caceres Interpretating Date/Time 03/11/2017 12:09:34
[2017-03-11 12:57] LABS: APTT (PATIENT) 33.4 SEC (24.3-30.1)
--- NOTE | 2017-03-11 13:39 | EKG ---
Date Performed: 03/11/2017 Time Performed: 09:52:52 PTAGE: 66 years EKG: Sinus rhythm . Nonspecific ST and T wave abnormalities Abnormal ECG No significant change from prior electrocardio gram. PREVIOUS TRACING : 03/11/2017 02.30 DOCTOR: Arcadio Rinaldi Interpretating Date/Time 03/11/2017 13:38:04
--- NOTE | 2017-03-11 13:50 | EKG ---
Date Performed: 03/11/2017 Time Performed: 02:30:52 PTAGE: 66 years EKG: Sinus rhythm Nonspecific ST and T wave abnormalities Abnormal ECG No significant change from prior electrocardiog jose. PREVIOUS TRACING : 03/10/2017 23.35 DOCTOR: Arcadio Rinaldi Interpretating Date/Time 03/11/2017 13:49:16
--- NOTE | 2017-03-11 13:51 | EKG ---
Date Performed: 03/10/2017 Time Performed: 23:35:50 PTAGE: 66 years EKG: Sinus rhythm Nonspecific ST and T wave abnormalities Abnormal ECG No significant change from prior electrocardiog jose. PREVIOUS TRACING : 03/10/2017 18.32 DOCTOR: Arcadio Rinaldi Interpretating Date/Time 03/11/2017 13:50:32
--- NOTE | 2017-03-11 14:40 | PD.CONS ---
HPI Service Critical Care Medicine Consult Requested By [facility] Reason for Consult Critical Care Primary Care Physician Ravi Ornelas, DO History of Present Illness 66 year old man with sudden onset SOB, history of DVT and high probability PE on V/Q scan today. He has had several days of SOB culminating in chest pain. Cardiac markers are minimally elevated. Would not recommend thrombolytic therapy for this event because of age of event, 3-4 days, stable hemodynamics. Mild hypotension worrisome but has responded to preload. Lengthy discussion with patient and about risks and treatment of this problem. Review of Systems Respiratory: COMPLAINS OF: Shortness of breath Cardiovascular: COMPLAINS OF: Chest pain, Dyspnea on Exertion Past Family Social History Allergies: Coded Allergies: Influenza Virus Vaccines (Unverified Allergy, Severe, GUILLIAN BARRE, 02/08) adhesive (Unverified Allergy, Severe, SKIN BREAKDOWN, 02/08/17) PAPER TAPE [place] diatrizoate meglumine (Unverified Allergy, Severe, Anaphylaxis, 02/08/17) gadobenic acid (Unverified Allergy, Severe, Anaphylaxis, 02/08/17) gadodiamide (Unverified Allergy, Severe, Anaphylaxis, 02/08/17) gadoteridol (Unverified Allergy, Severe, Anaphylaxis, 02/08/17) iodixanol (Unverified Allergy, Severe, Anaphylaxis, 02/08/17) iohexol (Unverified Allergy, Severe, Anaphylaxis, 02/08/17) povidone-iodine (Unverified Allergy, Unknown, 02/08/17) Pt reacted to contrast dye request no Betadine Past Medical History HTN CAD- CABG 2009 CHF Tachycardia- but not sure what afib is COPD Gilian Bare syndrome- 2012 Chronic back pains- on morphine pain pump Past Surgical History CABG 3 disc in lower back Upper neck sx [employer] implant morphine pump Appendectomy 3 hernia surgeries Physical Exam Vital Signs Vital Signs Date Time Temp Pulse Resp B/P (MAP) Pulse Ox O2 Delivery O2 Flow Rate FiO2 03/11/17 11:41 98.1 88 20 101/71 (81) 99 03/11/17 07:00 98.7 85 20 102/70 (81) 99 03/11/17 05:00 80 03/11/17 05:00 98.5 80 20 101/68 (79) 96 03/11/17 04:00 80 20 95/66 (76) 03/11/17 03:00 80 20 94/67 (76) 96 03/11/17 03:00 80 03/11/17 02:00 80 20 97/67 (77) 93 03/11/17 02:00 80 03/11/17 01:00 80 03/11/17 01:00 81 20 119/78 (92) 95 03/11/17 00:00 83 03/11/17 00:00 97.5 83 20 125/83 (97) 97 03/10/17 23:00 81 03/10/17 22:36 03/10/17 22:07 83 03/10/17 22:07 98.7 80 20 115/82 (93) 95 03/10/17 20:35 83 16 120/73 (89) 97 Nasal Cannula 03/10/17 16:31 97.7 98 20 132/78 (96) 93 Room Air Physical Exam P 82, SBP 102, RR 16 nonlabored, Sats 93% 4L Head: Atraumatic. Neck: Supple, airway widely patent. Lungs: Clear, no wheezes or crackles. Mild tachypnea. Heart: NL S1S2, No m,r. No JVD. Abdomen: Benign, soft. Extremities: Warm, well perfused. No edema. Neuro: O X 3, alert, cooperative. Moves 4 limbs. Laboratory Laboratory Tests Test 03/10/17 17:10 03/10/17 23:30 03/11/17 02:00 03/11/17 12:30 White Blood Count 10.9 9.3 Red Blood Count 4.08 3.78 Hemoglobin 13.1 11.6 Hematocrit 38.3 35.5 Mean Corpuscular Volume 93.8 93.8 Mean Corpuscular Hemoglobin 32.1 30.8 Mean Corpuscular Hemoglobin Concent 34.2 32.8 Red Cell Distribution Width 13.4 13.5 Platelet Count 229 217 Mean Platelet Volume 9.2 8.5 Neutrophils (%) (Auto) 54.9 48.2 Lymphocytes (%) (Auto) 33.1 39.6 Monocytes (%) (Auto) 9.7 9.1 Eosinophils (%) (Auto) 1.2 2.1 Basophils (%) (Auto) 1.1 1.0 Neutrophils # (Auto) 6.0 4.5 Lymphocytes # (Auto) 3.6 3.7 Monocytes # (Auto) 1.1 0.8 Eosinophils # (Auto) 0.1 0.2 Basophils # (Auto) 0.1 0.1 CBC Comment DIFF FINAL DIFF FINAL Differential Comment Prothrombin Time 12.0 Prothromb Time International Ratio 1.1 Activated Partial Thromboplast Time 24.5 40.2 33.4 Blood Urea Nitrogen 24 22 Creatinine 1.30 1.11 Random Glucose 97 85 Calcium Level 8.7 8.5 Magnesium Level 2.2 Sodium Level 139 139 Potassium Level 4.4 4.0 Chloride Level 105 104 Carbon Dioxide Level 28.6 28.4 Anion Gap 5 7 Estimat Glomerular Filtration Rate 55 66 Total Creatine Kinase 1754 1346 1228 Creatine Kinase MB 11.9 9.8 9.2 Creatine Kinase MB % 0.7 0.7 0.7 Troponin I 0.17 0.16 0.15 Result Diagram: 03/11/1719903/11/17199 Assessment and Plan Problem List: (1) Acute pulmonary embolus ICD Code: I26.99 - Other pulmonary embolism without acute cor pulmonale Status: Acute (2) Chest pain ICD Code: R07.9 - Chest pain, unspecified Status: Acute (3) Hypoxemia ICD Code: R09.02 - Hypoxemia Status: Acute Assessment and Plan Plan: 1. Heparin gtt infusion. 2. No thrombolytics. 3. Protonix. 4. Bed rest today. 5. No SCDs. 6. Convert to PO anticoagulant in a.m. 7. Wean supple O2. 8. Tele. Overall impression: Critically ill with acute bilateral pulmonary emboli. Mild hypotension responds to volume. Pleuritic pain limits excursions. Admit ICU. Critical care 38 mins Jermaine Langston MD Mar 11, 2017 14:40
--- NOTE | 2017-03-11 15:36 | HHI.PR ---
Addendum to Inpatient Note Additional Information Patient seen/examined and also discussed with cardiology. Due to VQ scan findings of PE and based on cardiology recs, we will transfer patient to ICU and consult ICU attending. Patient is currently hemodynamically stable and currently on heparin drip. Srinivasan Schultz DO Mar 11, 2017 3:36 pm
[2017-03-11] MEDS ORDERED: 1/2 NS + KCL 20 MEQ INJ 1,000 ML IV SCH (17:30)
[2017-03-11] MEDS: oxyCODONE/ACETAMINOPHEN 10 MG/325 MG TAB PO PRN (17:35)
[2017-03-11 21:13] LABS: APTT (PATIENT) 42.5 SEC (24.3-30.1)
[2017-03-12] VITALS (8 sets, daily range): BP systolic 87–109; BP diastolic 52–65; PULSE 68–86; RESP 16–21; TEMP 97.7–98.4; O2SAT 93–98
[2017-03-12 03:11] LABS: APTT (PATIENT) 46.7 SEC (24.3-30.1)
[2017-03-12 03:18] LABS: BICARBONATE 26.5 MEQ/L (21.0-32.0); POTASSIUM 4.1 MEQ/L (3.5-5.1)
[2017-03-12] MEDS: DOCUSATE SODIUM 50 MG/SENNA 8.6 MG TAB PO SCH ×2 (08:47→21:09)
[2017-03-12] MEDS: PANTOPRAZOLE SOD 40 MG DELAYED RELEASE TAB PO SCH (08:47)
[2017-03-12] MEDS: ASPIRIN EC 325 MG TABEC PO SCH (08:47)
[2017-03-12] MEDS: METOCLOPRAMIDE HCL 10 MG TAB PO SCH ×3 (08:47→17:00)
[2017-03-12] MEDS: METOPROLOL TARTRATE 25 MG TAB PO SCH ×2 (08:47→21:00)
[2017-03-12] MEDS: SODIUM CHLORIDE 0.9% FLUSH 10 ML FLUSH IV FLUSH SCH ×2 (08:48→21:10)
[2017-03-12] MEDS: oxyCODONE/ACETAMINOPHEN 10 MG/325 MG TAB PO PRN ×3 (08:51→23:25)
--- NOTE | 2017-03-12 11:03 | ECHRPT ---
Indication: SHORTNESS OF BREATH, PULMONARY EMBOLI CONCLUSIONS Normal left ventricular size. Wall thickness is normal. The right ventricular size is normal. The right ventricular systoilc function is decreased. The left atrial size is mildly dilated. The right atrial size is mildly dilated. The interatrial septum not well visualized. Trace mitral valve regurgitation. Aortic valve sclerosis is present. No aortic valve stenosis. There is mild tricuspid valve regurgitation. There is estimated mild pulmonary hypertension present (range 40-50 mmHg). The pulmonary valve is not well visualized. BP: 102 / 70 HR: 85 Rhythm: Sinus MEASUREMENTS (Male / Female) Normal Values Technical Quality:Technically difficult study., Po or 2D ECHO LV Diastolic Diameter PLAX 4.6 cm 4.2 - 5.9 / 3.9 - 5.3 cm LV Systolic Diameter PLAX 3.3 cm IVS Diastolic Thickness 0.9 cm 0.6 - 1.0 / 0.6 - 0.9 cm LVPW Diastolic Thickness 0.9 cm 0.6 - 1.0 / 0.6 - 0.9 cm LV Relative Wall Thickness 0.4 LVOT Diameter 2.8 cm Aortic Root Diameter 3.7 cm LA Systolic Diameter LX 2.9 cm 3.0 - 4.0 / 2.7 - 3.8 cm M-MODE AV Cusp Separation MM 1.2 cm DOPPLER AV Peak Velocity 167.0 cm/s AV Peak Gradient 11.2 mmHg AV Mean Gradient 6.0 mmHg AV Velocity Time Integral 32.2 cm LVOT Peak Velocity 101.0 cm/s LVOT Peak Gradient 4.1 mmHg LVOT Velocity Time Integral 17.0 cm LVOT Cardiac Index 4664.4 cm/minm AV Area Cont Eq vti 3.3 cm AV Area Cont Eq pk 3.7 cm Mitral E Point Velocity 36.0 cm/s Mitral A Point Velocity 42.4 cm/s Mitral E to A Ratio 0.8 TR Peak Velocity 311.0 cm/s TR Peak Gradient 38.7 mmHg FINDINGS LEFT VENTRICLE Normal left ventricular size. Wall thickness is normal. The left ventricular systolic function is normal with an estimated ejection fraction in the range of 60-65%. RIGHT VENTRICLE The right ventricular size is normal. The right ventricular systoilc function is decreased. LEFT ATRIUM The left atrial size is mildly dilated. RIGHT ATRIUM The right atrial size is mildly dilated. ATRIAL SEPTUM The interatrial septum not well visualized. AORTA The aortic root and proximal ascending aorta are normal in size on limited imaging. MITRAL VALVE Structurally normal mitral valve. Trace mitral valve regurgitation. AORTIC VALVE Aortic valve sclerosis is present. The aortic valve is not well visualized. No aortic valve stenosis. TRICUSPID VALVE Structurally normal tricuspid valve. There is mild tricuspid valve regurgitation. There is estimated mild pulmonary hypertension present (range 40-50 mmHg). PULMONARY VALVE The pulmonary valve is not well visualized. VESSELS The inferior vena cava was not well visualized. PERICARDIUM No pericardial effusion. Arcadio Rinaldi MD (Electronically Signed) Final Date:12 March 2017 11:02
--- NOTE | 2017-03-12 13:26 | HHI.PR ---
Subjective Remarks Follow up for PE. Patient is doing well. No fever, chills. No CP, SOB. Objective Vitals Vital Signs Date Time Temp Pulse Resp B/P (MAP) Pulse Ox O2 Delivery O2 Flow Rate FiO2 03/12/17 07:30 98.0 86 18 89/55 (66) 97 03/12/17 07:30 86 03/12/17 03:12 81 03/12/17 03:09 97.9 81 16 109/58 (75) 96 03/11/17 23:15 97.7 76 16 104/65 (78) 96 03/11/17 23:01 80 03/11/17 20:35 97.9 87 18 109/73 (85) 94 03/11/17 19:00 89 03/11/17 17:00 Nasal Cannula 3.00 03/11/17 16:22 98.6 78 16 101/68 (79) 95 03/11/17 16:22 77 I/O 03/11/17 03/11/17 03/11/17 03/12/17 03/12/17 03/12/17 07:00 15:00 23:00 07:00 15:00 23:00 Intake Total 285 ml 1624 ml 100 ml Output Total 250 ml 300 ml Balance 35 ml 1324 ml 100 ml Intake Oral 240 ml 720 ml 100 ml IV Total 45 ml 904 ml Output Urine Total 250 ml 300 ml Emesis 0 ml # Voids 0 # Bowel Movements 0 0 Result Diagram: 03/11/17 0200 03/12/17 0224 Imaging Last Impressions Chest X-Ray 03/10/17 1654 Signed Impressions: Service Date/Time: February 17:04 - CONCLUSION: Stable nodule in the right upper lobe. Clips and wires suggest CABG. Maxwell Edmondson MD Lung Scan-V Nuclear Medicine 03/10/17 0000 Signed Impressions: Service Date/Time: February 20:38 - CONCLUSION: High probability study for pulmonary embolus with numerous peripheral subsegmental defects of both lungs typical of small pulmonary emboli and also concern for a more central pulmonary embolus on the right. James Lopez MD Objective Remarks GENERAL: AOX3, NAD. SKIN: Warm and dry. HEAD: Normocephalic. EYES: No scleral icterus. No injection or drainage. NECK: Supple, trachea midline. No JVD or lymphadenopathy. CARDIOVASCULAR: Regular rate and rhythm without murmurs, gallops, or rubs. RESPIRATORY: Breath sounds equal bilaterally. No accessory muscle use. GASTROINTESTINAL: Abdomen soft, non-tender, nondistended. MUSCULOSKELETAL: No cyanosis, or edema. BACK: Nontender without obvious deformity. No CVA tenderness. A/P Problem List: (1) Bilateral pulmonary embolism ICD Code: I26.99 - Other pulmonary embolism without acute cor pulmonale (2) Hypertension ICD Code: I10 - Essential (primary) hypertension Status: Chronic (3) Hyperlipidemia ICD Code: E78.5 - Hyperlipidemia, unspecified Status: Chronic Assessment and Plan Mr. Bonilla is a pleasant 66 year old male with a history of CAD s/p CABG in 2009 who presented to the ED due to sudden onset of shortness of breath and chest discomfort that started 4 or 5 days prior to this admission. VQ scan showed evidence of bilateral PE. - Bilateral pulmonary embolism - Patient remains hemodynamically stable. - Continue to wean off suppl O2. - Will stop heparin drip at 9pm today and start Apixaban 10mg BID X 7 days, then 5mg BID indefinitely. - Hypertension - CAD s/p CABG in 2009 - Hyperlipidemia - Continue metoprolol 25mg BID. Per Cardiology note, he has been unable to tolerate statin before. - Will discontinue aspirin since mild troponin elevation is thought to be related to PE. - If recommended by cardiology, Aspirin 81mg Qday could be considered. - Rhabdomyolysis - Mild kidney injury, creatinine 1.11 --> 0.94. - Total CK 1346 --> 1228. - NS @150cc/hour. - Will check BMP and total CK in the AM. Full code. Apixaban. Srniivasan Schultz DO Mar 12, 2017 13:26
[2017-03-12] MEDS: HEPARIN-D5W 25,000 U/250 ML 250 ML IV PRN (16:20)
[2017-03-12] MEDS: APIXABAN 5 MG TABLET PO SCH (21:09)
[2017-03-12] MEDS: SODIUM CHLOR 0.9% 1000 ML INJ 1,000 ML IV SCH (23:20)
[2017-03-13 02:45] LABS: APTT (PATIENT) 30.6 SEC (24.3-30.1)
[2017-03-13 02:52] LABS: BICARBONATE 30.2 MEQ/L (21.0-32.0); POTASSIUM 4.1 MEQ/L (3.5-5.1)
[2017-03-13 03:00] VITALS: BP 95/55; PULSE 78; PULSE 79; RESP 20; TEMP 98.1; O2SAT 93
[2017-03-13 03:16] LABS: CKMB 4.8 NG/ML (0.5-3.6)
[2017-03-13] MEDS: SODIUM CHLOR 0.9% 1000 ML INJ 1,000 ML IV SCH (05:25)
[2017-03-13 07:00] VITALS: BP 102/63; PULSE 89; RESP 16; TEMP 98.3; O2SAT 92
[2017-03-13] MEDS: oxyCODONE/ACETAMINOPHEN 10 MG/325 MG TAB PO PRN (07:40)
[2017-03-13] MEDS: METOCLOPRAMIDE HCL 10 MG TAB PO SCH (07:40)
[2017-03-13] MEDS: SODIUM CHLORIDE 0.9% FLUSH 10 ML FLUSH IV FLUSH SCH (07:40)
[2017-03-13] MEDS: PANTOPRAZOLE SOD 40 MG DELAYED RELEASE TAB PO SCH (07:41)
[2017-03-13] MEDS: APIXABAN 5 MG TABLET PO SCH ×2 (07:41→14:57)
[2017-03-13] MEDS: DOCUSATE SODIUM 50 MG/SENNA 8.6 MG TAB PO SCH (07:41)
[2017-03-13] MEDS: METOPROLOL TARTRATE 25 MG TAB PO SCH (07:42)
[2017-03-13 08:00] VITALS: O2SAT 94
[2017-03-13] MEDS ORDERED: APIX5TAB PO ×2 (09:39)
[2017-03-13 11:00] VITALS: BP 100/64; PULSE 87; RESP 18; TEMP 98.2; O2SAT 92
[2017-03-13 11:04] VITALS: PULSE 87
[2017-03-13 11:10] VITALS: O2SAT 95
[2017-03-13] MEDS ORDERED: OXYGENTANK NAS.CANULA (11:38)
--- NOTE | 2017-03-13 13:30 | HHI.DS ---
Discharge Summary Admission Date Mar 10, 2017 at 6:41 pm Discharge Date: Mar 13, 2017 Admitting Diagnosis NSTEMI (1) Bilateral pulmonary embolism ICD Code: I26.99 - Other pulmonary embolism without acute cor pulmonale (2) Hypertension ICD Code: I10 - Essential (primary) hypertension Status: Chronic (3) Hyperlipidemia ICD Code: E78.5 - Hyperlipidemia, unspecified Status: Chronic Procedures 03/12/2017 Echo CONCLUSIONS Normal left ventricular size. Wall thickness is normal. The right ventricular size is normal. The right ventricular systoilc function is decreased. The left atrial size is mildly dilated. The right atrial size is mildly dilated. The interatrial septum not well visualized. Trace mitral valve regurgitation. Aortic valve sclerosis is present. No aortic valve stenosis. There is mild tricuspid valve regurgitation. There is estimated mild pulmonary hypertension present (range 40-50 mmHg). The pulmonary valve is not well visualized. Brief History - From Admission History from patient, ER physician notes, and review of medical records. Patient reports that he was having chest pressure with associated dyspnea for the past 3 days. Denies any peripheral edema. Also reports a feeling of palpitations. He states this was the main problem though. She also started feeling dizziness although he did not pass out. He states that his palpitations were quite severe that he measured as had home and the heart rate was around 119 when he walks from the living room to dining room. His normal heart rate is around 80s on medications. He states he takes metoprolol because he does have history of high heart rate. Denies any radiations of his chest tightness. Denies fever. But did have cold sweats. He reports of coughing episodes but this only happened early in the mornings when he woke up. He states all the phlegm from overnight stayed behind and he would cough so hard in the morning that he would vomit about once in the morning. No yellow or green sputum. No hematemesis. When asked about diarrhea, patient states he only had one episode of diarrhea this morning. Denies seeing any blood in his stool or in his urine. Patient reports of history of CADstatus post CABG many years ago. 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 CBC/BMP: 03/11/17 0200 03/13/17 0220 Significant Findings Laboratory Tests Test 03/10/17 17:10 03/10/17 23:30 03/11/17 02:00 03/11/17 12:30 Red Blood Count 4.08 MIL/MM3 (4.50-5.90) 3.78 MIL/MM3 (4.50-5.90) Hematocrit 38.3 % (39.0-51.0) 35.5 % (39.0-51.0) Monocytes (%) (Auto) 9.7 % (0.0-8.0) 9.1 % (0.0-8.0) Monocytes # (Auto) 1.1 TH/MM3 (0-0.9) Prothrombin Time 12.0 SEC (9.8-11.6) Blood Urea Nitrogen 24 MG/DL (7-18) 22 MG/DL (7-18) Estimat Glomerular Filtration Rate 55 ML/MIN (>89) 66 ML/MIN (>89) Total Creatine Kinase 1754 U/L (39-308) 1346 U/L (39-308) 1228 U/L (39-308) Creatine Kinase MB 11.9 NG/ML (0.5-3.6) 9.8 NG/ML (0.5-3.6) 9.2 NG/ML (0.5-3.6) Troponin I 0.17 NG/ML (0.02-0.05) 0.16 NG/ML (0.02-0.05) 0.15 NG/ML (0.02-0.05) Hemoglobin 11.6 GM/DL (13.0-17.0) Activated Partial Thromboplast Time 40.2 SEC (24.3-30.1) 33.4 SEC (24.3-30.1) Test 03/11/17 20:34 03/12/17 02:24 03/13/17 02:20 Activated Partial Thromboplast Time 42.5 SEC (24.3-30.1) 46.7 SEC (24.3-30.1) 30.6 SEC (24.3-30.1) Calcium Level 7.9 MG/DL (8.5-10.1) 7.9 MG/DL (8.5-10.1) Estimat Glomerular Filtration Rate 80 ML/MIN (>89) 80 ML/MIN (>89) B-Type Natriuretic Peptide 502 PG/ML (0-100) Chloride Level 108 MEQ/L (98-107) Anion Gap 4 MEQ/L (5-15) Total Creatine Kinase 342 U/L (39-308) Creatine Kinase MB 4.8 NG/ML (0.5-3.6) PE at Discharge GENERAL: AOX3, NAD. SKIN: Warm and dry. HEAD: Normocephalic. EYES: No scleral icterus. No injection or drainage. NECK: Supple, trachea midline. No JVD or lymphadenopathy. CARDIOVASCULAR: Regular rate and rhythm without murmurs, gallops, or rubs. RESPIRATORY: Breath sounds equal bilaterally. No accessory muscle use. GASTROINTESTINAL: Abdomen soft, non-tender, nondistended. MUSCULOSKELETAL: No cyanosis, or edema. BACK: Nontender without obvious deformity. No CVA tenderness. Pt update on day of discharge Patient is doing well. No chest pain, SOB, fever, chills. Walk test indicated need for supplemental O2. Hospital Course Mr. Bonilla is a pleasant 66 year old male with a history of CAD s/p CABG in 2009 who presented to the ED due to sudden onset of shortness of breath and chest discomfort that started 4 or 5 days prior to this admission. VQ scan showed evidence of bilateral PE. - Bilateral pulmonary embolism - Patient remains hemodynamically stable. - Patient was discharged home on supplemental O2. Walk test indicated need for O2. - Apixaban 10mg BID X total 7 days, then 5mg BID indefinitely. - Patient is advised to avoid NSAIDs as much as possible including Ibuprofen , Naproxen. - Hypertension - CAD s/p CABG in 2009 - Hyperlipidemia - Continue metoprolol 25mg BID. Per Cardiology note, he has been unable to tolerate statin before. - Will discontinue aspirin since mild troponin elevation is thought to be related to PE. - If recommended by cardiology, Aspirin 81mg Qday could be considered. - Patient will follow up with Cardiology (Dr. Zuniga). - Rhabdomyolysis - Mild kidney injury, creatinine 1.11 --> 0.94. - Total CK 1346 --> 1228 --> 342. - Received NS. Full code. Apixaban. Pt Condition on Discharge: Good Discharge Disposition: Discharge Home Discharge Time: > 30 minutes Discharge Instructions DIET: Follow Instructions for: Heart Healthy Diet Activities you can perform: Regular-No Restrictions Follow up Referrals: Cardiology - 1 Week with Cate Zuniga MD PCP Follow-up - 1 Week New Medications: Apixaban (Eliquis) 5 Mg Tab 5 MG PO BID for Blood Clot Prevention, #60 TAB 3 Refills START on Evening of 03/19/2017. Oxygen tank (Oxygen tank) 1 Ea Tank LITER JOEL.CANULA CONTINUOUS for HYPOXEMIA PREVENTION, #1 Oxygen Concentrator Portable Gaseous 2 L/min via Nasal Cannula Continuous For 99 months Apixaban (Eliquis) 5 Mg Tab 10 MG PO BID for Blood Clot Prevention, #12 TAB START 5mg twice a day AFTER finishing this prescription. Continued Medications: Baclofen (Baclofen) 10 Mg Tab 10 MG PO Q8HR PRN for MUSCLE SPASM, TAB 0 Refills Lorazepam (Lorazepam) 1 Mg Tab 1 MG PO DAILY PRN for ANXIETY, TAB 0 Refills Metoclopramide (Reglan) 5 Mg Tab 5 MG PO TIDAC, TAB 0 Refills Metoprolol Tartrate (Metoprolol Tartrate) 25 Mg Tab 25 MG PO BID, #30 TAB 0 Refills Morphine PF Inj (Infumorph 200 Inj) 10 Mg/Ml Inj 0.75 MG EPIDURAL CONTINUOUS PRN for PAIN SCALE 1 TO 10 Omeprazole (Omeprazole) 40 Mg Cap 40 MG PO DAILY, #30 CAP 0 Refills Oxycodone (Oxycodone) 10 Mg Tab 10 MG PO Q6H PRN for PAIN, TAB 0 Refills Discontinued Medications: Aspirin DR (Aspirin EC) 325 Mg Tabdr 325 MG PO DAILY for heart for 30 Days, TAB Srinivasan Schultz DO Mar 13, 2017 13:30
== END 2017-03-13 15:00 | disposition home or self-care (01) | DRG 176 ==
LOC: NEPC 16:29 → NEDA 18:41 → HCIS 22:11 → HCVR 03-11 11:05
PROVIDERS: ADMIT Hospitalist; ATTEND Hospitalist
DX: I26.99 Other pulmonary embolism without acute cor pulmonale (principal); I11.0 Hypertensive heart disease with heart failure; M62.82 Rhabdomyolysis; I27.2 Other secondary pulmonary hypertension; I95.9 Hypotension, unspecified; I50.9 Heart failure, unspecified; G62.9 Polyneuropathy, unspecified; J44.9 Chronic obstructive pulmonary disease, unspecified; I25.10 Atherosclerotic heart disease of native coronary artery without angina pectoris; R00.0 Tachycardia, unspecified; K21.9 Gastro-esophageal reflux disease without esophagitis; E78.5 Hyperlipidemia, unspecified; R91.1 Solitary pulmonary nodule; R09.02 Hypoxemia; I08.3 Combined rheumatic disorders of mitral, aortic and tricuspid valves; G89.29 Other chronic pain; M54.9 Dorsalgia, unspecified; M19.90 Unspecified osteoarthritis, unspecified site; Z86.718 Personal history of other venous thrombosis and embolism; Z87.891 Personal history of nicotine dependence; Z88.7 Allergy status to serum and vaccine; Z95.1 Presence of aortocoronary bypass graft; Z98.1 Arthrodesis status
CPT/HCPCS: 71010; 76937; 78582; 80048; 82550; 82552; 83735; 83880; 84484; 85025; 85610; 85730; 93005; 93306; 94620; A9540; A9567; J1644; J2405; J7030

== ENCOUNTER 2017-05-13 12:09 | Emergency (ER) | payer MEDICARE ==
[~2017-05-13] VITALS: Ht 177.8 cm; Wt 75.0 kg
[~2017-05-13 12:09] MED LIST changes: +APIX5TAB PO; -ASPI325T33 PO; +OXYGENTANK NAS.CANULA
[2017-05-13 12:11] VITALS: BP 130/87; PULSE 89; RESP 15; TEMP 98.6; O2SAT 97
--- NOTE | 2017-05-13 12:45 | RADRPT ---
EXAM DATE/TIME: 05/13/2017 12:29 [place] COMPARISON: CHEST PA & LAT, April 15, 2014, 12:47. CHEST SINGLE AP, March 10, 2017, 17:04. CHEST PA & LAT , August 01, 2015, 12:48. INDICATIONS : Chest pain. Patient complains of weakness, severe headache at base of skull. MEDICAL HISTORY : Chronic obstructive pulmonary disease. Anneliese Cuello, hiatal hernia SURGICAL HISTORY : CABG. Lumbar fusion. ENCOUNTER: Initial ACUITY: 2 days PAIN SCORE: 0/10 LOCATION: Bilateral chest FINDINGS: PA and lateral views of the chest demonstrate the lungs to be symmetrically aerated without evidence of mass, infiltrate or effusion. There is a stable 1.2 cm nodular density overlying the right upper l maulik. This is unchanged from 2014. The cardiomediastinal contours are unremarkable. There is evidence of previous cardiothoracic surgery. Osseous structures are intact. No significant changes. CONCLUSION: No acute disease. No significant change has occurred. Fritz Seaman MD on May 13, 2017 at 12:42 Board Certified Radiologist. This report was verified electronically.
[2017-05-13 13:30] VITALS: RESP 18; O2SAT 97
--- NOTE | 2017-05-13 13:35 | PD ---
HPI Chief Complaint: Medical Clearance Time Seen by Provider: 12:49 Travel History International Travel<30 days: No Contact w/Intl Traveler<30days: No Traveled to known affect area: No History of Present Illness HPI 66-year-old male with PMH of COPD, CAD status post CABG, chronic neck and lumbar pain with implanted pain pump, recent PE on Eliquis presents to the ED for evaluation of 2 week history of weakness, tremor, muscle spasm, intermittent 2/10 chest pain. Chest pain lasts one or 2 seconds before resolving. No alleviating or exacerbating factors reported. The patient also reports palpitations, cold sweats, headache, dizziness, blurred vision, urinary urgency. The patient states that he recently had his pain pump refilled with morphine. He saw his pain management doctor yesterday to have the dose adjusted because he thought his symptoms may be related to that. He has not seen his primary care since being discharged from the hospital with PE. PFSH Past Medical History Hx Anticoagulant Therapy: Yes Arthritis: Yes Asthma: No Autoimmune Disease: No Blood Disorders: No Anxiety: Yes Depression: No Heart Rhythm Problems: Yes (REPORTS TAKING METOPROLOL) Cancer: No Cardiac Catheterization: No Cardiovascular Problems: Yes High Cholesterol: Yes (PATIENT REPORTS UNSURE) Chest Pain: Yes Congestive Heart Failure: Yes COPD: Yes Cerebrovascular Accident: No Coronary Artery Disease: Yes Diabetes: No Diminished Hearing: No Endocrine: No Gastrointestinal Disorders: Yes (REFLUX) GERD: Yes Genitourinary: No Hepatitis: No Hiatal Hernia: Yes Hypertension: Yes Immune Disorder: No Implanted Vascular Access Dvce: Yes Kidney Stones: No Musculoskeletal: Yes (ARTHRITIS, DDD) Neurologic: Yes (NEUROPATHY LEFT FOOT/LEG/ARM/HAND) Psychiatric: Yes (ANXIETY) Reproductive: No Respiratory: Yes Immunizations Current: No Migraines: No Renal Failure: No Seizures: No Sleep Apnea: No Thyroid Disease: No Triglycerides - High: Yes Ulcer: No PNEUMOCCOCAL Vaccine (Year): 2 Past Surgical History Abdominal Surgery: Yes (SARAH. ING. REP., (RIGHT SIDE X2), APPY) AICD: No Appendectomy: Yes Arteriovenous Shunt: No Body Medical Devices: LUMBAR HARDWARE,pain pump Coronary Artery Bypass Graft: Yes Ear Surgery: No Endocrine Surgery: No Eye Surgery: No Genitourinary Surgery: No Gynecologic Surgery: No Insulin Pump: No Joint Replacement: No Neurologic Surgery: Yes Oral Surgery: No Pacemaker: No Thoracic Surgery: Yes (CABG (3 VESSEL)) Other Surgery: Yes (hernia x2) Social History Alcohol Use: No Tobacco Use: No Substance Use: No Allergies-Medications (Allergen,Severity, Reaction): Coded Allergies: Influenza Virus Vaccines (Unverified Allergy, Severe, GUILLIAN BARRE, 02/08) adhesive (Unverified Allergy, Severe, SKIN BREAKDOWN, 02/08/17) PAPER TAPE OK diatrizoate meglumine (Unverified Allergy, Severe, Anaphylaxis, 02/08/17) gadobenic acid (Unverified Allergy, Severe, Anaphylaxis, 02/08/17) gadodiamide (Unverified Allergy, Severe, Anaphylaxis, 02/08/17) gadoteridol (Unverified Allergy, Severe, Anaphylaxis, 02/08/17) iodixanol (Unverified Allergy, Severe, Anaphylaxis, 02/08/17) iohexol (Unverified Allergy, Severe, Anaphylaxis, 02/08/17) povidone-iodine (Unverified Allergy, Unknown, 02/08/17) Pt reacted to contrast dye request no Betadine Reported Meds & Prescriptions Reported Meds & Active Scripts Active Oxygen tank (Oxygen) 1 Ea Tank Liter [employer] CONTINUOUS Oxygen Concentrator Portable Gaseous 2 L/min via Nasal Cannula Continuous For 99 months Eliquis (Apixaban) 5 Mg Tab 5 Mg PO BID START on Evening of 03/19/2017. Reported Infumorph 200 Inj (Morphine Sulfate) 10 Mg/Ml Inj 0.75 Mg EPIDURAL CONTINUOUS PRN Lorazepam 1 Mg Tab 1 Mg PO DAILY PRN Oxycodone (Oxycodone HCl) 10 Mg Tab 10 Mg PO Q6H PRN Reglan (Metoclopramide HCl) 5 Mg Tab 5 Mg PO TIDAC Baclofen 10 Mg Tab 10 Mg PO Q8HR PRN Metoprolol Tartrate 25 Mg Tab 25 Mg PO BID Review of Systems Except as stated in HPI: all other systems reviewed are Neg Physical Exam Narrative GENERAL: Well-nourished, well-developed white male in no acute distress. SKIN: Focused skin assessment warm/dry. HEAD: Normocephalic. EYES: No scleral icterus. No injection or drainage. NECK: Supple, trachea midline. No JVD or lymphadenopathy. CARDIOVASCULAR: Regular rate and rhythm without murmurs, gallops, or rubs. RESPIRATORY: Breath sounds clear and equal bilaterally. No accessory muscle use. GASTROINTESTINAL: Abdomen soft, non-tender, nondistended. Active bowel sounds MUSCULOSKELETAL: No cyanosis, or edema. NEUROLOGICAL: Awake and alert. Cranial nerves II through XII intact. Motor and sensory grossly within normal limits. Five out of 5 muscle strength in all muscle groups. Normal speech. No pronator drift. No ataxia. BACK: Nontender without obvious deformity. No CVA tenderness. Data Data Last Documented VS Vital Signs Date Time Temp Pulse Resp B/P (MAP) Pulse Ox O2 Delivery O2 Flow Rate FiO2 05/13/17 13:30 98 Room Air 05/13/17 13:30 88 18 05/13/17 13:30 05/13/17 12:11 98.6 Orders Orders Electrocardiogram (05/13/17 12:21) Complete Blood Count With Diff (05/13/17 12:21) Basic Metabolic Panel (Bmp) (05/13/17 12:21) Ckmb (Isoenzyme) Profile (05/13/17 12:21) Troponin I (05/13/17 12:21) Iv Access Insert/Monitor (05/13/17 12:21) Ecg Monitoring (05/13/17 12:21) Oxygen Administration (05/13/17 12:21) Oximetry (05/13/17 12:21) Chest, Pa & Lat (05/13/17 12:21) Ct Brain W/O Iv Contrast(Rout) (05/13/17 ) Blood Culture (05/13/17 13:11) Lactic Acid (05/13/17 13:11) Magnesium (Mg) (05/13/17 13:29) Sodium Chlor 0.9% 1000 Ml Inj (Ns 1000 M (05/13/17 13:45) Meclizine (Antivert) (05/13/17 13:45) CKMB (05/13/17 13:34) CKMB% (05/13/17 13:34) Ed Discharge Order (05/13/17 15:34) Labs Laboratory Tests Test 05/13/17 13:33 05/13/17 13:34 Lactic Acid Level 0.6 mmol/L White Blood Count 9.6 TH/MM3 Red Blood Count 3.97 MIL/MM3 Hemoglobin 12.4 GM/DL Hematocrit 36.7 % Mean Corpuscular Volume 92.5 FL Mean Corpuscular Hemoglobin 31.3 PG Mean Corpuscular Hemoglobin Concent 33.8 % Red Cell Distribution Width 13.8 % Platelet Count 240 TH/MM3 Mean Platelet Volume 7.7 FL Neutrophils (%) (Auto) 60.3 % Lymphocytes (%) (Auto) 27.7 % Monocytes (%) (Auto) 9.2 % Eosinophils (%) (Auto) 1.9 % Basophils (%) (Auto) 0.9 % Neutrophils # (Auto) 5.8 TH/MM3 Lymphocytes # (Auto) 2.7 TH/MM3 Monocytes # (Auto) 0.9 TH/MM3 Eosinophils # (Auto) 0.2 TH/MM3 Basophils # (Auto) 0.1 TH/MM3 CBC Comment DIFF FINAL Differential Comment Blood Urea Nitrogen 16 MG/DL Creatinine 0.94 MG/DL Random Glucose 99 MG/DL Calcium Level 8.7 MG/DL Sodium Level 139 MEQ/L Potassium Level 4.6 MEQ/L Chloride Level 102 MEQ/L Carbon Dioxide Level 31.8 MEQ/L Anion Gap 5 MEQ/L Estimat Glomerular Filtration Rate 80 ML/MIN Magnesium Level 2.0 MG/DL Total Creatine Kinase 3383 U/L Creatine Kinase MB 22.1 NG/ML Creatine Kinase MB % 0.7 % Troponin I LESS THAN 0.02 NG/ML MDM Medical Decision Making Medical Screen Exam Complete: Yes Emergency Medical Condition: Yes Differential Diagnosis Anxiety versus electrolyte abnormality versus UTI versus less likely ACS versus less likely ICH versus other Narrative Course 66-year-old male with PMH of COPD, CAD status post CABG, chronic neck and lumbar pain with implanted pain pump, recent PE on Eliquis presents to the ED for evaluation of 2 week history of weakness, tremor, muscle spasm, intermittent 2/10 chest pain. Chest pain lasts one or 2 seconds before resolving. The patient also reports palpitations, cold sweats, headache, dizziness, blurred vision, urinary urgency. The patient states that he recently had his pain pump refilled with morphine. Vitals reviewed. Physical exam reveals a nontoxic-appearing white male in no acute distress. He does have a tremor of the bilateral lower extremities that resolves with intention. EKG rate 81, sinus rhythm. SC interval 167, QRS 99, QTc 425. Normal axis. Non -specific ST abnormality. Reviewed by Dr. Tee. CXR: No acute disease. CT brain: No acute disease No concerning abnormalities of the CBC or CMP. Cardiac enzymes are negative 1. UA pending The patient did not wish to stay in the ED any longer. He requested that I canceled the urinalysis and that he be discharged. He plans to follow up with his neurologist. Patient is stable and discharged for outpatient follow-up. Diagnosis Primary Impression: Tremor Additional Impression: Cephalgia Qualified Codes: R51 - Headache Referrals: Neurologist Primary Care Physician Patient Instructions: General Instructions, Tremors (ED) Additional Instructions: Rest, hydrate. Return to normal, gentle activity as tolerated. Follow up with your neurologist as discussed. Return to the ED for any urgent or emergent medical condition. Disposition: 01 DISCHARGE HOME Condition: Stable Amy Wright May 13, 2017 13:35
[2017-05-13] MEDS ORDERED: SODIUM CHLOR 0.9% 1000 ML INJ 1,000 ML IV ONE (13:45)
[2017-05-13] MEDS ORDERED: MECLIZINE HCL 25 MG TAB PO ONE (13:45)
[2017-05-13 13:55] LABS: AUTOMATED NEUTROPHIL # 5.8 TH/MM3 (1.8-7.7); BASOPHIL # 0.1 TH/MM3 (0-0.2); BASOPHIL % 0.9 % (0.0-2.0); EOSINOPHIL # 0.2 TH/MM3 (0-0.4); EOSINOPHIL % 1.9 % (0.0-4.0); HEMATOCRIT 36.7 % (39.0-51.0); HEMO FLAGS DIFF FINAL; LYMPH % 27.7 % (9.0-44.0); LYMPHOCYTE # 2.7 TH/MM3 (1.0-4.8); MEAN CELL VOLUME 92.5 FL (80.0-100.0); MEAN CORPUSCULAR HEMOGLOBIN 31.3 PG (27.0-34.0); MEAN CORPUSCULAR HGB CONC 33.8 % (32.0-36.0); MONO % 9.2 % (0.0-8.0); NEUT % 60.3 % (16.0-70.0); PLATELET COUNT 240 TH/MM3 (150-450); RED BLOOD COUNT 3.97 MIL/MM3 (4.50-5.90); RED CELL DISTRIBUTION WIDTH 13.8 % (11.6-17.2); WHITE BLOOD COUNT 9.6 TH/MM3 (4.0-11.0)
[2017-05-13 14:16] LABS: ANION GAP 5 MEQ/L (5-15); BICARBONATE 31.8 MEQ/L (21.0-32.0); BLOOD UREA NITROGEN 16 MG/DL (7-18); CHLORIDE 102 MEQ/L (98-107); GLOMERULAR FILTRATION RATE 80 ML/MIN (>89); POTASSIUM 4.6 MEQ/L (3.5-5.1); SODIUM (NA) 139 MEQ/L (136-145)
--- NOTE | 2017-05-13 14:21 | RADRPT ---
EXAM DATE/TIME: 05/13/2017 13:56 [facility] COMPARISON: CT BRAIN W/O CONTRAST, November 10, 2011, 16:38. INDICATIONS : Headache, generalized weakness. RADIATION DOSE: 56.42 CTDIvol (mGy) MEDICAL HISTORY : Cardiovascular disease. Chronic obstructive pulmonary disease. SURGICAL HISTORY : Fusion, cervical. ENCOUNTER: Initial ACUITY: 1 day PAIN SCALE: 3/10 LOCATION: Bilateral cranial TECHNIQUE: Multiple contiguous axial images were obtained of the head. Using automated exposure control and adj ustment of the mA and/or kV according to patient size, radiation dose was kept as low as reasonably a chievable to obtain optimal diagnostic quality images. DICOM format image data is available electro nically for review and comparison. FINDINGS: CEREBRUM: The ventricles are normal for age. No evidence of midline shift, mass lesion, hemorrhage or acute in farction. No extra-axial fluid collections are seen. POSTERIOR FOSSA: The cerebellum and brainstem are intact. The 4th ventricle is midline. The cerebellopontine angle i s unremarkable. EXTRACRANIAL: The visualized portion of the orbits is intact. SKULL: The calvaria is intact. No evidence of skull fracture. CONCLUSION: No acute intracranial disease. Max Ojeda MD on May 13, 2017 at 14:18 Board Certified Radiologist. This report was verified electronically.
[2017-05-13 14:29] LABS: CREATINE KINASE 3383 U/L (39-308)
[2017-05-13 14:41] LABS: CKMB 22.1 NG/ML (0.5-3.6)
--- NOTE | 2017-05-14 09:36 | EKG ---
Date Performed: 05/13/2017 Time Performed: 13:43:34 PTAGE: 66 years EKG: Sinus rhythm NONSPECIFIC T-WAVE ABNORMALITY Compared to previous tracing, nonspecific T wave changes have improve d BORDERLINE ECG PREVIOUS TRACING : 03/11/2017 09.52 DOCTOR: Moe Farrar Interpretating Date/Time 05/14/2017 09:36:14
== END 2017-05-13 16:12 | disposition home or self-care (01) ==
LOC: NEPC 12:09
DX: R25.1 Tremor, unspecified (principal); R51 Headache; R07.9 Chest pain, unspecified; R39.15 Urgency of urination; R42 Dizziness and giddiness; R00.2 Palpitations; H53.8 Other visual disturbances; I11.0 Hypertensive heart disease with heart failure; I50.9 Heart failure, unspecified; I25.10 Atherosclerotic heart disease of native coronary artery without angina pectoris; J44.9 Chronic obstructive pulmonary disease, unspecified; Z79.01 Long term (current) use of anticoagulants
CPT/HCPCS: 70450; 71020; 80048; 82550; 82552; 83605; 83735; 84484; 85025; 87040; 93005; 99285; J7030